=== PATIENT | female | born 1960 ===

== ENCOUNTER 2017-09-19 17:28 | Inpatient (IN) | payer MEDICARE ==
[2017-09-19 19:51] VITALS: BMI 22.5
--- NOTE | 2017-09-19 23:39 | CP.PCM.HP ---
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 A Right Below the Knee Amputation was done on 09/14/17 and the patient is now transferred to the [facility] for Continued care and Physical therapy. She is sleepy but arousable to answer questions. complains of pain to the right leg stump, no dizziness, nausea, vomits, No chest nor abdominal pain. She had Hemodialysis Yesterday 09/18/17. Next dialysis is for 09/21/17 PMH: ESRD on HD T Th and Sa; Anemia; Anxiety; Asthma, COPD; CAD; Diverticulitis ; DVT; HTN; GERD; Hypothyroidism; Seizure; Sleep Apnea; Pulmonary Hypertensio; PAD PSH: Coronary Stenting; Tonsillitis; Bilateral leg arterial bipass; AV graft; Hernia repair; Cesarian Section X2; Appendectomy SH: Former Smoker; No illegal drug use; No Alcohol use; FH: State: No known family Hx Allergies: Cipro; Hydralazine; Vancomycin and Radiation Dye Mediction: Reviewed Present on Admission - Present on Admission Any Indicators Present on Admission: No History of DVT/PE: No History of Uncontrolled Diabetes: No Urinary Catheter: No Decubitus Ulcer Present: No Review of Systems - Constitutional Constitutional: absent: Chills, Fever, Headache - EENT Eyes: Requires Corrective Lenses. absent: Blurred Vision, Diplopia Ears: absent: Decreased Hearing, Tinnitus Nose/Mouth/Throat: absent: Epistaxis, Nasal Congestion, Sinus Pain, Sinus Pressure - Cardiovascular Cardiovascular: absent: Chest Pain, Dyspnea, Edema - Respiratory Respiratory: Wheezing. absent: Cough, Stridor - Gastrointestinal Gastrointestinal: Constipation. absent: Diarrhea, Nausea, Vomiting - Genitourinary Genitourinary: Flank Pain, Urinary Frequency. absent: Dysuria Additional comments: Oliguria - Musculoskeletal Additional comments: Post surgical right leg pain - Integumentary Integumentary: absent: Rash, Sores - Neurological Neurological: absent: Confusion, Dizziness, Focal Weakness, Headaches, Weakness - Psychiatric Psychiatric: Anxiety. absent: Depression, Panic Attacks - Endocrine Endocrine: absent: Palpitations, Polydipsia, Polyphagia, Polyuria - Hematologic/Lymphatic Hematologic: absent: Easy Bleeding, Easy Bruising Past Patient History - Infectious Disease Hx of Infectious Diseases: None - Tetanus Immunizations Tetanus Immunization: Unknown - Past Medical History & Family History Past Medical History?: Yes - Past Social History Smoking Status: Former Smoker Chewing Tobacco Use: No Cigar Use: No Alcohol: None - CARDIAC Hx Congestive Heart Failure: Yes Hx Hypercholesterolemia: Yes Hx Hypertension: Yes - PULMONARY Hx Chronic Obstructive Pulmonary Disease (COPD): Yes - NEUROLOGICAL HX Cerebrovascular Accident: Yes - HEENT Hx HEENT Problems: Yes 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) Other/Comment: tinnitus, - RENAL Date of Last Dialysis Treatment: 08/08/17 - ENDOCRINE/METABOLIC Hx Diabetes Mellitus Type 2: No Hx Hypothyroidism: Yes - HEMATOLOGICAL/ONCOLOGICAL Hx Blood Transfusions: Yes Hx Blood Transfusion Reaction: No - INTEGUMENTARY Hx Dermatological Problems: Yes (non healing sugical wound to right ankle) Other/Comment: inner right ankle wounddry brown had 2 skin grafts, outer back of r foot red/purple closed wound with 2 small dry red areas painful, r foot swollen +2 pitting edema, r ft cold to touch, multiple skin discolorations to both arms, skin discolorations ble, fatty tumor left back r inner ankle wound healing, thick toenails both feet - MUSCULOSKELETAL/RHEUMATOLOGICAL Hx Arthritis: Yes - GASTROINTESTINAL Hx Gastrointestinal Disorders: Yes (chronic nausea, constipation,vomiting) Hx Crohn's Disease: No Hx Diverticulitis: Yes Hx Gall Bladder Disease: No Hx Gastroesophageal Reflux: Yes Hx Pancreatitis: No Other/Comment: diverticulosis, poor appetite and weight loss, hiatal hernia x2 - GENITOURINARY/GYNECOLOGICAL Hx Sexually Transmitted Disorders: No - PSYCHIATRIC Hx Emotional Abuse: No Hx Physical Abuse: No Hx Substance Use: No - SURGICAL HISTORY Hx Surgeries: Yes (tonsillectomy) Hx Appendectomy: Yes Hx Cardiac Catheterization: Yes Hx Section: Yes (X2) Hx Coronary Stent: Yes Hx Herniorrhaphy: Yes Hx Tonsillectomy: Yes Other/Comment: AV graft/ Bilateral leg Arterial bipass - ANESTHESIA Hx Anesthesia: Yes Hx Anesthesia Reactions: No Hx Malignant Hyperthermia: No Meds Allergies/Adverse Reactions: Allergies Allergy/AdvReac Type Severity Reaction Status Date / Time ciprofloxacin Allergy RASH Verified 09/19/17 21:49 hydralazine Allergy RASH Verified 09/19/17 21:49 vancomycin Allergy SHORTNESS Verified 09/19/17 21:[address] dye Allergy RASH Uncoded 09/19/17 21:49 Physical Exam - Constitutional Appears: No Acute Distress - Head Exam Head Exam: ATRAUMATIC, NORMAL INSPECTION, NORMOCEPHALIC - Eye Exam Eye Exam: EOMI, Normal appearance Pupil Exam: NORMAL ACCOMODATION, PERRL - ENT Exam ENT Exam: Mucous Membranes Moist, Normal Exam, Normal External Ear Exam - Neck Exam Neck exam: Positive for: Full Rom, Normal Inspection. Negative for: Lymphadenopathy, Tenderness - Respiratory Exam Respiratory Exam: absent: Rhonchi, Wheezes Additional comments: Inspiratory rales in both lung curran Left>right - Cardiovascular Exam Cardiovascular Exam: REGULAR RHYTHM, RRR, +S1, +S2. absent: Gallop - GI/Abdominal Exam GI & Abdominal Exam: Normal Bowel Sounds, Soft. absent: Mass, Organomegaly, Tenderness - Rectal Exam Rectal Exam: Deferred - Extremities Exam Additional comments: Right leg with post surgical dressing at BKA - Back Exam Back exam: NORMAL INSPECTION. absent: CVA tenderness (L), CVA tenderness (R) - Neurological Exam Neurological exam: CN II-XII Intact, Oriented x3, Reflexes Normal Additional comments: Sleepy but easily aroused and able to answer to questioning - Psychiatric Exam Psychiatric exam: Normal Affect, Normal Mood - Skin Skin Exam: Dry, Intact, Normal Color, Warm Results - Labs Labs: PND Assessment & Plan - Assessment and Plan (Free Text) Assessment: #. PAD s/p Right BKA #. ESRD On HD #. Anemia of Chronic Disease #. Anxiety #. Hypothyroidism #. HTN #. Seizure Plan: 56 years old female with hx ESRD on HD, DM, HTN and PAD, who was admitted to the [facility] on 09/06/17 because of Chronic right leg wound, had a 'Right Below the Knee Amputation' on 09/14/17. He is now transferred to the [facility] for Continued care and Physical therapy. #. PAD s/p Right BKA - Pain management - Wound care #. ESRD On HD Monday, and Monday - Consult Dr Hirsch Unloader Operator for Dialysis #. Anemia of Chronic Disease - Follow Iron panel - Vitamin B12 - Folate #. Anxiety - Continue Ativan PRN #. Hypothyroidism - Synthroid - TSH #. HTN - Zestril/Coreg/Norvasc/Catapress #. Seizure - Keppra #. CAD s/p coronary stent placement. - Coreg/ASA/lipitor #. DVT Prophylaxis with Heparin #. Code Status: Full - Date & Time Date: 09/19/17 Time: 23:39
[2017-09-20] MEDS: Albuterol 0.083% Inhal Sol (2.5 mg/3 mL) UD IH SCH ×5 (01:26→19:11)
[2017-09-20] MEDS: Levothyroxine 75 MCG TAB PO SCH (06:36)
[2017-09-20 06:46] LABS: BASO # 0.1 K/uL (0.0-0.2); BASO % 0.4 % (0.0-2.0); EOS % 0.4 % (0.0-4.0); HEMOGLOBIN 8.7 g/dL (12.0-16.0); LYMPH # 1.2 K/uL (1.0-4.3); LYMPH % 9.8 % (20.0-40.0); MEAN CELL VOLUME 89.9 fl (81.0-99.0); MEAN CORPUSCULAR HEMOGLOBIN 28.2 pg (27.0-31.0); MEAN CORPUSCULAR HGB CONC 31.4 g/dL (33.0-37.0); MEAN PLATELET VOLUME 9.7 fl (7.2-11.7); MONO % 8.2 % (0.0-10.0); NEUT % 81.2 % (50.0-75.0); PLATELET COUNT 269 K/uL (130-400); RBC 3.08 Mil/uL (3.80-5.20); RED CELL DISTRIBUTION WIDTH 18.9 % (11.5-14.5); WHITE BLOOD COUNT 12.3 K/uL (4.8-10.8)
[2017-09-20 06:56] LABS: INR 1.2; PROTHROMBIN TIME 12.9 Seconds (9.8-13.1)
[2017-09-20 06:58] LABS: PARTIAL THROMBOPLASTIN TIME 29.2 Seconds (25.6-37.1)
[2017-09-20 07:00] LABS: ALB/GLOB RATIO 1.4 (1.0-2.1); ALBUMIN 3.8 g/dL (3.5-5.0); CALCIUM 9.3 mg/dL (8.4-10.2)
[2017-09-20] MEDS ORDERED: Morphine 30 mg Immediate Release Tab PO SCH (09:00)
[2017-09-20] MEDS ORDERED: Patient's Own Med (Lisinopril [Zestril] 40 MG) PO SCH (09:00)
[2017-09-20] MEDS: NIFEdipine 30 mg ER Tab PO SCH (09:10)
[2017-09-20] MEDS: Pantoprazole 40 mg EC Tab PO SCH (09:11)
--- NOTE | 2017-09-20 10:26 | CP.PCM.CON ---
History of Present Illness - History of Present Illness History of Present Illness: 56 yo woman w/ multiple comorbidities is s/p right BKA and referred for pain management. Per report, patient had been on MS Contin and Dilaudid IV, as well as Neurontin 300mg q8h, previously at [facility], but since transfer patient has been lethargic and incoherent. She's arousable but unable to carry on a conversation to give history. She doesn't appear to be in discomfort, resting in bed with her eyes close, moaning/rambling but not specifically about pain. When asked about pain she pointed to both legs. Past Patient History - Infectious Disease Hx of Infectious Diseases: None - Tetanus Immunizations Tetanus Immunization: Unknown - Past Medical History & Family History Past Medical History?: Yes - Past Social History Smoking Status: Former Smoker Chewing Tobacco Use: No Cigar Use: No Alcohol: None - CARDIAC Hx Congestive Heart Failure: Yes Hx Hypercholesterolemia: Yes Hx Hypertension: Yes - PULMONARY Hx Chronic Obstructive Pulmonary Disease (COPD): Yes - NEUROLOGICAL HX Cerebrovascular Accident: Yes - HEENT Hx HEENT Problems: Yes Hx Blind: (makah r ear) Other/Comment: tinnitus, - RENAL Date of Last Dialysis Treatment: 08/08/17 - ENDOCRINE/METABOLIC Hx Diabetes Mellitus Type 2: No Hx Hypothyroidism: Yes - HEMATOLOGICAL/ONCOLOGICAL Hx Blood Transfusions: Yes Hx Blood Transfusion Reaction: No - INTEGUMENTARY Hx Dermatological Problems: Yes (non healing sugical wound to right ankle) Other/Comment: inner right ankle wounddry brown had 2 skin grafts, outer back of r foot red/purple closed wound with 2 small dry red areas painful, r foot swollen +2 pitting edema, r ft cold to touch, multiple skin discolorations to both arms, skin discolorations ble, fatty tumor left back r inner ankle wound healing, thick toenails both feet - MUSCULOSKELETAL/RHEUMATOLOGICAL Hx Arthritis: Yes - GASTROINTESTINAL Hx Gastrointestinal Disorders: Yes (chronic nausea, constipation,vomiting) Hx Crohn's Disease: No Hx Diverticulitis: Yes Hx Gall Bladder Disease: No Hx Gastroesophageal Reflux: Yes Hx Pancreatitis: No Other/Comment: diverticulosis, poor appetite and weight loss, hiatal hernia x2 - GENITOURINARY/GYNECOLOGICAL Hx Sexually Transmitted Disorders: No - PSYCHIATRIC Hx Emotional Abuse: No Hx Physical Abuse: No Hx Substance Use: No - SURGICAL HISTORY Hx Surgeries: Yes (tonsillectomy) Hx Appendectomy: Yes Hx Cardiac Catheterization: Yes Hx Section: Yes (X2) Hx Coronary Stent: Yes Hx Herniorrhaphy: Yes Hx Tonsillectomy: Yes Other/Comment: AV graft/ Bilateral leg Arterial bipass - ANESTHESIA Hx Anesthesia: Yes Hx Anesthesia Reactions: No Hx Malignant Hyperthermia: No Meds Allergies/Adverse Reactions: Allergies Allergy/AdvReac Type Severity Reaction Status Date / Time ciprofloxacin Allergy RASH Verified 09/19/17 21:49 hydralazine Allergy RASH Verified 09/19/17 21:49 vancomycin Allergy SHORTNESS Verified 09/19/17 21:[address] dye Allergy RASH Uncoded 09/19/17 21:49 - Medications Medications: Current Medications Albuterol Sulfate (Albuterol 0.083% Inhal Yaneli (2.5 Mg/3 Ml) Ud) 2.5 mg RQ6 ON LICENSE OF [facility] Last Admin: 09/20/17 01:26 Dose: 2.5 mg Alprazolam (Xanax) 0.25 mg PO HS ON LICENSE OF [facility] Stop: 09/26/17 23:46 Last Admin: 09/20/17 00:16 Dose: 0.25 mg Amlodipine Besylate (Norvasc) 10 mg PO DAILY ON LICENSE OF [facility] Last Admin: 09/20/17 09:11 Dose: 10 mg Aspirin (Ecotrin) 81 mg PO DAILY ON LICENSE OF [facility] Last Admin: 09/20/17 09:11 Dose: 81 mg Atorvastatin Calcium (Lipitor) 20 mg PO HS ON LICENSE OF [facility] Last Admin: 09/20/17 00:17 Dose: 20 mg Calcium Acetate (Phoslo) 667 mg PO [facility] Last Admin: 09/20/17 08:00 Dose: 667 mg Carvedilol (Coreg) 25 mg PO Q12 ON LICENSE OF [facility] Clonidine HCl (Catapres) 0.1 mg PO Q8 ON LICENSE OF [facility] Clopidogrel Bisulfate (Plavix) 75 mg PO DAILY ON LICENSE OF [facility] Gabapentin (Neurontin) 100 mg PO TID ON LICENSE OF [facility] Heparin Sodium (Porcine) (Heparin) 5,000 units SC Q12 ON LICENSE OF [facility] PRN Reason: Protocol Last Admin: 09/20/17 09:10 Dose: 5,000 units Labetalol HCl (Trandate) 300 mg PO Q8H PRN PRN Reason: HTN Lactulose (Enulose) 20 gm PO HS ON LICENSE OF [facility] Last Admin: 09/20/17 00:15 Dose: 20 gm Levetiracetam (Keppra) 500 mg PO Q12 ON LICENSE OF [facility] Levothyroxine Sodium (Synthroid) 75 mcg PO DAILY@0630 ON LICENSE OF [facility] Last Admin: 09/20/17 06:36 Dose: 75 mcg Lisinopril (Zestril) 40 mg PO 1300 ON LICENSE OF [facility] Lorazepam (Ativan) 2 mg PO Q6 PRN PRN Reason: Anxiety Nifedipine (Procardia Xl) 30 mg PO DAILY ON LICENSE OF [facility] Ondansetron HCl (Zofran Inj) 4 mg IVP Q6 PRN PRN Reason: Nausea/Vomiting Pantoprazole Sodium (Protonix Ec Tab) 40 mg PO DAILY ON LICENSE OF [facility] Last Admin: 09/20/17 09:11 Dose: 40 mg Tramadol HCl (Ultram) 50 mg PO TID PRN PRN Reason: Pain, moderate (4-7) Last Admin: 09/20/17 02:19 Dose: 50 mg Physical Exam - Constitutional Appears: No Acute Distress, Unkempt, Older Than Stated Age, Confused - Respiratory Exam Respiratory Exam: NORMAL BREATHING PATTERN - Extremities Exam Additional comments: s/p right BKA, dressing intact. Results - Vital Signs Recent Vital Signs: Last Vital Signs Temp 97.1 F L 09/20/17 08:40 Pulse 94 H 09/20/17 08:40 Resp 18 09/20/17 08:40 BP 154/80 H 09/20/17 09:12 Pulse Ox 96 09/20/17 08:40 - Labs Result Diagrams: 09/20/17 05:25 09/20/17 05:25 Labs: Laboratory Results - last 24 hr 09/20/17 09/20/17 09/20/17 05:25 05:25 05:25 WBC 12.3 H RBC 3.08 L Hgb 8.7 L Hct 27.7 L MCV 89.9 MCH 28.2 MCHC 31.4 L RDW 18.9 H Plt Count 269 MPV 9.7 Neut % (Auto) 81.2 H Lymph % (Auto) 9.8 L Dolores % (Auto) 8.2 Eos % (Auto) 0.4 Baso % (Auto) 0.4 Neut # (Auto) 10.0 H Lymph # (Auto) 1.2 Dolores # (Auto) 1.0 H Eos # (Auto) 0.0 Baso # (Auto) 0.1 PT 12.9 INR 1.2 APTT 29.2 Sodium 137 Potassium 4.2 Chloride 98 Carbon Dioxide 25 Anion Gap 18 BUN 59 H Creatinine 5.6 H Est GFR ( Amer) 9 Est GFR (Non-Af Amer) 8 Random Glucose 98 Calcium 9.3 Phosphorus 4.5 Magnesium 2.2 Total Bilirubin 0.5 AST 72 H D ALT 19 Alkaline Phosphatase 175 H Total Protein 6.4 Albumin 3.8 Globulin 2.7 Albumin/Globulin Ratio 1.4 TSH 3rd Generation 2.16 Assessment & Plan (1) Knee pain Assessment and Plan: 56 yo s/p right BKA. Without a complete history I'm not able to determine what her approximate opioid requirement is. Given her current mental state, it'd be appropriate to wean down on opioids for now. Medications will need to be titrated carefully due to her ESRD. - medical workup for possible AMS - d/c MS Contin and Dilaudid IV for now - decrease Neurontin to 100mg q8h - continue Ultram PO PRN for pain - when patient is more awake, can start Tylenol #[address] Tramadol for breakthrough pain - consider Ultram ER for long acting pain medication if necessary, for now, short acting medication only is more appropriate Status: Active
[2017-09-20 10:40] LABS: ANISOCYTOSIS SLIGHT; LYMPHOCYTE 8 % (20-50); MONOCYTE 6 % (0-10); NEUTROPHIL 86 % (42-75); TOTAL CELLS COUNTED 100
[2017-09-20 10:41] LABS: HYPOCHROMIC MODERATE
[2017-09-20 10:43] LABS: OVALOCYTES SLIGHT; SCHISTOCYTES SLIGHT
[2017-09-20 10:44] LABS: TEARDROP CELLS SLIGHT
[2017-09-20 11:28] LABS: PLATELET ESTIMATE NORMAL (NORMAL)
--- NOTE | 2017-09-20 12:18 | PSY.TMCNF ---
Nursing - Vital Signs Vital Signs (Last 8 hours): Vital Signs 09/20/17 09/20/17 09/20/17 08:40 09:00 09:08 Temperature 97.1 F L 97.1 F L Pulse Rate 94 H 94 H Respiratory 18 18 Rate Blood Pressure 154/80 H 154/80 H 154/80 H O2 Sat by Pulse 96 Oximetry 09/20/17 09/20/17 09/20/17 09:09 09:11 09:12 Temperature Pulse Rate Respiratory Rate Blood Pressure 154/80 H 154/80 H 154/80 H O2 Sat by Pulse Oximetry Pain: 0 - Precautions: Precautions: Fall Prevention - Medications/Other Issues Comment: LETHARGIC AND HALLUCIANATING - Consults Comment: DR. CARR, DR. HAZEL, DR. SONG - Skin Incision Site: RIGHT BKA STUMP Drainage: Sanguineous Dressing Status: Changed Incision: Rick Intact, Edematous Incision Line Treatment: CLEANSED WITH NSS AND COVERED WITH COMBINE AND DEVIKA DAILY - Toileting Toileting: Dependent - Bladder Management Bladder Pattern: Normal Voiding Method: Bedpan Bladder Management: Moderate Assistance Frequency of Accidents: 0- URINATES ONCE A DAY - Bowel Management Bowel Pattern: Normal Bowel Management: Moderate Assistance Frequency of Accidents: 0 - Transfers Transfers: Minimal Assistance - ADL's ADL's: Moderate Assistance - Pain Management Comments: MS CONTIN, DILAUDID IV, ULTRAM, NEURONTIN - Patient/Family Teaching Comments: CARE POST BKA AND SAFETY PRECAUTIONS - Goals/Time Frame Comments: PER MULTIDISCIPLINARY CARE PLAN AND GOALS - Provider Provider: CORRINA LEONN RN CRRN Physical Therapy - Bed Mobility Bed Mobility: Moderate Assistance - Transfers Wheelchair to Mat: Maximum Assistance Sit to Stand: Moderate Assistance - Ambulation Level of Assistance: Not Tested - Stair Negotiation Stairs: Level of Assistance: Not Tested - Standing Balance Static Stand: Minimal Assistance Dynamic Stand: Moderate Assistance - Pain Comment: RLE phantom limb pain - Insight/Carryover Insight/Carryover: Fair - Patient/Family Education Comment: Safety, desensitization techniques - Assessment/Plan Assessment: PT IE completed this AM. Mod A for bed mobility, mod/max A for transfers. Noted R knee and hip flexion contractures, L ankle pf contracture. Pt will benefit from skilled PT intervention to address deficits and maximize functional independence. - Goals Timeframe: 3 weeks Goals: Sit < > supine mod I. Functional transfers mod I - Provider Therapist: Aliyah Lim PT DPT License Number: [id number] Occupational Therapy - Arousal/Attention/Orientation Patient Orientation: Person - Pain Comment: RLE phantom limb pain - Insight/Carryover Insight/Carryover: Fair - Patient/Family Education Comment: Safety, desensitization techniques - Assessment/Plan Assessment: PT IE completed this AM. Mod A for bed mobility, mod/max A for transfers. Noted R knee and hip flexion contractures, L ankle pf contracture. Pt will benefit from skilled PT intervention to address deficits and maximize functional independence. - Goals Timeframe: 3 weeks Goals: Sit < > supine mod I. Functional transfers mod I Speech Therapy - Plan Assessment: PT IE completed this AM. Mod A for bed mobility, mod/max A for transfers. Noted R knee and hip flexion contractures, L ankle pf contracture. Pt will benefit from skilled PT intervention to address deficits and maximize functional independence. Recreational Therapy - Assessment Assessment/Plan: PT IE completed this AM. Mod A for bed mobility, mod/max A for transfers. Noted R knee and hip flexion contractures, L ankle pf contracture. Pt will benefit from skilled PT intervention to address deficits and maximize functional independence. Nutrition - Current Diet Current Diet/ Supplement/ Feedings: Heart healthy diet - Appetite Percent Meal Consumed: 25-49% - Comments Comments: CARE POST BKA AND SAFETY PRECAUTIONS - Assessment/Goals/Time Frame Assessment/Goals/Time Frame: LETHARGIC AND HALLUCIANATING - Provider Provider: Anya Wills RD Case Management - Discharge Plan Discharge Plan: Home with significant other/family Rehabilitation Plan - Treatment Plan Treatment Plan: Physical Therapy, Occupational Therapy, Dietary, Patient/Family Education - Recommendation Recommendation: Physical Therapy, Occupational Therapy, Dietary, Patient/Family Education - Discharge Plan Discharge to: Home
--- NOTE | 2017-09-20 14:07 | CP.PCM.CON ---
History of Present Illness - History of Present Illness History of Present Illness: 56 year old female with status post right below knee amputation with other history of HTn, ESRD, GERD CHF Review of Systems - Musculoskeletal Musculoskeletal: Abnormal Gait, Limited Range of Motion, Muscle Weakness Past Patient History - Infectious Disease Hx of Infectious Diseases: None - Tetanus Immunizations Tetanus Immunization: Unknown - Past Medical History & Family History Past Medical History?: Yes - Past Social History Smoking Status: Former Smoker Chewing Tobacco Use: No Cigar Use: No Alcohol: None - CARDIAC Hx Congestive Heart Failure: Yes Hx Hypercholesterolemia: Yes Hx Hypertension: Yes - PULMONARY Hx Chronic Obstructive Pulmonary Disease (COPD): Yes - NEUROLOGICAL HX Cerebrovascular Accident: Yes - HEENT Hx HEENT Problems: Yes 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) Other/Comment: tinnitus, - RENAL Date of Last Dialysis Treatment: 08/08/17 - ENDOCRINE/METABOLIC Hx Diabetes Mellitus Type 2: No Hx Hypothyroidism: Yes - HEMATOLOGICAL/ONCOLOGICAL Hx Blood Transfusions: Yes Hx Blood Transfusion Reaction: No - INTEGUMENTARY Hx Dermatological Problems: Yes (non healing sugical wound to right ankle) Other/Comment: inner right ankle wounddry brown had 2 skin grafts, outer back of r foot red/purple closed wound with 2 small dry red areas painful, r foot swollen +2 pitting edema, r ft cold to touch, multiple skin discolorations to both arms, skin discolorations ble, fatty tumor left back r inner ankle wound healing, thick toenails both feet - MUSCULOSKELETAL/RHEUMATOLOGICAL Hx Arthritis: Yes - GASTROINTESTINAL Hx Gastrointestinal Disorders: Yes (chronic nausea, constipation,vomiting) Hx Crohn's Disease: No Hx Diverticulitis: Yes Hx Gall Bladder Disease: No Hx Gastroesophageal Reflux: Yes Hx Pancreatitis: No Other/Comment: diverticulosis, poor appetite and weight loss, hiatal hernia x2 - GENITOURINARY/GYNECOLOGICAL Hx Sexually Transmitted Disorders: No - PSYCHIATRIC Hx Emotional Abuse: No Hx Physical Abuse: No Hx Substance Use: No - SURGICAL HISTORY Hx Surgeries: Yes (tonsillectomy) Hx Appendectomy: Yes Hx Cardiac Catheterization: Yes Hx Section: Yes (X2) Hx Coronary Stent: Yes Hx Herniorrhaphy: Yes Hx Tonsillectomy: Yes Other/Comment: AV graft/ Bilateral leg Arterial bipass - ANESTHESIA Hx Anesthesia: Yes Hx Anesthesia Reactions: No Hx Malignant Hyperthermia: No Meds Allergies/Adverse Reactions: Allergies Allergy/AdvReac Type Severity Reaction Status Date / Time ciprofloxacin Allergy RASH Verified 09/19/17 21:49 hydralazine Allergy RASH Verified 09/19/17 21:49 vancomycin Allergy SHORTNESS Verified 09/19/17 21:[address] dye Allergy RASH Uncoded 09/19/17 21:49 - Medications Medications: Current Medications Albuterol Sulfate (Albuterol 0.083% Inhal Yaneli (2.5 Mg/3 Ml) Ud) 2.5 mg IH RQ6 [facility] Last Admin: 09/20/17 01:26 Dose: 2.5 mg Alprazolam (Xanax) 0.25 mg PO [facility] Stop: 09/26/17 23:46 Last Admin: 09/20/17 00:16 Dose: 0.25 mg Amlodipine Besylate (Norvasc) 10 mg PO DAILY [facility] Last Admin: 09/20/17 09:11 Dose: 10 mg Aspirin (Ecotrin) 81 mg PO DAILY [facility] Last Admin: 09/20/17 09:11 Dose: 81 mg Atorvastatin Calcium (Lipitor) 20 mg PO HS [facility] Last Admin: 09/20/17 00:17 Dose: 20 mg Calcium Acetate (Phoslo) 667 mg PO WM [facility] Last Admin: 09/20/17 13:00 Dose: 667 mg Carvedilol (Coreg) 25 mg PO Q12 [facility] Clonidine HCl (Catapres) 0.1 mg PO Q8 [facility] Last Admin: 09/20/17 13:06 Dose: Not Given Clopidogrel Bisulfate (Plavix) 75 mg PO DAILY [facility] Last Admin: 09/20/17 09:10 Dose: 75 mg Gabapentin (Neurontin) 100 mg PO TID [facility] Last Admin: 09/20/17 13:09 Dose: 100 mg Heparin Sodium (Porcine) (Heparin) 5,000 units SC Q12 [facility] PRN Reason: Protocol Last Admin: 09/20/17 09:10 Dose: 5,000 units Labetalol HCl (Trandate) 300 mg PO Q8H PRN PRN Reason: HTN Lactulose (Enulose) 20 gm PO [facility] Last Admin: 09/20/17 00:15 Dose: 20 gm Levetiracetam (Keppra) 500 mg PO Q12 [facility] Levothyroxine Sodium (Synthroid) 75 mcg PO DAILY@0630 [facility] Last Admin: 09/20/17 06:36 Dose: 75 mcg Lisinopril (Zestril) 40 mg PO 1300 [facility] Lorazepam (Ativan) 2 mg PO Q6 PRN PRN Reason: Anxiety Nifedipine (Procardia Xl) 30 mg PO DAILY [facility] Last Admin: 09/20/17 09:10 Dose: 30 mg Ondansetron HCl (Zofran Inj) 4 mg IVP Q6 PRN PRN Reason: Nausea/Vomiting Pantoprazole Sodium (Protonix Ec Tab) 40 mg PO DAILY [facility] Last Admin: 09/20/17 09:11 Dose: 40 mg Tramadol HCl (Ultram) 50 mg PO TID PRN PRN Reason: Pain, moderate (4-7) Last Admin: 09/20/17 02:19 Dose: 50 mg Physical Exam - Head Exam Head Exam: ATRAUMATIC, NORMAL INSPECTION, NORMOCEPHALIC - Eye Exam Eye Exam: EOMI, Normal appearance, PERRL Pupil Exam: NORMAL ACCOMODATION - ENT Exam ENT Exam: Mucous Membranes Moist, Normal Exam - Neck Exam Neck exam: Positive for: Normal Inspection - Respiratory Exam Respiratory Exam: Clear to Auscultation Bilateral, NORMAL BREATHING PATTERN - Cardiovascular Exam Cardiovascular Exam: REGULAR RHYTHM - GI/Abdominal Exam GI & Abdominal Exam: Normal Bowel Sounds - Rectal Exam Rectal Exam: NORMAL INSPECTION - Exam External exam: NORMAL EXTERNAL EXAM - Extremities Exam Extremities exam: Positive for: normal inspection Additional comments: righ tside amputation, DTI on right knee and blister noted on the leg - Back Exam Back exam: NORMAL INSPECTION - Neurological Exam Neurological exam: Alert, CN II-XII Intact, Oriented x3 - Psychiatric Exam Psychiatric exam: Normal Affect, Normal Mood - Skin Skin Exam: Dry, Intact Results - Vital Signs Recent Vital Signs: Last Vital Signs Temp 97.1 F L 09/20/17 09:00 Pulse 79 09/20/17 13:06 Resp 18 09/20/17 09:00 BP 99/58 L 09/20/17 13:06 Pulse Ox 96 09/20/17 08:40 - Labs Result Diagrams: 09/20/17 05:25 09/20/17 05:25 Labs: Laboratory Results - last 24 hr 09/20/17 09/20/17 09/20/17 05:25 05:25 05:25 WBC 12.3 H RBC 3.08 L Hgb 8.7 L Hct 27.7 L MCV 89.9 MCH 28.2 MCHC 31.4 L RDW 18.9 H Plt Count 269 MPV 9.7 Neut % (Auto) 81.2 H Lymph % (Auto) 9.8 L [place] % (Auto) 8.2 Eos % (Auto) 0.4 Baso % (Auto) 0.4 Neut # (Auto) 10.0 H Lymph # (Auto) 1.2 Carbon # (Auto) 1.0 H Eos # (Auto) 0.0 Baso # (Auto) 0.1 Neutrophils % (Manual) 86 H Lymphocytes % (Manual) 8 L Monocytes % (Manual) 6 Platelet Estimate Normal Hypochromasia (manual) Moderate Anisocytosis (manual) Slight Tear Drop Cells Slight Ovalocytes Slight Schistocytes Slight PT 12.9 INR 1.2 APTT 29.2 Sodium 137 Potassium 4.2 Chloride 98 Carbon Dioxide 25 Anion Gap 18 BUN 59 H Creatinine 5.6 H Est GFR ( Amer) 9 Est GFR (Non-Af Amer) 8 POC Glucose (mg/dL) Random Glucose 98 Calcium 9.3 Phosphorus 4.5 Magnesium 2.2 Total Bilirubin 0.5 AST 72 H D ALT 19 Alkaline Phosphatase 175 H Total Protein 6.4 Albumin 3.8 Globulin 2.7 Albumin/Globulin Ratio 1.4 TSH 3rd Generation 2.16 09/20/17 12:13 WBC RBC Hgb Hct MCV MCH MCHC RDW Plt Count MPV Neut % (Auto) Lymph % (Auto) [place] % (Auto) Eos % (Auto) Baso % (Auto) Neut # (Auto) Lymph # (Auto) [place] # (Auto) Eos # (Auto) Baso # (Auto) Neutrophils % (Manual) Lymphocytes % (Manual) Monocytes % (Manual) Platelet Estimate Hypochromasia (manual) Anisocytosis (manual) Tear Drop Cells Ovalocytes Schistocytes PT INR APTT Sodium Potassium Chloride Carbon Dioxide Anion Gap BUN Creatinine Est GFR ( Amer) Est GFR (Non-Af Amer) POC Glucose (mg/dL) 97 Random Glucose Calcium Phosphorus Magnesium Total Bilirubin AST ALT Alkaline Phosphatase Total Protein Albumin Globulin Albumin/Globulin Ratio TSH 3rd Generation Assessment & Plan (1) Amputation of right lower extremity below knee Assessment and Plan: plan for stump wrapping and shaping, physical, occupational rec therapy to write for overall plan of care Status: Acute (2) Anemia of chronic disorder Status: Active (3) Deep venous thrombosis of lower extremity Status: Active (4) Knee pain Status: Active (5) Renal artery stenosis Status: Active (6) AV shunt thrombosis Status: Acute (7) Abdominal pain Status: Acute (8) Abdominal pain Status: Acute (9) Acute pulmonary edema Status: Acute
--- NOTE | 2017-09-20 14:10 | PCM.OPOC ---
Physiatry Overall Plan of Care - Overall Plan of Care Estimated Length of Stay in Weeks: 3 Rehab Impairment: Mobility, Gait, Cognition, Balance, Coordination Etiologic Diagnosis: Hip/Knee Surgery - Anticipated Interventions Physical Therapy:: Yes Occupational Therapy:: Yes Speech Therapy:: Yes Recreational Therapy:: Yes - Therapy Goals Bed Mobility: Independent Ambulation: Contact Guard Functional Positional Changes:: Independent - Functional Outcomes Functional Outcomes: fair - Discharge Plan Identification of Barriers to Discharge: Cognition Discharge Destination: Home
--- NOTE | 2017-09-20 18:24 | CP.PCM.CON ---
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) Other/Comment: tinnitus, - RENAL Date of Last Dialysis Treatment: 08/08/17 - ENDOCRINE/METABOLIC Hx Diabetes Mellitus Type 2: No Hx Hypothyroidism: Yes - HEMATOLOGICAL/ONCOLOGICAL Hx Blood Transfusions: Yes Hx Blood Transfusion Reaction: No - INTEGUMENTARY Hx Dermatological Problems: Yes (non healing sugical wound to right ankle) Other/Comment: inner right ankle wounddry brown had 2 skin grafts, outer back of r foot red/purple closed wound with 2 small dry red areas painful, r foot swollen +2 pitting edema, r ft cold to touch, multiple skin discolorations to both arms, skin discolorations ble, fatty tumor left back r inner ankle wound healing, thick toenails both feet - MUSCULOSKELETAL/RHEUMATOLOGICAL Hx Arthritis: Yes - GASTROINTESTINAL Hx Gastrointestinal Disorders: Yes (chronic nausea, constipation,vomiting) Hx Crohn's Disease: No Hx Diverticulitis: Yes Hx Gall Bladder Disease: No Hx Gastroesophageal Reflux: Yes Hx Pancreatitis: No Other/Comment: diverticulosis, poor appetite and weight loss, hiatal hernia x2 - GENITOURINARY/GYNECOLOGICAL Hx Sexually Transmitted Disorders: No - PSYCHIATRIC Hx Emotional Abuse: No Hx Physical Abuse: No Hx Substance Use: No - SURGICAL HISTORY Hx Surgeries: Yes (tonsillectomy) Hx Appendectomy: Yes Hx Cardiac Catheterization: Yes Hx Section: Yes (X2) Hx Coronary Stent: Yes Hx Herniorrhaphy: Yes Hx Tonsillectomy: Yes Other/Comment: AV graft/ Bilateral leg Arterial bipass - ANESTHESIA Hx Anesthesia: Yes Hx Anesthesia Reactions: No Hx Malignant Hyperthermia: No Meds Allergies/Adverse Reactions: Allergies Allergy/AdvReac Type Severity Reaction Status Date / Time ciprofloxacin Allergy RASH Verified 09/19/17 21:49 hydralazine Allergy RASH Verified 09/19/17 21:49 vancomycin Allergy SHORTNESS Verified 09/19/17 21:[address] dye Allergy RASH Uncoded 09/19/17 21:49 - Medications Medications: Current Medications Albuterol Sulfate (Albuterol 0.083% Inhal Yaneli (2.5 Mg/3 Ml) Ud) 2.5 mg IH RQ6 [facility] Last Admin: 09/20/17 15:27 Dose: 2.5 mg Alprazolam (Xanax) 0.25 mg PO HS [facility] Stop: 09/26/17 23:46 Last Admin: 09/20/17 00:16 Dose: 0.25 mg Amlodipine Besylate (Norvasc) 10 mg PO DAILY [facility] Last Admin: 09/20/17 09:11 Dose: 10 mg Aspirin (Ecotrin) 81 mg PO DAILY [facility] Last Admin: 09/20/17 09:11 Dose: 81 mg Atorvastatin Calcium (Lipitor) 20 mg PO HS [facility] Last Admin: 09/20/17 00:17 Dose: 20 mg Calcium Acetate (Phoslo) 667 mg PO WM [facility] Last Admin: 09/20/17 13:00 Dose: 667 mg Carvedilol (Coreg) 12.5 mg PO Q12 [facility] Clonidine HCl (Catapres) 0.1 mg PO Q12H [facility] Clopidogrel Bisulfate (Plavix) 75 mg PO DAILY [facility] Last Admin: 09/20/17 09:10 Dose: 75 mg Gabapentin (Neurontin) 100 mg PO TID [facility] Last Admin: 09/20/17 13:09 Dose: 100 mg Heparin Sodium (Porcine) (Heparin) 5,000 units SC Q12 [facility] PRN Reason: Protocol Last Admin: 09/20/17 09:10 Dose: 5,000 units Labetalol HCl (Trandate) 300 mg PO Q8H PRN PRN Reason: HTN Lactulose (Enulose) 20 gm PO HS [facility] Last Admin: 09/20/17 00:15 Dose: 20 gm Levetiracetam (Keppra) 500 mg PO Q12 [facility] Levothyroxine Sodium (Synthroid) 75 mcg PO DAILY@0630 [facility] Last Admin: 09/20/17 06:36 Dose: 75 mcg Lisinopril (Zestril) 40 mg PO 1300 [facility] Lorazepam (Ativan) 2 mg PO Q6 PRN PRN Reason: Anxiety Nifedipine (Procardia Xl) 30 mg PO DAILY [facility] Last Admin: 09/20/17 09:10 Dose: 30 mg Ondansetron HCl (Zofran Inj) 4 mg IVP Q6 PRN PRN Reason: Nausea/Vomiting Pantoprazole Sodium (Protonix Ec Tab) 40 mg PO DAILY [facility] Last Admin: 09/20/17 09:11 Dose: 40 mg Tramadol HCl (Ultram) 50 mg PO TID PRN PRN Reason: Pain, moderate (4-7) Last Admin: 09/20/17 02:19 Dose: 50 mg Results - Vital Signs Recent Vital Signs: Last Vital Signs Temp 97.1 F L 09/20/17 09:00 Pulse 72 09/20/17 13:55 Resp 18 09/20/17 13:55 BP 101/78 09/20/17 13:55 Pulse Ox 99 09/20/17 13:55 - Labs Result Diagrams: 09/20/17 05:25 09/20/17 05:25 Labs: Laboratory Results - last 24 hr 09/20/17 09/20/17 09/20/17 05:25 05:25 05:25 WBC 12.3 H RBC 3.08 L Hgb 8.7 L Hct 27.7 L MCV 89.9 MCH 28.2 MCHC 31.4 L RDW 18.9 H Plt Count 269 MPV 9.7 Neut % (Auto) 81.2 H Lymph % (Auto) 9.8 L [place] % (Auto) 8.2 Eos % (Auto) 0.4 Baso % (Auto) 0.4 Neut # (Auto) 10.0 H Lymph # (Auto) 1.2 [place] # (Auto) 1.0 H Eos # (Auto) 0.0 Baso # (Auto) 0.1 Neutrophils % (Manual) 86 H Lymphocytes % (Manual) 8 L Monocytes % (Manual) 6 Platelet Estimate Normal Hypochromasia (manual) Moderate Anisocytosis (manual) Slight Tear Drop Cells Slight Ovalocytes Slight Schistocytes Slight PT 12.9 INR 1.2 APTT 29.2 Sodium 137 Potassium 4.2 Chloride 98 Carbon Dioxide 25 Anion Gap 18 BUN 59 H Creatinine 5.6 H Est GFR ( Amer) 9 Est GFR (Non-Af Amer) 8 POC Glucose (mg/dL) Random Glucose 98 Calcium 9.3 Phosphorus 4.5 Magnesium 2.2 Total Bilirubin 0.5 AST 72 H D ALT 19 Alkaline Phosphatase 175 H Total Protein 6.4 Albumin 3.8 Globulin 2.7 Albumin/Globulin Ratio 1.4 TSH 3rd Generation 2.16 09/20/17 09/20/17 12:13 17:22 WBC RBC Hgb Hct MCV MCH MCHC RDW Plt Count MPV Neut % (Auto) Lymph % (Auto) [place] % (Auto) Eos % (Auto) Baso % (Auto) Neut # (Auto) Lymph # (Auto) [place] # (Auto) Eos # (Auto) Baso # (Auto) Neutrophils % (Manual) Lymphocytes % (Manual) Monocytes % (Manual) Platelet Estimate Hypochromasia (manual) Anisocytosis (manual) Tear Drop Cells Ovalocytes Schistocytes PT INR APTT Sodium Potassium Chloride Carbon Dioxide Anion Gap BUN Creatinine Est GFR ( Amer) Est GFR (Non-Af Amer) POC Glucose (mg/dL) 97 85 Random Glucose Calcium Phosphorus Magnesium Total Bilirubin AST ALT Alkaline Phosphatase Total Protein Albumin Globulin Albumin/Globulin Ratio TSH 3rd Generation
[2017-09-20] MEDS: Epoetin Alfa 20000 UNIT/ML Inj IV ONE ×2 (19:32→19:33)
[2017-09-20] MEDS ORDERED: Morphine 30 mg SR Tab PO SCH (21:00)
[2017-09-20 21:42] LABS: IRON 16 ug/dL (37-170)
[2017-09-20 21:51] LABS: % IRON SATURATION 10 % (20-55); TOTAL IRON BINDING CAPACITY 155 ug/dL (250-450)
[2017-09-21] MEDS: Albuterol 0.083% Inhal Sol (2.5 mg/3 mL) UD IH SCH ×4 (01:00→19:01)
[2017-09-21] MEDS: Levothyroxine 75 MCG TAB PO SCH (06:12)
[2017-09-21] MEDS: Pantoprazole 40 mg EC Tab PO SCH (09:24)
[2017-09-21] MEDS: NIFEdipine 30 mg ER Tab PO SCH (11:00)
[2017-09-21 12:09] LABS: HEPATITIS B SURFACE AG Negative (NEGATIVE)
[2017-09-21 12:14] LABS: HEPATITIS B CORE AB NEGATIVE (NEGATIVE)
[2017-09-21 12:26] LABS: HEPATITIS C ANTIBODY NEGATIVE (NEGATIVE)
[2017-09-22] MEDS: Albuterol 0.083% Inhal Sol (2.5 mg/3 mL) UD IH SCH ×4 (02:34→19:00)
[2017-09-22] MEDS: Levothyroxine 75 MCG TAB PO SCH (05:43)
--- NOTE | 2017-09-22 08:35 | CP.PCM.PN ---
Subjective - Date & Time of Evaluation Date of Evaluation: 09/22/17 Time of Evaluation: 08:30 - Subjective Subjective: Patient appears to be more alert today. Oriented to person, place, and time. Complains of pain in the right leg diffusely, as well as phantom limb pain. Per staff, her mentation has improved compared to yesterday or the day before, when she was hallucinating. Objective - Vital Signs/Intake and Output Vital Signs (last 24 hours): Temp Pulse Resp BP Pulse Ox 97.3 F L 96 H 20 138/64 97 09/22/17 07:31 09/22/17 07:31 09/22/17 07:31 09/22/17 07:31 09/22/17 07:31 - Medications Medications: Current Medications Albuterol Sulfate (Albuterol 0.083% Inhal Yaneli (2.5 Mg/3 Ml) Ud) 2.5 mg IH RQ6 [facility] Last Admin: 09/22/17 08:14 Dose: 2.5 mg Alprazolam (Xanax) 0.25 mg PO HS PRN PRN Reason: Anxiety Stop: 09/27/17 22:08 Amlodipine Besylate (Norvasc) 10 mg PO DAILY [facility] Last Admin: 09/21/17 11:00 Dose: Not Given Aspirin (Ecotrin) 81 mg PO DAILY [facility] Last Admin: 09/21/17 09:21 Dose: 81 mg Atorvastatin Calcium (Lipitor) 20 mg PO HS [facility] Last Admin: 09/21/17 21:21 Dose: 20 mg Calcium Acetate (Phoslo) 667 mg PO TID@0800,1200,1700 [facility] Carvedilol (Coreg) 12.5 mg PO Q12 [facility] Last Admin: 09/21/17 21:58 Dose: 12.5 mg Clonidine HCl (Catapres) 0.1 mg PO Q12H [facility] Last Admin: 09/21/17 21:57 Dose: 0.1 mg Clopidogrel Bisulfate (Plavix) 75 mg PO DAILY [facility] Last Admin: 09/21/17 09:24 Dose: 75 mg Epoetin Tobin (Procrit) 20,000 unit IV TTS [facility] Gabapentin (Neurontin) 100 mg PO TID [facility] Last Admin: 09/21/17 21:18 Dose: 100 mg Heparin Sodium (Porcine) (Heparin) 5,000 units SC Q12 [facility] PRN Reason: Protocol Last Admin: 09/21/17 21:20 Dose: 5,000 units Labetalol HCl (Trandate) 300 mg PO Q8H PRN PRN Reason: HTN Lactulose (Enulose) 20 gm PO HS [facility] Last Admin: 09/21/17 21:58 Dose: 20 gm Levetiracetam (Keppra) 500 mg PO Q12 [facility] Last Admin: 09/21/17 21:21 Dose: 500 mg Levothyroxine Sodium (Synthroid) 75 mcg PO DAILY@0630 [facility] Last Admin: 09/22/17 05:43 Dose: 75 mcg Lisinopril (Zestril) 40 mg PO 1300 [facility] Last Admin: 09/21/17 13:00 Dose: Not Given Lorazepam (Ativan) 2 mg PO Q6 PRN PRN Reason: Anxiety Nifedipine (Procardia Xl) 30 mg PO DAILY [facility] Last Admin: 09/21/17 11:00 Dose: Not Given Ondansetron HCl (Zofran Inj) 4 mg IVP Q6 PRN PRN Reason: Nausea/Vomiting Pantoprazole Sodium (Protonix Ec Tab) 40 mg PO DAILY [facility] Last Admin: 09/21/17 09:24 Dose: 40 mg Tramadol HCl (Ultram) 50 mg PO TID PRN PRN Reason: Other Last Admin: 09/22/17 06:16 Dose: 50 mg - Labs Labs: 09/20/17 05:25 09/20/17 05:25 PT 12.9 Seconds (9.8-13.1) 09/20/17 05:25 INR 1.2 09/20/17 05:25 APTT 29.2 Seconds (25.6-37.1) 09/20/17 05:25 - Extremities Exam Additional comments: TTP over right stump. Dressing intact. Assessment and Plan (1) Knee pain Assessment & Plan: 56 yo woman s/p right BKA has stump pain and phantom pain. Mentation improving. - increase Neurontin to 200mg q8h - d/c Tramadol, start T#3 for pain - hold long acting agent for now, mental status still needs to be observed Status: Active
[2017-09-22] MEDS: Acetaminophen-Codeine 300/30 mg Tab PO PRN (08:57)
[2017-09-22] MEDS: Pantoprazole 40 mg EC Tab PO SCH (09:00)
[2017-09-22] MEDS: NIFEdipine 30 mg ER Tab PO SCH (10:24)
--- NOTE | 2017-09-22 12:20 | CP.PCM.CON ---
History of Present Illness - History of Present Illness History of Present Illness: General Surgery Dr. Grajeda 56 y/o F w/ extensive PMHx is s/p R BKA performed on 09/14 @[facility] for PVD. Pt transferred to [facility] rehab facility. Per nursing, pt has developed DTI at wound site w/ erythema and drainage. Surgery consulted for wound evaluation. Pt states pain localized to distal, lateral aspect of BKA incision. Pt denies F/C, N/V. Pt refused examination of wound, stating dressing was just changed and did not leg unwrapped. PMHx: DM2, ESRD on HD (TThSat), CHF, CAD, PAD, CVAs, seizures, pulm HTN, HLD, asthma, COPD, GERD, diverticulosis, anemia, hypothyroidism, anxiety/depression Meds: reviewed in chart ALL: cipro, hydralazine, vanco, CT dye PSHx: LE bypass, debridements/skin graft LLE, RUE AVFs, R IJ HD cath, appy, IHR , SHx: former smoker, denies EtOH, drug use FHx: noncontributory Review of Systems - Review of Systems All systems: reviewed and no additional remarkable complaints except (see HPI) Past Patient History - Infectious Disease Hx of Infectious Diseases: None - Tetanus Immunizations Tetanus Immunization: Unknown - Past Medical History & Family History Past Medical History?: Yes - Past Social History Smoking Status: Former Smoker Chewing Tobacco Use: No Cigar Use: No Alcohol: None - CARDIAC Hx Congestive Heart Failure: Yes Hx Hypercholesterolemia: Yes Hx Hypertension: Yes - PULMONARY Hx Chronic Obstructive Pulmonary Disease (COPD): Yes - NEUROLOGICAL HX Cerebrovascular Accident: Yes - HEENT Hx HEENT Problems: Yes Hx Blind: (sun'aq r ear) Other/Comment: tinnitus, - RENAL Date of Last Dialysis Treatment: 08/08/17 - ENDOCRINE/METABOLIC Hx Diabetes Mellitus Type 2: No Hx Hypothyroidism: Yes - HEMATOLOGICAL/ONCOLOGICAL Hx Blood Transfusions: Yes Hx Blood Transfusion Reaction: No - INTEGUMENTARY Hx Dermatological Problems: Yes (non healing sugical wound to right ankle) Other/Comment: inner right ankle wounddry brown had 2 skin grafts, outer back of r foot red/purple closed wound with 2 small dry red areas painful, r foot swollen +2 pitting edema, r ft cold to touch, multiple skin discolorations to both arms, skin discolorations ble, fatty tumor left back r inner ankle wound healing, thick toenails both feet - MUSCULOSKELETAL/RHEUMATOLOGICAL Hx Arthritis: Yes - GASTROINTESTINAL Hx Gastrointestinal Disorders: Yes (chronic nausea, constipation,vomiting) Hx Crohn's Disease: No Hx Diverticulitis: Yes Hx Gall Bladder Disease: No Hx Gastroesophageal Reflux: Yes Hx Pancreatitis: No Other/Comment: diverticulosis, poor appetite and weight loss, hiatal hernia x2 - GENITOURINARY/GYNECOLOGICAL Hx Sexually Transmitted Disorders: No - PSYCHIATRIC Hx Emotional Abuse: No Hx Physical Abuse: No Hx Substance Use: No - SURGICAL HISTORY Hx Surgeries: Yes (tonsillectomy) Hx Appendectomy: Yes Hx Cardiac Catheterization: Yes Hx Section: Yes (X2) Hx Coronary Stent: Yes Hx Herniorrhaphy: Yes Hx Tonsillectomy: Yes Other/Comment: AV graft/ Bilateral leg Arterial bipass - ANESTHESIA Hx Anesthesia: Yes Hx Anesthesia Reactions: No Hx Malignant Hyperthermia: No Meds Allergies/Adverse Reactions: Allergies Allergy/AdvReac Type Severity Reaction Status Date / Time ciprofloxacin Allergy RASH Verified 09/19/17 21:49 hydralazine Allergy RASH Verified 09/19/17 21:49 vancomycin Allergy SHORTNESS Verified 09/19/17 21:[address] dye Allergy RASH Uncoded 09/19/17 21:49 - Medications Medications: Current Medications Acetaminophen/Codeine Phosphate (Tylenol/Codeine 300 Mg/30 Mg) 1 tab PO Q6 PRN PRN Reason: Pain, severe (8-10) Last Admin: 09/22/17 08:57 Dose: 1 tab Albuterol Sulfate (Albuterol 0.083% Inhal Yaneli (2.5 Mg/3 Ml) Ud) 2.5 mg IH RQ6 [facility] Last Admin: 09/22/17 08:14 Dose: 2.5 mg Alprazolam (Xanax) 0.25 mg PO HS PRN PRN Reason: Anxiety Stop: 09/27/17 22:08 Amlodipine Besylate (Norvasc) 10 mg PO DAILY [facility] Last Admin: 09/22/17 10:24 Dose: 10 mg Aspirin (Ecotrin) 81 mg PO DAILY [facility] Last Admin: 09/22/17 08:58 Dose: 81 mg Atorvastatin Calcium (Lipitor) 20 mg PO HS [facility] Last Admin: 09/21/17 21:21 Dose: 20 mg Calcium Acetate (Phoslo) 667 mg PO TID@0800,1200,1700 [facility] Last Admin: 09/22/17 08:58 Dose: 667 mg Carvedilol (Coreg) 12.5 mg PO Q12 [facility] Last Admin: 09/22/17 10:24 Dose: 12.5 mg Clonidine HCl (Catapres) 0.1 mg PO Q12H [facility] Last Admin: 09/22/17 08:59 Dose: 0.1 mg Clopidogrel Bisulfate (Plavix) 75 mg PO DAILY [facility] Last Admin: 09/22/17 09:00 Dose: 75 mg Epoetin Tobin (Procrit) 20,000 unit IV TTS [facility] Gabapentin (Neurontin) 200 mg PO TID [facility] Last Admin: 09/22/17 09:00 Dose: 200 mg Heparin Sodium (Porcine) (Heparin) 5,000 units SC Q12 [facility] PRN Reason: Protocol Last Admin: 09/22/17 08:59 Dose: 5,000 units Labetalol HCl (Trandate) 300 mg PO Q8H PRN PRN Reason: HTN Lactulose (Enulose) 20 gm PO HS [facility] Last Admin: 09/21/17 21:58 Dose: 20 gm Levetiracetam (Keppra) 500 mg PO Q12 [facility] Last Admin: 09/22/17 08:59 Dose: 500 mg Levothyroxine Sodium (Synthroid) 75 mcg PO DAILY@0630 [facility] Last Admin: 09/22/17 05:43 Dose: 75 mcg Lisinopril (Zestril) 40 mg PO 1300 [facility] Last Admin: 09/21/17 13:00 Dose: Not Given Lorazepam (Ativan) 2 mg PO Q6 PRN PRN Reason: Anxiety Nifedipine (Procardia Xl) 30 mg PO DAILY [facility] Last Admin: 09/22/17 10:24 Dose: 30 mg Ondansetron HCl (Zofran Inj) 4 mg IVP Q6 PRN PRN Reason: Nausea/Vomiting Pantoprazole Sodium (Protonix Ec Tab) 40 mg PO DAILY [facility] Last Admin: 09/22/17 09:00 Dose: 40 mg Tramadol HCl (Ultram) 50 mg PO TID PRN PRN Reason: Pain, moderate (4-7) Physical Exam - Constitutional Appears: Non-toxic, No Acute Distress, Older Than Stated Age - Head Exam Head Exam: NORMAL INSPECTION - Eye Exam Eye Exam: Normal appearance - ENT Exam ENT Exam: Mucous Membranes Moist - Respiratory Exam Respiratory Exam: NORMAL BREATHING PATTERN. absent: Accessory Muscle Use, Respiratory Distress - Cardiovascular Exam Cardiovascular Exam: REGULAR RHYTHM. absent: Bradycardia, Tachycardia - GI/Abdominal Exam GI & Abdominal Exam: Soft. absent: Distended, Normal Bowel Sounds - Extremities Exam Additional comments: R BKA dressing c/d/i. no drainage noted mid-thigh ecchymosis at site of brace pt refused exam of surgical incision - Neurological Exam Neurological exam: Alert, Altered - Psychiatric Exam Psychiatric exam: Normal Affect, Normal Mood - Skin Skin Exam: Dry, Intact, Normal Color, Warm Results - Vital Signs Recent Vital Signs: Last Vital Signs Temp 97.3 F L 09/22/17 07:31 Pulse 88 09/22/17 10:24 Resp 20 09/22/17 07:31 BP 147/60 09/22/17 10:24 Pulse Ox 97 09/22/17 07:31 - Labs Result Diagrams: 09/20/17 05:25 09/20/17 05:25 Labs: Laboratory Results - last 24 hr 09/20/17 09/20/17 09/20/17 20:00 20:08 20:08 PTH Intact Whole Molec 823 H Hep Bs Antibody Negative Hepatitis C Antibody Negative Assessment & Plan - Assessment and Plan (Free Text) Assessment: 56 y/o F s/p R BKA - CBC w/ diff - may need IV Abx pending CBC results - dressing changes daily and PRN - call surgery resident at next dressing change - monitor vitals - cont pain management --> non-narcotic 2/2 pt AMS - offload pressure on wound; keep leg elevated Will discuss w/ Dr. Taras Murguia DO PGY3
--- NOTE | 2017-09-22 12:22 | CP.PCM.PN ---
Subjective - Date & Time of Evaluation Date of Evaluation: 09/22/17 Time of Evaluation: 11:15 - Subjective Subjective: Patient seen and examined. Complained of getting tired and fatigue because of "rough therapy" Objective - Vital Signs/Intake and Output Vital Signs (last 24 hours): Temp Pulse Resp BP Pulse Ox 97.3 F L 88 20 147/60 97 09/22/17 07:31 09/22/17 10:24 09/22/17 07:31 09/22/17 10:24 09/22/17 07:31 - Medications Medications: Current Medications Acetaminophen/Codeine Phosphate (Tylenol/Codeine 300 Mg/30 Mg) 1 tab PO Q6 PRN PRN Reason: Pain, severe (8-10) Last Admin: 09/22/17 08:57 Dose: 1 tab Albuterol Sulfate (Albuterol 0.083% Inhal Yaneli (2.5 Mg/3 Ml) Ud) 2.5 mg IH RQ6 [facility] Last Admin: 09/22/17 08:14 Dose: 2.5 mg Alprazolam (Xanax) 0.25 mg PO HS PRN PRN Reason: Anxiety Stop: 09/27/17 22:08 Amlodipine Besylate (Norvasc) 10 mg PO DAILY [facility] Last Admin: 09/22/17 10:24 Dose: 10 mg Aspirin (Ecotrin) 81 mg PO DAILY [facility] Last Admin: 09/22/17 08:58 Dose: 81 mg Atorvastatin Calcium (Lipitor) 20 mg PO HS [facility] Last Admin: 09/21/17 21:21 Dose: 20 mg Calcium Acetate (Phoslo) 667 mg PO TID@0800,1200,1700 [facility] Last Admin: 09/22/17 08:58 Dose: 667 mg Carvedilol (Coreg) 12.5 mg PO Q12 [facility] Last Admin: 09/22/17 10:24 Dose: 12.5 mg Clonidine HCl (Catapres) 0.1 mg PO Q12H [facility] Last Admin: 09/22/17 08:59 Dose: 0.1 mg Clopidogrel Bisulfate (Plavix) 75 mg PO DAILY [facility] Last Admin: 09/22/17 09:00 Dose: 75 mg Epoetin Tobin (Procrit) 20,000 unit IV TTS [facility] Gabapentin (Neurontin) 200 mg PO TID [facility] Last Admin: 09/22/17 09:00 Dose: 200 mg Heparin Sodium (Porcine) (Heparin) 5,000 units SC Q12 [facility] PRN Reason: Protocol Last Admin: 09/22/17 08:59 Dose: 5,000 units Labetalol HCl (Trandate) 300 mg PO Q8H PRN PRN Reason: HTN Lactulose (Enulose) 20 gm PO HS [facility] Last Admin: 09/21/17 21:58 Dose: 20 gm Levetiracetam (Keppra) 500 mg PO Q12 [facility] Last Admin: 09/22/17 08:59 Dose: 500 mg Levothyroxine Sodium (Synthroid) 75 mcg PO DAILY@0630 [facility] Last Admin: 09/22/17 05:43 Dose: 75 mcg Lisinopril (Zestril) 40 mg PO 1300 [facility] Last Admin: 09/21/17 13:00 Dose: Not Given Lorazepam (Ativan) 2 mg PO Q6 PRN PRN Reason: Anxiety Nifedipine (Procardia Xl) 30 mg PO DAILY [facility] Last Admin: 09/22/17 10:24 Dose: 30 mg Ondansetron HCl (Zofran Inj) 4 mg IVP Q6 PRN PRN Reason: Nausea/Vomiting Pantoprazole Sodium (Protonix Ec Tab) 40 mg PO DAILY [facility] Last Admin: 09/22/17 09:00 Dose: 40 mg Tramadol HCl (Ultram) 50 mg PO TID PRN PRN Reason: Pain, moderate (4-7) - Labs Labs: 09/20/17 05:25 09/20/17 05:25 PT 12.9 Seconds (9.8-13.1) 09/20/17 05:25 INR 1.2 09/20/17 05:25 APTT 29.2 Seconds (25.6-37.1) 09/20/17 05:25 - Constitutional Appears: No Acute Distress - Head Exam Head Exam: ATRAUMATIC - Eye Exam Eye Exam: absent: Scleral icterus - ENT Exam ENT Exam: Mucous Membranes Moist - Neck Exam Neck Exam: absent: Meningismus - Respiratory Exam Respiratory Exam: absent: Rales, Rhonchi, Wheezes, Respiratory Distress - Cardiovascular Exam Cardiovascular Exam: REGULAR RHYTHM, +S1, +S2 - GI/Abdominal Exam GI & Abdominal Exam: Soft. absent: Tenderness - Rectal Exam Rectal Exam: Deferred - Extremities Exam Extremities Exam: absent: Normal Inspection (right BKA: dressing intact but slightly soaked and needed dressing) - Back Exam Back Exam: NORMAL INSPECTION - Neurological Exam Neurological Exam: Alert, Oriented x3 - Psychiatric Exam Psychiatric exam: Normal Affect - Skin Skin Exam: Pallor Assessment and Plan - Assessment and Plan (Free Text) Assessment: 56 yo female with history of ESRD (on HD), DM2, HTN and PAD had right BKA at [facility] on 09/14/17 because of chronic non-healing wound on the right leg. She was transferred to [facility] and admitted in TCU for continued care and PT. 1. PAD Post Right BKA day # 8 daily dressing and wound care management 2. ESRD HD on TThS Dr Hirsch on renal consult 3. Anemia of Chronic Disease continue Procrit 20,000 units IV TThS 4. Anxiety on Ativan PRN 5. Hypothyroidism continue Levothyroxine 75 mcg PO daily TSH: 2.16 6. HTN BP stable continue Zestril/Coreg/Norvasc/Catapress 7. Seizure Keppra 500mg PO q 12hrs 8. CAD s/p coronary stent placement continue Coreg/ASA/Lipitor 9. DVT Prophylaxis Heparin 5000 units q 12hrs
--- NOTE | 2017-09-22 14:39 | CP.PCM.PN ---
Subjective - Date & Time of Evaluation Date of Evaluation: 09/22/17 Time of Evaluation: 13:00 - Subjective Subjective: no acute stump pain Objective - Vital Signs/Intake and Output Vital Signs (last 24 hours): Temp Pulse Resp BP Pulse Ox 97.3 F L 78 20 98/65 L 97 09/22/17 07:31 09/22/17 13:30 09/22/17 07:31 09/22/17 13:30 09/22/17 07:31 - Medications Medications: Current Medications Acetaminophen/Codeine Phosphate (Tylenol/Codeine 300 Mg/30 Mg) 1 tab PO Q6 PRN PRN Reason: Pain, severe (8-10) Last Admin: 09/22/17 08:57 Dose: 1 tab Albuterol Sulfate (Albuterol 0.083% Inhal Yaneli (2.5 Mg/3 Ml) Ud) 2.5 mg IH RQ6 [facility] Last Admin: 09/22/17 08:14 Dose: 2.5 mg Alprazolam (Xanax) 0.25 mg PO HS PRN PRN Reason: Anxiety Stop: 09/27/17 22:08 Amlodipine Besylate (Norvasc) 10 mg PO DAILY [facility] Last Admin: 09/22/17 10:24 Dose: 10 mg Aspirin (Ecotrin) 81 mg PO DAILY [facility] Last Admin: 09/22/17 08:58 Dose: 81 mg Atorvastatin Calcium (Lipitor) 20 mg PO HS [facility] Last Admin: 09/21/17 21:21 Dose: 20 mg Calcium Acetate (Phoslo) 667 mg PO TID@0800,1200,1700 [facility] Last Admin: 09/22/17 13:29 Dose: 667 mg Carvedilol (Coreg) 12.5 mg PO Q12 [facility] Last Admin: 09/22/17 10:24 Dose: 12.5 mg Clonidine HCl (Catapres) 0.1 mg PO Q12H [facility] Last Admin: 09/22/17 08:59 Dose: 0.1 mg Clopidogrel Bisulfate (Plavix) 75 mg PO DAILY [facility] Last Admin: 09/22/17 09:00 Dose: 75 mg Epoetin Tobin (Procrit) 20,000 unit IV TTS [facility] Gabapentin (Neurontin) 200 mg PO TID [facility] Last Admin: 09/22/17 13:29 Dose: 200 mg Heparin Sodium (Porcine) (Heparin) 5,000 units SC Q12 [facility] PRN Reason: Protocol Last Admin: 09/22/17 08:59 Dose: 5,000 units Labetalol HCl (Trandate) 300 mg PO Q8H PRN PRN Reason: HTN Lactulose (Enulose) 20 gm PO HS [facility] Last Admin: 09/21/17 21:58 Dose: 20 gm Levetiracetam (Keppra) 500 mg PO Q12 [facility] Last Admin: 09/22/17 08:59 Dose: 500 mg Levothyroxine Sodium (Synthroid) 75 mcg PO DAILY@0630 [facility] Last Admin: 09/22/17 05:43 Dose: 75 mcg Lisinopril (Zestril) 40 mg PO 1300 [facility] Last Admin: 09/22/17 13:30 Dose: Not Given Lorazepam (Ativan) 2 mg PO Q6 PRN PRN Reason: Anxiety Nifedipine (Procardia Xl) 30 mg PO DAILY [facility] Last Admin: 09/22/17 10:24 Dose: 30 mg Ondansetron HCl (Zofran Inj) 4 mg IVP Q6 PRN PRN Reason: Nausea/Vomiting Pantoprazole Sodium (Protonix Ec Tab) 40 mg PO DAILY [facility] Last Admin: 09/22/17 09:00 Dose: 40 mg Tramadol HCl (Ultram) 50 mg PO TID PRN PRN Reason: Pain, moderate (4-7) - Labs Labs: 09/20/17 05:25 09/20/17 05:25 PT 12.9 Seconds (9.8-13.1) 09/20/17 05:25 INR 1.2 09/20/17 05:25 APTT 29.2 Seconds (25.6-37.1) 09/20/17 05:25 - Head Exam Head Exam: ATRAUMATIC, NORMAL INSPECTION, NORMOCEPHALIC - Eye Exam Eye Exam: EOMI, Normal appearance, PERRL Pupil Exam: NORMAL ACCOMODATION - ENT Exam ENT Exam: Mucous Membranes Moist, Normal Exam - Neck Exam Neck Exam: Normal Inspection - Respiratory Exam Respiratory Exam: NORMAL BREATHING PATTERN - Cardiovascular Exam Cardiovascular Exam: REGULAR RHYTHM - GI/Abdominal Exam GI & Abdominal Exam: Soft, Normal Bowel Sounds - Rectal Exam Rectal Exam: NORMAL INSPECTION - Exam External exam: NORMAL EXTERNAL EXAM - Extremities Exam Extremities Exam: Full ROM, Normal Capillary Refill - Neurological Exam Neurological Exam: Alert, Awake Neuro motor strength exam: Right Lower Extremity: 3 - Psychiatric Exam Psychiatric exam: Normal Affect, Normal Mood - Skin Skin Exam: Normal Color Assessment and Plan (1) Amputation of right lower extremity below knee Assessment & Plan: plan for stump wraping, pt, Ot rec therapy Dc planning Status: Acute (2) Anemia of chronic disorder Status: Active (3) Deep venous thrombosis of lower extremity Status: Active (4) Knee pain Status: Active (5) Renal artery stenosis Status: Active (6) AV shunt thrombosis Status: Acute (7) Abdominal pain Status: Acute (8) Abdominal pain Status: Acute (9) Acute pulmonary edema Status: Acute
[2017-09-23] MEDS: Albuterol 0.083% Inhal Sol (2.5 mg/3 mL) UD IH SCH ×4 (01:15→19:09)
[2017-09-23] MEDS: Levothyroxine 75 MCG TAB PO SCH (06:05)
--- NOTE | 2017-09-23 06:31 | CP.PCM.PN ---
Subjective - Date & Time of Evaluation Date of Evaluation: 09/22/17 Time of Evaluation: 17:30 - Subjective Subjective: Per nursing staff, patient much more responsive today, but got tired after PT; Objective - Vital Signs/Intake and Output Vital Signs (last 24 hours): Temp Pulse Resp BP Pulse Ox 97.0 F L 89 20 111/65 99 09/22/17 19:45 09/22/17 21:19 09/22/17 19:45 09/22/17 21:19 09/22/17 19:45 - Medications Medications: Current Medications Acetaminophen/Codeine Phosphate (Tylenol/Codeine 300 Mg/30 Mg) 1 tab PO Q6 PRN PRN Reason: Pain, severe (8-10) Last Admin: 09/22/17 08:57 Dose: 1 tab Albuterol Sulfate (Albuterol 0.083% Inhal Yaneli (2.5 Mg/3 Ml) Ud) 2.5 mg IH RQ6 [facility] Last Admin: 09/23/17 01:15 Dose: 2.5 mg Alprazolam (Xanax) 0.25 mg PO HS PRN PRN Reason: Anxiety Stop: 09/27/17 22:08 Amlodipine Besylate (Norvasc) 10 mg PO DAILY [facility] Last Admin: 09/22/17 10:24 Dose: 10 mg Aspirin (Ecotrin) 81 mg PO DAILY [facility] Last Admin: 09/22/17 08:58 Dose: 81 mg Atorvastatin Calcium (Lipitor) 20 mg PO HS [facility] Last Admin: 09/22/17 21:20 Dose: 20 mg Calcitriol (Rocaltrol) 0.5 mcg PO DAILY [facility] Calcium Acetate (Phoslo) 667 mg PO TID@0800,1200,1700 [facility] Last Admin: 09/22/17 17:37 Dose: 667 mg Carvedilol (Coreg) 12.5 mg PO Q12 [facility] Last Admin: 09/22/17 21:18 Dose: 12.5 mg Clonidine HCl (Catapres) 0.1 mg PO Q12H [facility] Last Admin: 09/22/17 21:19 Dose: Not Given Clopidogrel Bisulfate (Plavix) 75 mg PO DAILY [facility] Last Admin: 09/22/17 09:00 Dose: 75 mg Epoetin Tobin (Procrit) 20,000 unit IV TTS [facility] Gabapentin (Neurontin) 200 mg PO TID [facility] Last Admin: 09/22/17 17:37 Dose: 200 mg Heparin Sodium (Porcine) (Heparin) 5,000 units SC Q12 [facility] PRN Reason: Protocol Last Admin: 09/22/17 21:20 Dose: 5,000 units Lactulose (Enulose) 20 gm PO HS [facility] Last Admin: 09/22/17 21:21 Dose: 20 gm Levetiracetam (Keppra) 500 mg PO Q12 [facility] Last Admin: 09/22/17 21:20 Dose: 500 mg Levothyroxine Sodium (Synthroid) 75 mcg PO DAILY@0630 [facility] Last Admin: 09/23/17 06:05 Dose: 75 mcg Lisinopril (Zestril) 40 mg PO 1300 [facility] Last Admin: 09/22/17 13:30 Dose: Not Given Lorazepam (Ativan) 2 mg PO Q6 PRN PRN Reason: Anxiety Nifedipine (Procardia Xl) 30 mg PO DAILY [facility] Last Admin: 09/22/17 10:24 Dose: 30 mg Ondansetron HCl (Zofran Inj) 4 mg IVP Q6 PRN PRN Reason: Nausea/Vomiting Pantoprazole Sodium (Protonix Ec Tab) 40 mg PO DAILY [facility] Last Admin: 09/22/17 09:00 Dose: 40 mg Tramadol HCl (Ultram) 50 mg PO TID PRN PRN Reason: Pain, moderate (4-7) - Labs Labs: 09/20/17 05:25 09/20/17 05:25 PT 12.9 Seconds (9.8-13.1) 09/20/17 05:25 INR 1.2 09/20/17 05:25 APTT 29.2 Seconds (25.6-37.1) 09/20/17 05:25 - Constitutional Appears: Non-toxic, No Acute Distress - Eye Exam Eye Exam: Normal appearance. absent: Scleral icterus - Respiratory Exam Respiratory Exam: absent: Respiratory Distress Additional comments: shallow breath sounds; - Cardiovascular Exam Cardiovascular Exam: RRR. absent: Gallop, Rubs - GI/Abdominal Exam GI & Abdominal Exam: Soft. absent: Distended, Tenderness - Extremities Exam Additional comments: no leg edema; - Neurological Exam Additional comments: somnolent - Skin Skin Exam: Warm. absent: Cyanosis Assessment and Plan (1) ESRD on hemodialysis Assessment & Plan: Stable volume and electrolyte status; continuing with HD on TTS schedule, next for tomorrow with UF goal 2L net; Status: Acute (2) Hypertensive CKD, ESRD on dialysis Assessment & Plan: BP lower than usual with several meds being held this evening; doses already decreased 2 days ago; will continue to make adjustments as needed; will try to taper off clonidine, decreasing to 0.1 mg once daily for a few days before stopping altogether; Status: Acute (3) Chronic kidney disease-mineral and bone disorder Assessment & Plan: PTH markedly elevated; starting calcitriol 0.5 mcg daily; continue phoslo 1 tab w/ meals; Status: Acute (4) Anemia in CKD (chronic kidney disease) Assessment & Plan: Hgb well below goal of 10-11 g; continue EPO 20,000 u on HD; ferritin too high to give IV iron; Status: Acute
[2017-09-23] MEDS: NIFEdipine 30 mg ER Tab PO SCH (08:26)
[2017-09-23] MEDS: Pantoprazole 40 mg EC Tab PO SCH (08:27)
[2017-09-23] MEDS: Epoetin Alfa 20000 UNIT/ML Inj IV SCH (17:30)
[2017-09-23 17:35] LABS: CALCIUM 9.4 mg/dL (8.4-10.2)
[2017-09-23] MEDS ORDERED: Flumazenil 0.1 mg/ml Inj (5ml) IVP ONE (17:47)
--- NOTE | 2017-09-23 18:12 | CP.PCM.PN ---
Subjective - Date & Time of Evaluation Date of Evaluation: 09/23/17 Time of Evaluation: 18:00 - Subjective Subjective: Patient referred as being unresponsive with jerky movement. Received 2mg of Ativan PO around 12pm because of agitation. Noted to be sedated by RN after 2 hrs. Dialysis started around 5PM with patient remained heavily sedated and trying to reach upward with both arms. Patient not responsive to verbal stimuli. Romazicon 0.2mg given IV. After a few minutes patient became more responsive and able to respond verbally with the son beside her. Son claimed she had same episode at [facility] [place] when receiving Ativan. Objective - Vital Signs/Intake and Output Vital Signs (last 24 hours): Temp Pulse Resp BP Pulse Ox 98.1 F 90 20 119/61 100 09/23/17 08:03 09/23/17 12:01 09/23/17 08:03 09/23/17 12:01 09/23/17 08:03 - Medications Medications: Current Medications Acetaminophen/Codeine Phosphate (Tylenol/Codeine 300 Mg/30 Mg) 1 tab PO Q6 PRN PRN Reason: Pain, severe (8-10) Last Admin: 09/22/17 08:57 Dose: 1 tab Albuterol Sulfate (Albuterol 0.083% Inhal Yaneli (2.5 Mg/3 Ml) Ud) 2.5 mg IH RQ6 [facility] Last Admin: 09/23/17 13:37 Dose: 2.5 mg Alprazolam (Xanax) 0.25 mg PO HS PRN PRN Reason: Anxiety Stop: 09/27/17 22:08 Amlodipine Besylate (Norvasc) 10 mg PO DAILY [facility] Last Admin: 09/23/17 08:25 Dose: 10 mg Aspirin (Ecotrin) 81 mg PO DAILY [facility] Last Admin: 09/23/17 08:19 Dose: 81 mg Atorvastatin Calcium (Lipitor) 20 mg PO HS [facility] Last Admin: 09/22/17 21:20 Dose: 20 mg Calcitriol (Rocaltrol) 0.5 mcg PO DAILY [facility] Last Admin: 09/23/17 08:19 Dose: 0.5 mcg Calcium Acetate (Phoslo) 667 mg PO TID@0800,1200,1700 [facility] Last Admin: 09/23/17 17:24 Dose: Not Given Carvedilol (Coreg) 12.5 mg PO Q12 [facility] Last Admin: 09/23/17 08:21 Dose: 12.5 mg Clonidine HCl (Catapres) 0.1 mg PO Q12H [facility] Last Admin: 09/23/17 08:19 Dose: 0.1 mg Clopidogrel Bisulfate (Plavix) 75 mg PO DAILY [facility] Last Admin: 09/23/17 08:26 Dose: 75 mg Epoetin Tobin (Procrit) 20,000 unit IV TTS [facility] Last Admin: 09/23/17 17:30 Dose: 20,000 unit Gabapentin (Neurontin) 200 mg PO TID [facility] Last Admin: 09/23/17 17:24 Dose: Not Given Heparin Sodium (Porcine) (Heparin) 5,000 units SC Q12 [facility] PRN Reason: Protocol Last Admin: 09/23/17 08:24 Dose: 5,000 units Lactulose (Enulose) 20 gm PO HS [facility] Last Admin: 09/22/17 21:21 Dose: 20 gm Levetiracetam (Keppra) 500 mg PO Q12 [facility] Last Admin: 09/23/17 08:24 Dose: 500 mg Levothyroxine Sodium (Synthroid) 75 mcg PO DAILY@0630 [facility] Last Admin: 09/23/17 06:05 Dose: 75 mcg Lisinopril (Zestril) 40 mg PO 1300 [facility] Last Admin: 09/23/17 12:01 Dose: Not Given Nifedipine (Procardia Xl) 30 mg PO DAILY [facility] Last Admin: 09/23/17 08:26 Dose: 30 mg Ondansetron HCl (Zofran Inj) 4 mg IVP Q6 PRN PRN Reason: Nausea/Vomiting Pantoprazole Sodium (Protonix Ec Tab) 40 mg PO DAILY [facility] Last Admin: 09/23/17 08:27 Dose: 40 mg Tramadol HCl (Ultram) 50 mg PO TID PRN PRN Reason: Pain, moderate (4-7) Last Admin: 09/23/17 09:55 Dose: 50 mg - Labs Labs: 09/20/17 05:25 09/23/17 17:10 PT 12.9 Seconds (9.8-13.1) 09/20/17 05:25 INR 1.2 09/20/17 05:25 APTT 29.2 Seconds (25.6-37.1) 09/20/17 05:25 Assessment and Plan - Assessment and Plan (Free Text) Plan: DC Ativan
[2017-09-24] MEDS: Albuterol 0.083% Inhal Sol (2.5 mg/3 mL) UD IH SCH ×5 (02:02→19:33)
[2017-09-24] MEDS: Levothyroxine 75 MCG TAB PO SCH (06:14)
[2017-09-24] MEDS: Pantoprazole 40 mg EC Tab PO SCH (09:39)
[2017-09-24 15:16] LABS: HEMOGLOBIN 9.4 g/dL (12.0-16.0); MEAN CELL VOLUME 91.9 fl (81.0-99.0); MEAN CORPUSCULAR HEMOGLOBIN 27.8 pg (27.0-31.0); MEAN CORPUSCULAR HGB CONC 30.2 g/dL (33.0-37.0); RBC 3.37 Mil/uL (3.80-5.20); RED CELL DISTRIBUTION WIDTH 18.5 % (11.5-14.5); WHITE BLOOD COUNT 17.4 K/uL (4.8-10.8)
[2017-09-24] MEDS: Acetaminophen-Codeine 300/30 mg Tab PO PRN (19:00)
--- NOTE | 2017-09-24 21:13 | CP.PCM.PN ---
Subjective - Date & Time of Evaluation Date of Evaluation: 09/24/17 Time of Evaluation: 16:00 - Subjective Subjective: Again reportedly hallucinating; not eating much (~25% of meal); patient denies any sob; constipated per nursing staff; Objective - Vital Signs/Intake and Output Vital Signs (last 24 hours): Temp Pulse Resp BP Pulse Ox 96.8 F L 89 20 147/61 100 09/24/17 19:57 09/24/17 19:57 09/24/17 19:57 09/24/17 19:57 09/24/17 19:57 - Medications Medications: Current Medications Acetaminophen/Codeine Phosphate (Tylenol/Codeine 300 Mg/30 Mg) 1 tab PO Q6 PRN PRN Reason: Pain, severe (8-10) Last Admin: 09/24/17 19:00 Dose: 1 tab Albuterol Sulfate (Albuterol 0.083% Inhal Yaneli (2.5 Mg/3 Ml) Ud) 2.5 mg IH RQ6 [facility] Last Admin: 09/24/17 19:33 Dose: 2.5 mg Amlodipine Besylate (Norvasc) 10 mg PO DAILY [facility] Last Admin: 09/24/17 09:38 Dose: 10 mg Aspirin (Ecotrin) 81 mg PO DAILY [facility] Last Admin: 09/24/17 09:38 Dose: 81 mg Atorvastatin Calcium (Lipitor) 20 mg PO HS [facility] Last Admin: 09/23/17 22:00 Dose: Not Given Calcitriol (Rocaltrol) 0.5 mcg PO DAILY [facility] Last Admin: 09/24/17 09:38 Dose: 0.5 mcg Calcium Acetate (Phoslo) 667 mg PO TID@0800,1200,1700 [facility] Last Admin: 09/24/17 16:47 Dose: 667 mg Carvedilol (Coreg) 12.5 mg PO Q12 [facility] Last Admin: 09/24/17 09:37 Dose: 12.5 mg Clonidine HCl (Catapres) 0.1 mg PO Q12H [facility] Last Admin: 09/24/17 09:37 Dose: 0.1 mg Clopidogrel Bisulfate (Plavix) 75 mg PO DAILY [facility] Last Admin: 09/24/17 09:36 Dose: 75 mg Epoetin Tobin (Procrit) 20,000 unit IV TTS [facility] Last Admin: 09/23/17 17:30 Dose: 20,000 unit Gabapentin (Neurontin) 200 mg PO TID [facility] Last Admin: 09/24/17 16:47 Dose: 200 mg Heparin Sodium (Porcine) (Heparin) 5,000 units SC Q12 [facility] PRN Reason: Protocol Last Admin: 09/24/17 09:39 Dose: 5,000 units Lactulose (Enulose) 20 gm PO HS [facility] Last Admin: 09/23/17 22:00 Dose: Not Given Levetiracetam (Keppra) 500 mg PO Q12 [facility] Last Admin: 09/24/17 09:36 Dose: 500 mg Levothyroxine Sodium (Synthroid) 75 mcg PO DAILY@0630 [facility] Last Admin: 09/24/17 06:14 Dose: Not Given Lisinopril (Zestril) 40 mg PO 1300 [facility] Last Admin: 09/24/17 14:03 Dose: Not Given Ondansetron HCl (Zofran Inj) 4 mg IVP Q6 PRN PRN Reason: Nausea/Vomiting Pantoprazole Sodium (Protonix Ec Tab) 40 mg PO DAILY [facility] Last Admin: 09/24/17 09:39 Dose: 40 mg Tramadol HCl (Ultram) 50 mg PO TID PRN PRN Reason: Pain, moderate (4-7) Last Admin: 09/24/17 17:58 Dose: 50 mg - Labs Labs: 09/24/17 15:11 09/23/17 17:10 PT 12.9 Seconds (9.8-13.1) 09/20/17 05:25 INR 1.2 09/20/17 05:25 APTT 29.2 Seconds (25.6-37.1) 09/20/17 05:25 - Constitutional Appears: Non-toxic, No Acute Distress - Eye Exam Eye Exam: Normal appearance - Respiratory Exam Respiratory Exam: Clear to Ausculation Bilateral. absent: Respiratory Distress - Cardiovascular Exam Cardiovascular Exam: RRR, +S1, +S2 - GI/Abdominal Exam GI & Abdominal Exam: Soft. absent: Distended, Tenderness - Extremities Exam Additional comments: no leg edema; - Neurological Exam Neurological Exam: Alert, Awake - Psychiatric Exam Psychiatric exam: Normal Mood. absent: Agitated - Skin Skin Exam: Warm. absent: Cyanosis Assessment and Plan (1) ESRD on hemodialysis Assessment & Plan: Stable volume and electrolyte status; continuing with HD on TTS schedule, aiming for low UF to avoid hypotension as patient with decreased PO intake; may also need to change to higher K bath to avoid hypokalemia; Status: Acute (2) Hypertensive CKD, ESRD on dialysis Assessment & Plan: BP controlled; but on decreasing anti-htn doses; holding lisinopril for now; monitor; Status: Acute (3) Chronic kidney disease-mineral and bone disorder Assessment & Plan: PTH elevated; continue calcitriol 0.5 mcg daily and phoslo with meals; Status: Acute (4) Anemia in CKD (chronic kidney disease) Assessment & Plan: Hgb stable, below goal; continue EPO on HD; Status: Acute (5) Leukocytosis Assessment & Plan: WBC count increasing; checking blood cultures; Status: Acute
[2017-09-25] MEDS: Albuterol 0.083% Inhal Sol (2.5 mg/3 mL) UD IH SCH ×4 (00:59→19:10)
[2017-09-25] MEDS: Levothyroxine 75 MCG TAB PO SCH (06:46)
--- NOTE | 2017-09-25 08:04 | CP.PCM.PN ---
Subjective - Date & Time of Evaluation Date of Evaluation: 09/25/17 Time of Evaluation: 08:02 - Subjective Subjective: General Surgery - Dr. Grajeda Pt S&E. YI. Pt complains of pain at the R BKA stump. Otherwise no complaints. She received dialysis Monday and will have it again tomorrow. Dressing changed at bedside. Objective - Vital Signs/Intake and Output Vital Signs (last 24 hours): Temp Pulse Resp BP Pulse Ox 96.8 F L 91 H 20 119/63 100 09/24/17 19:57 09/24/17 21:37 09/24/17 19:57 09/24/17 21:37 09/24/17 19:57 - Medications Medications: Current Medications Acetaminophen/Codeine Phosphate (Tylenol/Codeine 300 Mg/30 Mg) 1 tab PO Q6 PRN PRN Reason: Pain, severe (8-10) Last Admin: 09/24/17 19:00 Dose: 1 tab Albuterol Sulfate (Albuterol 0.083% Inhal Yaneli (2.5 Mg/3 Ml) Ud) 2.5 mg IH RQ6 [facility] Last Admin: 09/25/17 07:47 Dose: 2.5 mg Amlodipine Besylate (Norvasc) 10 mg PO DAILY [facility] Last Admin: 09/24/17 09:38 Dose: 10 mg Aspirin (Ecotrin) 81 mg PO DAILY [facility] Last Admin: 09/24/17 09:38 Dose: 81 mg Atorvastatin Calcium (Lipitor) 20 mg PO HS [facility] Last Admin: 09/24/17 22:03 Dose: 20 mg Calcitriol (Rocaltrol) 0.5 mcg PO DAILY [facility] Last Admin: 09/24/17 09:38 Dose: 0.5 mcg Calcium Acetate (Phoslo) 667 mg PO TID@0800,1200,1700 [facility] Last Admin: 09/24/17 16:47 Dose: 667 mg Carvedilol (Coreg) 12.5 mg PO Q12 [facility] Last Admin: 09/24/17 21:37 Dose: 12.5 mg Clonidine HCl (Catapres) 0.1 mg PO Q12H [facility] Last Admin: 09/24/17 21:37 Dose: Not Given Clopidogrel Bisulfate (Plavix) 75 mg PO DAILY [facility] Last Admin: 09/24/17 09:36 Dose: 75 mg Epoetin Tobin (Procrit) 20,000 unit IV TTS [facility] Last Admin: 09/23/17 17:30 Dose: 20,000 unit Gabapentin (Neurontin) 200 mg PO TID [facility] Last Admin: 09/24/17 16:47 Dose: 200 mg Heparin Sodium (Porcine) (Heparin) 5,000 units SC Q12 [facility] PRN Reason: Protocol Last Admin: 09/24/17 21:38 Dose: 5,000 units Lactulose (Enulose) 20 gm PO HS [facility] Last Admin: 09/24/17 22:03 Dose: 20 gm Levetiracetam (Keppra) 500 mg PO Q12 [facility] Last Admin: 09/24/17 21:38 Dose: 500 mg Levothyroxine Sodium (Synthroid) 75 mcg PO DAILY@0630 [facility] Last Admin: 09/25/17 06:46 Dose: 75 mcg Lisinopril (Zestril) 40 mg PO 1300 [facility] Last Admin: 09/24/17 14:03 Dose: Not Given Ondansetron HCl (Zofran Inj) 4 mg IVP Q6 PRN PRN Reason: Nausea/Vomiting Pantoprazole Sodium (Protonix Ec Tab) 40 mg PO DAILY [facility] Last Admin: 09/24/17 09:39 Dose: 40 mg Tramadol HCl (Ultram) 50 mg PO TID PRN PRN Reason: Pain, moderate (4-7) Last Admin: 09/25/17 07:15 Dose: 50 mg - Labs Labs: 09/24/17 15:11 09/23/17 17:10 PT 12.9 Seconds (9.8-13.1) 09/20/17 05:25 INR 1.2 09/20/17 05:25 APTT 29.2 Seconds (25.6-37.1) 09/20/17 05:25 - Constitutional Appears: No Acute Distress - Head Exam Head Exam: ATRAUMATIC, NORMAL INSPECTION, NORMOCEPHALIC - Eye Exam Eye Exam: Normal appearance - ENT Exam ENT Exam: Mucous Membranes Moist - Respiratory Exam Respiratory Exam: NORMAL BREATHING PATTERN. absent: Respiratory Distress - Cardiovascular Exam Cardiovascular Exam: REGULAR RHYTHM - Extremities Exam Additional comments: R BKA stump with necrotic superior portion, purulent drainage. cleansed with saline and clean dressing applied with kerlex and oje wrap - Neurological Exam Neurological Exam: Alert, Oriented x3 - Psychiatric Exam Psychiatric exam: Normal Affect, Normal Mood - Skin Skin Exam: Dry, Intact Assessment and Plan - Assessment and Plan (Free Text) Assessment: 56F s/p R BKA - IV Abx - Dressing changes daily - Keep leg elevated and offload pressure on wound - Pain control PRN - Will plan for AKA sometime this week - Will need medical clearance prior to OR DW DR Taras Canela PGY4
[2017-09-25] MEDS: Pantoprazole 40 mg EC Tab PO SCH (08:22)
--- NOTE | 2017-09-25 13:18 | CP.PCM.PN ---
Subjective - Date & Time of Evaluation Date of Evaluation: 09/25/17 Time of Evaluation: 11:45 - Subjective Subjective: Patient seen and examined. Appeared very sleepy. Complained of pain on the right amputated leg. Objective - Vital Signs/Intake and Output Vital Signs (last 24 hours): Temp Pulse Resp BP Pulse Ox 98.2 F 97 H 20 163/73 H 97 09/25/17 08:03 09/25/17 08:03 09/25/17 08:03 09/25/17 08:24 09/25/17 08:03 - Medications Medications: Current Medications Acetaminophen/Codeine Phosphate (Tylenol/Codeine 300 Mg/30 Mg) 1 tab PO Q6 PRN PRN Reason: Pain, severe (8-10) Last Admin: 09/24/17 19:00 Dose: 1 tab Albuterol Sulfate (Albuterol 0.083% Inhal Yaneli (2.5 Mg/3 Ml) Ud) 2.5 mg IH RQ6 [facility] Last Admin: 09/25/17 07:47 Dose: 2.5 mg Amlodipine Besylate (Norvasc) 10 mg PO DAILY [facility] Last Admin: 09/25/17 08:24 Dose: 10 mg Aspirin (Ecotrin) 81 mg PO DAILY [facility] Last Admin: 09/25/17 08:25 Dose: 81 mg Atorvastatin Calcium (Lipitor) 20 mg PO HS [facility] Last Admin: 09/24/17 22:03 Dose: 20 mg Calcitriol (Rocaltrol) 0.5 mcg PO DAILY [facility] Last Admin: 09/25/17 08:23 Dose: 0.5 mcg Calcium Acetate (Phoslo) 667 mg PO TID@0800,1200,1700 [facility] Last Admin: 09/25/17 12:46 Dose: 667 mg Carvedilol (Coreg) 12.5 mg PO Q12 [facility] Last Admin: 09/25/17 08:24 Dose: 12.5 mg Clonidine HCl (Catapres) 0.1 mg PO Q12H [facility] Last Admin: 09/25/17 08:23 Dose: 0.1 mg Clopidogrel Bisulfate (Plavix) 75 mg PO DAILY [facility] Last Admin: 09/25/17 08:22 Dose: 75 mg Epoetin Tobin (Procrit) 20,000 unit IV TTS [facility] Last Admin: 09/23/17 17:30 Dose: 20,000 unit Gabapentin (Neurontin) 200 mg PO TID [facility] Last Admin: 09/25/17 12:46 Dose: 200 mg Heparin Sodium (Porcine) (Heparin) 5,000 units SC Q12 [facility] PRN Reason: Protocol Last Admin: 09/25/17 08:24 Dose: 5,000 units Lactulose (Enulose) 20 gm PO HS [facility] Last Admin: 09/24/17 22:03 Dose: 20 gm Levetiracetam (Keppra) 500 mg PO Q12 [facility] Last Admin: 09/25/17 08:23 Dose: 500 mg Levothyroxine Sodium (Synthroid) 75 mcg PO DAILY@0630 [facility] Last Admin: 09/25/17 06:46 Dose: 75 mcg Lisinopril (Zestril) 40 mg PO 1300 [facility] Last Admin: 09/24/17 14:03 Dose: Not Given Ondansetron HCl (Zofran Inj) 4 mg IVP Q6 PRN PRN Reason: Nausea/Vomiting Pantoprazole Sodium (Protonix Ec Tab) 40 mg PO DAILY [facility] Last Admin: 09/25/17 08:22 Dose: 40 mg Tramadol HCl (Ultram) 50 mg PO TID PRN PRN Reason: Pain, moderate (4-7) Last Admin: 09/25/17 07:15 Dose: 50 mg - Labs Labs: 09/24/17 15:11 09/23/17 17:10 PT 12.9 Seconds (9.8-13.1) 09/20/17 05:25 INR 1.2 09/20/17 05:25 APTT 29.2 Seconds (25.6-37.1) 09/20/17 05:25 - Constitutional Appears: No Acute Distress - Head Exam Head Exam: ATRAUMATIC - Eye Exam Eye Exam: absent: Scleral icterus - ENT Exam ENT Exam: Mucous Membranes Moist - Neck Exam Neck Exam: absent: Meningismus - Respiratory Exam Respiratory Exam: absent: Rales, Rhonchi, Wheezes, Respiratory Distress - Cardiovascular Exam Cardiovascular Exam: REGULAR RHYTHM, +S1, +S2 - GI/Abdominal Exam GI & Abdominal Exam: Soft. absent: Tenderness - Rectal Exam Rectal Exam: Deferred - Extremities Exam Extremities Exam: absent: Normal Inspection (right BKA stump with intact and dry dressing) - Neurological Exam Neurological Exam: absent: Alert (lethargic but easily arousable and able to respond verbally) - Psychiatric Exam Psychiatric exam: Flat Affect - Skin Skin Exam: Dry, Intact Assessment and Plan - Assessment and Plan (Free Text) Assessment: 56 yo female with history of ESRD (on HD), DM2, HTN and PAD [place] [facility] [place] because of chronic non-healing wound on the right leg. She was transferred to [facility] and admitted in TCU for continued care and PT. 1. PAD Post Right BKA day # 11 daily dressing and wound care management continue pain management with Tylenol #3 2. ESRD HD on TThS Dr Hirsch on renal consult 3. Anemia of Chronic Disease continue Procrit 20,000 units IV TThS 4. Anxiety Ativan DC as it put patient on too much sedation causing AMS 5. Hypothyroidism continue Levothyroxine 75 mcg PO daily TSH: 2.16 6. HTN BP stable continue Zestril/Coreg/Norvasc/Catapress 7. Seizure Keppra 500mg PO q 12hrs 8. CAD s/p coronary stent placement continue Coreg/ASA/Lipitor 9. DVT Prophylaxis Heparin 5000 units q 12hrs
--- NOTE | 2017-09-25 22:38 | CP.PCM.PN ---
Subjective - Date & Time of Evaluation Date of Evaluation: 09/25/17 Time of Evaluation: 13:45 - Subjective Subjective: Reportedly eating ~25% of meals; no sob; still with intermittent pain on side of BKA; Objective - Vital Signs/Intake and Output Vital Signs (last 24 hours): Temp Pulse Resp BP Pulse Ox 97.5 F L 90 20 154/74 H 100 09/25/17 20:00 09/25/17 21:30 09/25/17 20:00 09/25/17 21:30 09/25/17 20:00 - Medications Medications: Current Medications Acetaminophen/Codeine Phosphate (Tylenol/Codeine 300 Mg/30 Mg) 1 tab PO Q6 PRN PRN Reason: Pain, severe (8-10) Last Admin: 09/24/17 19:00 Dose: 1 tab Albuterol Sulfate (Albuterol 0.083% Inhal Yaneli (2.5 Mg/3 Ml) Ud) 2.5 mg IH RQ6 [facility] Last Admin: 09/25/17 19:10 Dose: 2.5 mg Amlodipine Besylate (Norvasc) 10 mg PO DAILY [facility] Last Admin: 09/25/17 08:24 Dose: 10 mg Aspirin (Ecotrin) 81 mg PO DAILY [facility] Last Admin: 09/25/17 08:25 Dose: 81 mg Atorvastatin Calcium (Lipitor) 20 mg PO HS [facility] Last Admin: 09/25/17 21:32 Dose: 20 mg Calcitriol (Rocaltrol) 0.5 mcg PO DAILY [facility] Last Admin: 09/25/17 08:23 Dose: 0.5 mcg Calcium Acetate (Phoslo) 667 mg PO TID@0800,1200,1700 [facility] Last Admin: 09/25/17 17:07 Dose: 667 mg Carvedilol (Coreg) 12.5 mg PO Q12 [facility] Last Admin: 09/25/17 21:30 Dose: 12.5 mg Clonidine HCl (Catapres) 0.1 mg PO Q12H [facility] Last Admin: 09/25/17 21:30 Dose: 0.1 mg Clopidogrel Bisulfate (Plavix) 75 mg PO DAILY [facility] Last Admin: 09/25/17 08:22 Dose: 75 mg Epoetin Tobin (Procrit) 20,000 unit IV TTS [facility] Last Admin: 09/23/17 17:30 Dose: 20,000 unit Gabapentin (Neurontin) 200 mg PO Q8 [facility] Last Admin: 09/25/17 21:32 Dose: 200 mg Heparin Sodium (Porcine) (Heparin) 5,000 units SC Q12 [facility] PRN Reason: Protocol Last Admin: 09/25/17 21:31 Dose: 5,000 units Lactulose (Enulose) 20 gm PO HS [facility] Last Admin: 09/25/17 21:32 Dose: 20 gm Levetiracetam (Keppra) 500 mg PO Q12 [facility] Last Admin: 09/25/17 21:33 Dose: 500 mg Levothyroxine Sodium (Synthroid) 75 mcg PO DAILY@0630 [facility] Last Admin: 09/25/17 06:46 Dose: 75 mcg Lisinopril (Zestril) 40 mg PO 1300 [facility] Last Admin: 09/24/17 14:03 Dose: Not Given Ondansetron HCl (Zofran Inj) 4 mg IVP Q6 PRN PRN Reason: Nausea/Vomiting Pantoprazole Sodium (Protonix Ec Tab) 40 mg PO DAILY [facility] Last Admin: 09/25/17 08:22 Dose: 40 mg Tramadol HCl (Ultram) 50 mg PO TID PRN PRN Reason: Pain, moderate (4-7) Last Admin: 09/25/17 19:06 Dose: 50 mg - Labs Labs: 09/24/17 15:11 09/23/17 17:10 PT 12.9 Seconds (9.8-13.1) 09/20/17 05:25 INR 1.2 09/20/17 05:25 APTT 29.2 Seconds (25.6-37.1) 09/20/17 05:25 - Constitutional Appears: Non-toxic, No Acute Distress - Eye Exam Eye Exam: Normal appearance - ENT Exam ENT Exam: Mucous Membranes Moist - Respiratory Exam Respiratory Exam: Rales. absent: Rhonchi, Wheezes, Respiratory Distress - Cardiovascular Exam Cardiovascular Exam: RRR, +S1, +S2 - GI/Abdominal Exam GI & Abdominal Exam: Soft. absent: Distended, Tenderness - Extremities Exam Additional comments: no leg edema; - Neurological Exam Neurological Exam: Alert, Awake - Psychiatric Exam Psychiatric exam: absent: Agitated - Skin Skin Exam: Warm. absent: Cyanosis Assessment and Plan (1) ESRD on hemodialysis Assessment & Plan: Stable volume and electrolyte status; continuing with HD on TTS schedule, will aim for decreased UF goal (1.5L) in the setting of decreased PO intake; Status: Acute (2) Hypertensive CKD, ESRD on dialysis Assessment & Plan: BP fluctuating, high at times; already cut back several meds and holding lisinopril for now; continue clonidine, coreg and amlodipine; Status: Acute (3) Chronic kidney disease-mineral and bone disorder Status: Chronic (4) Anemia in CKD (chronic kidney disease) Assessment & Plan: Hgb stable, continue EPO on HD; Status: Acute (5) Leukocytosis Status: Acute
[2017-09-26] MEDS: Albuterol 0.083% Inhal Sol (2.5 mg/3 mL) UD IH SCH ×4 (00:59→19:03)
[2017-09-26] MEDS: Levothyroxine 75 MCG TAB PO SCH (06:03)
[2017-09-26] MEDS: Pantoprazole 40 mg EC Tab PO SCH (08:03)
--- NOTE | 2017-09-26 09:08 | CP.PCM.PN ---
Subjective - Date & Time of Evaluation Date of Evaluation: 09/26/17 Time of Evaluation: 07:30 - Subjective Subjective: General Surgery Dr. Grajeda Pt S&E @bedside. YI. pt c/o pain at stump, somewhat controlled w/ Tramadol. Denies F/C, N/V. tolerating diet. Objective - Vital Signs/Intake and Output Vital Signs (last 24 hours): Temp Pulse Resp BP Pulse Ox 97.1 F L 97 H 19 192/93 H 97 09/26/17 08:48 09/26/17 08:48 09/26/17 08:48 09/26/17 08:48 09/26/17 08:48 - Medications Medications: Current Medications Acetaminophen/Codeine Phosphate (Tylenol/Codeine 300 Mg/30 Mg) 1 tab PO Q6 PRN PRN Reason: Pain, severe (8-10) Last Admin: 09/24/17 19:00 Dose: 1 tab Albuterol Sulfate (Albuterol 0.083% Inhal Yaneli (2.5 Mg/3 Ml) Ud) 2.5 mg IH RQ6 [facility] Last Admin: 09/26/17 07:16 Dose: 2.5 mg Amlodipine Besylate (Norvasc) 10 mg PO DAILY [facility] Last Admin: 09/26/17 08:02 Dose: 10 mg Aspirin (Ecotrin) 81 mg PO DAILY [facility] Last Admin: 09/26/17 08:04 Dose: 81 mg Atorvastatin Calcium (Lipitor) 20 mg PO HS [facility] Last Admin: 09/25/17 21:32 Dose: 20 mg Calcitriol (Rocaltrol) 0.5 mcg PO DAILY [facility] Last Admin: 09/26/17 08:03 Dose: 0.5 mcg Calcium Acetate (Phoslo) 667 mg PO TID@0800,1200,1700 [facility] Last Admin: 09/26/17 08:02 Dose: 667 mg Carvedilol (Coreg) 12.5 mg PO Q12 [facility] Last Admin: 09/26/17 08:03 Dose: 12.5 mg Clonidine HCl (Catapres) 0.1 mg PO Q12H [facility] Last Admin: 09/26/17 08:04 Dose: 0.1 mg Clopidogrel Bisulfate (Plavix) 75 mg PO DAILY [facility] Last Admin: 09/26/17 08:03 Dose: 75 mg Epoetin Tobin (Procrit) 20,000 unit IV TTS [facility] Last Admin: 09/23/17 17:30 Dose: 20,000 unit Gabapentin (Neurontin) 200 mg PO Q8 [facility] Last Admin: 09/26/17 06:03 Dose: 200 mg Heparin Sodium (Porcine) (Heparin) 5,000 units SC Q12 [facility] PRN Reason: Protocol Last Admin: 09/26/17 08:03 Dose: 5,000 units Lactulose (Enulose) 20 gm PO HS [facility] Last Admin: 09/25/17 21:32 Dose: 20 gm Levetiracetam (Keppra) 500 mg PO Q12 [facility] Last Admin: 09/26/17 08:01 Dose: 500 mg Levothyroxine Sodium (Synthroid) 75 mcg PO DAILY@0630 [facility] Last Admin: 09/26/17 06:03 Dose: 75 mcg Lisinopril (Zestril) 40 mg PO 1300 [facility] Last Admin: 09/24/17 14:03 Dose: Not Given Ondansetron HCl (Zofran Inj) 4 mg IVP Q6 PRN PRN Reason: Nausea/Vomiting Pantoprazole Sodium (Protonix Ec Tab) 40 mg PO DAILY [facility] Last Admin: 09/26/17 08:03 Dose: 40 mg Tramadol HCl (Ultram) 50 mg PO TID PRN PRN Reason: Pain, moderate (4-7) Last Admin: 09/26/17 08:00 Dose: 50 mg - Labs Labs: 09/24/17 15:11 09/23/17 17:10 PT 12.9 Seconds (9.8-13.1) 09/20/17 05:25 INR 1.2 09/20/17 05:25 APTT 29.2 Seconds (25.6-37.1) 09/20/17 05:25 - Constitutional Appears: Non-toxic, No Acute Distress - Head Exam Head Exam: NORMAL INSPECTION - Eye Exam Eye Exam: Normal appearance - ENT Exam ENT Exam: Mucous Membranes Moist - Respiratory Exam Respiratory Exam: NORMAL BREATHING PATTERN. absent: Accessory Muscle Use, Respiratory Distress - Cardiovascular Exam Cardiovascular Exam: REGULAR RHYTHM. absent: Bradycardia, Tachycardia - GI/Abdominal Exam GI & Abdominal Exam: Soft. absent: Distended, Tenderness - Extremities Exam Extremities Exam: Normal Inspection Additional comments: Superior aspect R stump w/ skin and fat necrosis. TTP malodorous small opening in suture line @medial aspect - Neurological Exam Neurological Exam: Alert, Awake - Psychiatric Exam Psychiatric exam: Normal Affect, Normal Mood - Skin Skin Exam: Dry, Warm Assessment and Plan - Assessment and Plan (Free Text) Assessment: 56 y/o F s/p R BKA - IV Abx - Dressing changes daily - Keep leg elevated and offload pressure on wound - cont pain management - plan for AKA Monday - Will need medical clearance prior to OR Pt discussed w/ Dr. Taras Murguia DO PGY3
[2017-09-26] MEDS: Acetaminophen-Codeine 300/30 mg Tab PO PRN ×2 (11:18→19:46)
--- NOTE | 2017-09-26 11:53 | CP.PCM.PN ---
Subjective - Date & Time of Evaluation Date of Evaluation: 09/23/17 Time of Evaluation: 18:00 - Subjective Subjective: no acute stump pain Objective - Vital Signs/Intake and Output Vital Signs (last 24 hours): Temp Pulse Resp BP Pulse Ox 97.1 F L 94 H 19 139/66 97 09/26/17 08:48 09/26/17 09:17 09/26/17 08:48 09/26/17 09:17 09/26/17 08:48 - Medications Medications: Current Medications Acetaminophen/Codeine Phosphate (Tylenol/Codeine 300 Mg/30 Mg) 1 tab PO Q6 PRN PRN Reason: Pain, severe (8-10) Last Admin: 09/26/17 11:18 Dose: 1 tab Albuterol Sulfate (Albuterol 0.083% Inhal Yaneli (2.5 Mg/3 Ml) Ud) 2.5 mg IH RQ6 [facility] Last Admin: 09/26/17 07:16 Dose: 2.5 mg Amlodipine Besylate (Norvasc) 10 mg PO DAILY [facility] Last Admin: 09/26/17 08:02 Dose: 10 mg Aspirin (Ecotrin) 81 mg PO DAILY [facility] Last Admin: 09/26/17 08:04 Dose: 81 mg Atorvastatin Calcium (Lipitor) 20 mg PO HS [facility] Last Admin: 09/25/17 21:32 Dose: 20 mg Calcitriol (Rocaltrol) 0.5 mcg PO DAILY [facility] Last Admin: 09/26/17 08:03 Dose: 0.5 mcg Calcium Acetate (Phoslo) 667 mg PO TID@0800,1200,1700 [facility] Last Admin: 09/26/17 08:02 Dose: 667 mg Carvedilol (Coreg) 12.5 mg PO Q12 [facility] Last Admin: 09/26/17 08:03 Dose: 12.5 mg Clonidine HCl (Catapres) 0.1 mg PO Q12H [facility] Last Admin: 09/26/17 08:04 Dose: 0.1 mg Clopidogrel Bisulfate (Plavix) 75 mg PO DAILY [facility] Last Admin: 09/26/17 08:03 Dose: 75 mg Epoetin Tobin (Procrit) 20,000 unit IV TTS [facility] Last Admin: 09/23/17 17:30 Dose: 20,000 unit Gabapentin (Neurontin) 200 mg PO Q8 [facility] Last Admin: 09/26/17 06:03 Dose: 200 mg Heparin Sodium (Porcine) (Heparin) 5,000 units SC Q12 [facility] PRN Reason: Protocol Last Admin: 09/26/17 08:03 Dose: 5,000 units Lactulose (Enulose) 20 gm PO HS [facility] Last Admin: 09/25/17 21:32 Dose: 20 gm Levetiracetam (Keppra) 500 mg PO Q12 [facility] Last Admin: 09/26/17 08:01 Dose: 500 mg Levothyroxine Sodium (Synthroid) 75 mcg PO DAILY@0630 [facility] Last Admin: 09/26/17 06:03 Dose: 75 mcg Lisinopril (Zestril) 40 mg PO 1300 [facility] Last Admin: 09/24/17 14:03 Dose: Not Given Ondansetron HCl (Zofran Inj) 4 mg IVP Q6 PRN PRN Reason: Nausea/Vomiting Pantoprazole Sodium (Protonix Ec Tab) 40 mg PO DAILY [facility] Last Admin: 09/26/17 08:03 Dose: 40 mg Tramadol HCl (Ultram) 50 mg PO TID PRN PRN Reason: Pain, moderate (4-7) Last Admin: 09/26/17 08:00 Dose: 50 mg - Labs Labs: 09/24/17 15:11 09/23/17 17:10 PT 12.9 Seconds (9.8-13.1) 09/20/17 05:25 INR 1.2 09/20/17 05:25 APTT 29.2 Seconds (25.6-37.1) 09/20/17 05:25 - Head Exam Head Exam: ATRAUMATIC, NORMAL INSPECTION, NORMOCEPHALIC - Eye Exam Eye Exam: EOMI, Normal appearance Pupil Exam: NORMAL ACCOMODATION, PERRL - ENT Exam ENT Exam: Mucous Membranes Moist, Normal Exam - Neck Exam Neck Exam: Full ROM, Normal Inspection - Respiratory Exam Respiratory Exam: Clear to Ausculation Bilateral, NORMAL BREATHING PATTERN - Cardiovascular Exam Cardiovascular Exam: REGULAR RHYTHM - GI/Abdominal Exam GI & Abdominal Exam: Soft, Normal Bowel Sounds - Rectal Exam Rectal Exam: NORMAL INSPECTION - Exam External exam: NORMAL EXTERNAL EXAM Bimanual exam: NORMAL BIMANUAL EXAM - Extremities Exam Extremities Exam: Full ROM, Normal Capillary Refill, Normal Inspection - Back Exam Back Exam: NORMAL INSPECTION - Neurological Exam Neurological Exam: Alert, Awake Neuro motor strength exam: Left Upper Extremity: 3, Right Upper Extremity: 3, Left Lower Extremity: 3, Right Lower Extremity: 3 Additional comments: LEFT BKA - Psychiatric Exam Psychiatric exam: Normal Affect, Normal Mood - Skin Skin Exam: Dry, Normal Color, Warm Assessment and Plan (1) Amputation of right lower extremity below knee Assessment & Plan: plan for physical, occupational, res therapy for range of motion, strengthening , transfers and gait training Status: Acute (2) Anemia of chronic disorder Status: Active (3) Deep venous thrombosis of lower extremity Status: Active (4) Knee pain Status: Active (5) Renal artery stenosis Status: Active (6) AV shunt thrombosis Status: Acute (7) Abdominal pain Status: Acute (8) Abdominal pain Status: Acute (9) Acute pulmonary edema Status: Acute
--- NOTE | 2017-09-26 11:56 | CP.PCM.PN ---
Subjective - Date & Time of Evaluation Date of Evaluation: 09/25/17 Time of Evaluation: 15:00 - Subjective Subjective: no acute complaints at present Objective - Vital Signs/Intake and Output Vital Signs (last 24 hours): Temp Pulse Resp BP Pulse Ox 97.1 F L 94 H 19 139/66 97 09/26/17 08:48 09/26/17 09:17 09/26/17 08:48 09/26/17 09:17 09/26/17 08:48 - Medications Medications: Current Medications Acetaminophen/Codeine Phosphate (Tylenol/Codeine 300 Mg/30 Mg) 1 tab PO Q6 PRN PRN Reason: Pain, severe (8-10) Last Admin: 09/26/17 11:18 Dose: 1 tab Albuterol Sulfate (Albuterol 0.083% Inhal Yaneli (2.5 Mg/3 Ml) Ud) 2.5 mg IH RQ6 [facility] Last Admin: 09/26/17 07:16 Dose: 2.5 mg Amlodipine Besylate (Norvasc) 10 mg PO DAILY [facility] Last Admin: 09/26/17 08:02 Dose: 10 mg Aspirin (Ecotrin) 81 mg PO DAILY [facility] Last Admin: 09/26/17 08:04 Dose: 81 mg Atorvastatin Calcium (Lipitor) 20 mg PO HS [facility] Last Admin: 09/25/17 21:32 Dose: 20 mg Calcitriol (Rocaltrol) 0.5 mcg PO DAILY [facility] Last Admin: 09/26/17 08:03 Dose: 0.5 mcg Calcium Acetate (Phoslo) 667 mg PO TID@0800,1200,1700 [facility] Last Admin: 09/26/17 08:02 Dose: 667 mg Carvedilol (Coreg) 12.5 mg PO Q12 [facility] Last Admin: 09/26/17 08:03 Dose: 12.5 mg Clonidine HCl (Catapres) 0.1 mg PO Q12H [facility] Last Admin: 09/26/17 08:04 Dose: 0.1 mg Clopidogrel Bisulfate (Plavix) 75 mg PO DAILY [facility] Last Admin: 09/26/17 08:03 Dose: 75 mg Epoetin Tobin (Procrit) 20,000 unit IV TTS [facility] Last Admin: 09/23/17 17:30 Dose: 20,000 unit Gabapentin (Neurontin) 200 mg PO Q8 [facility] Last Admin: 09/26/17 06:03 Dose: 200 mg Heparin Sodium (Porcine) (Heparin) 5,000 units SC Q12 [facility] PRN Reason: Protocol Last Admin: 09/26/17 08:03 Dose: 5,000 units Lactulose (Enulose) 20 gm PO HS [facility] Last Admin: 09/25/17 21:32 Dose: 20 gm Levetiracetam (Keppra) 500 mg PO Q12 [facility] Last Admin: 09/26/17 08:01 Dose: 500 mg Levothyroxine Sodium (Synthroid) 75 mcg PO DAILY@0630 [facility] Last Admin: 09/26/17 06:03 Dose: 75 mcg Lisinopril (Zestril) 40 mg PO 1300 [facility] Last Admin: 09/24/17 14:03 Dose: Not Given Ondansetron HCl (Zofran Inj) 4 mg IVP Q6 PRN PRN Reason: Nausea/Vomiting Pantoprazole Sodium (Protonix Ec Tab) 40 mg PO DAILY [facility] Last Admin: 09/26/17 08:03 Dose: 40 mg Tramadol HCl (Ultram) 50 mg PO TID PRN PRN Reason: Pain, moderate (4-7) Last Admin: 09/26/17 08:00 Dose: 50 mg - Labs Labs: 09/24/17 15:11 09/23/17 17:10 PT 12.9 Seconds (9.8-13.1) 09/20/17 05:25 INR 1.2 09/20/17 05:25 APTT 29.2 Seconds (25.6-37.1) 09/20/17 05:25 - Head Exam Head Exam: ATRAUMATIC, NORMAL INSPECTION, NORMOCEPHALIC - Eye Exam Eye Exam: EOMI, Normal appearance Pupil Exam: NORMAL ACCOMODATION, PERRL - ENT Exam ENT Exam: Mucous Membranes Moist, Normal Exam - Neck Exam Neck Exam: Full ROM, Normal Inspection - Respiratory Exam Respiratory Exam: Clear to Ausculation Bilateral, NORMAL BREATHING PATTERN - Cardiovascular Exam Cardiovascular Exam: REGULAR RHYTHM - GI/Abdominal Exam GI & Abdominal Exam: Soft, Normal Bowel Sounds - Rectal Exam Rectal Exam: NORMAL INSPECTION - Exam External exam: NORMAL EXTERNAL EXAM Speculum exam: NORMAL SPECULUM EXAM - Extremities Exam Extremities Exam: Full ROM, Normal Capillary Refill, Normal Inspection - Back Exam Back Exam: NORMAL INSPECTION - Neurological Exam Neurological Exam: Alert, Awake Neuro motor strength exam: Left Upper Extremity: 3, Right Upper Extremity: 3, Left Lower Extremity: 3, Right Lower Extremity: 3 Additional comments: left stump - Psychiatric Exam Psychiatric exam: Normal Affect, Normal Mood - Skin Skin Exam: Dry, Normal Color, Warm Assessment and Plan (1) Amputation of right lower extremity below knee Assessment & Plan: stump shaping, wraping, range of motion, strengthening, transfers and gait training Status: Acute (2) Anemia of chronic disorder Status: Active (3) Deep venous thrombosis of lower extremity Status: Active (4) Knee pain Status: Active (5) Renal artery stenosis Status: Active (6) AV shunt thrombosis Status: Acute (7) Abdominal pain Status: Acute (8) Abdominal pain Status: Acute (9) Acute pulmonary edema Status: Acute
[2017-09-26] MEDS: Epoetin Alfa 20000 UNIT/ML Inj IV SCH (17:17)
--- NOTE | 2017-09-26 18:30 | CARD ---
APPROVED REPORT Date of service: 09/26/2017 EKG Measurement Heart [id number] <Conclusion> Normal sinus rhythm Left ventricular hypertrophy with repolarization abnormality Abnormal ECG
--- NOTE | 2017-09-26 20:08 | CP.PCM.PN ---
Subjective - Date & Time of Evaluation Date of Evaluation: 09/26/17 Time of Evaluation: 19:45 - Subjective Subjective: Patient more alert today; still with decreased PO intake; R leg pain variable; breathing ok; tolerated UF on HD; Objective - Vital Signs/Intake and Output Vital Signs (last 24 hours): Temp Pulse Resp BP Pulse Ox 97.1 F L 94 H 19 139/66 99 09/26/17 08:48 09/26/17 09:17 09/26/17 08:48 09/26/17 09:17 09/26/17 08:56 - Medications Medications: Current Medications Acetaminophen/Codeine Phosphate (Tylenol/Codeine 300 Mg/30 Mg) 1 tab PO Q6 PRN PRN Reason: Pain, severe (8-10) Last Admin: 09/26/17 19:46 Dose: 1 tab Albuterol Sulfate (Albuterol 0.083% Inhal Yaneli (2.5 Mg/3 Ml) Ud) 2.5 mg IH RQ6 [facility] Last Admin: 09/26/17 19:03 Dose: 2.5 mg Amlodipine Besylate (Norvasc) 10 mg PO DAILY [facility] Last Admin: 09/26/17 08:02 Dose: 10 mg Aspirin (Ecotrin) 81 mg PO DAILY [facility] Last Admin: 09/26/17 08:04 Dose: 81 mg Atorvastatin Calcium (Lipitor) 20 mg PO HS [facility] Last Admin: 09/25/17 21:32 Dose: 20 mg Calcitriol (Rocaltrol) 0.5 mcg PO DAILY [facility] Last Admin: 09/26/17 08:03 Dose: 0.5 mcg Calcium Acetate (Phoslo) 667 mg PO TID@0800,1200,1700 [facility] Last Admin: 09/26/17 17:17 Dose: 667 mg Carvedilol (Coreg) 12.5 mg PO Q12 [facility] Last Admin: 09/26/17 08:03 Dose: 12.5 mg Clonidine HCl (Catapres) 0.1 mg PO Q12H [facility] Last Admin: 09/26/17 08:04 Dose: 0.1 mg Clopidogrel Bisulfate (Plavix) 75 mg PO DAILY [facility] Last Admin: 09/26/17 08:03 Dose: 75 mg Epoetin Tobin (Procrit) 20,000 unit IV TTS [facility] Last Admin: 09/26/17 17:17 Dose: 20,000 unit Gabapentin (Neurontin) 200 mg PO Q8 [facility] Last Admin: 09/26/17 13:15 Dose: 200 mg Heparin Sodium (Porcine) (Heparin) 5,000 units SC Q12 [facility] PRN Reason: Protocol Last Admin: 09/26/17 08:03 Dose: 5,000 units Lactulose (Enulose) 20 gm PO HS [facility] Last Admin: 09/25/17 21:32 Dose: 20 gm Levetiracetam (Keppra) 500 mg PO Q12 [facility] Last Admin: 09/26/17 08:01 Dose: 500 mg Levothyroxine Sodium (Synthroid) 75 mcg PO DAILY@0630 [facility] Last Admin: 09/26/17 06:03 Dose: 75 mcg Lisinopril (Zestril) 40 mg PO 1300 [facility] Last Admin: 09/24/17 14:03 Dose: Not Given Ondansetron HCl (Zofran Inj) 4 mg IVP Q6 PRN PRN Reason: Nausea/Vomiting Pantoprazole Sodium (Protonix Ec Tab) 40 mg PO DAILY [facility] Last Admin: 09/26/17 08:03 Dose: 40 mg Tramadol HCl (Ultram) 50 mg PO TID PRN PRN Reason: Pain, moderate (4-7) Last Admin: 09/26/17 08:00 Dose: 50 mg - Labs Labs: 09/24/17 15:11 09/23/17 17:10 PT 12.9 Seconds (9.8-13.1) 09/20/17 05:25 INR 1.2 09/20/17 05:25 APTT 29.2 Seconds (25.6-37.1) 09/20/17 05:25 - Constitutional Appears: Non-toxic, No Acute Distress - Eye Exam Eye Exam: Normal appearance - ENT Exam ENT Exam: Mucous Membranes Moist - Respiratory Exam Respiratory Exam: Clear to Ausculation Bilateral. absent: Respiratory Distress - Cardiovascular Exam Cardiovascular Exam: RRR. absent: Gallop, Rubs - GI/Abdominal Exam GI & Abdominal Exam: Soft. absent: Distended, Tenderness - Extremities Exam Additional comments: no leg edema; - Neurological Exam Neurological Exam: Alert, Awake Additional comments: answering questions appropriately; - Psychiatric Exam Psychiatric exam: Normal Mood. absent: Agitated - Skin Skin Exam: Warm. absent: Cyanosis Assessment and Plan (1) ESRD on hemodialysis Assessment & Plan: STable volume and electrolyte status; continuing with HD on TTS schedule; low UF goal for now (1.7L today); Status: Chronic (2) Hypertensive CKD, ESRD on dialysis Assessment & Plan: BP elevated at times likely due to pain, otherwise controlled on current meds; continue to hold lisinopril; Status: Acute (3) Chronic kidney disease-mineral and bone disorder Status: Chronic (4) Anemia in CKD (chronic kidney disease) Status: Acute (5) Leukocytosis Assessment & Plan: Plan for R AKA for Monday noted; will ensure volume/electrolytes controlled prior to procedure; dose abx for ESRD; Status: Acute
--- NOTE | 2017-09-26 21:57 | CP.PCM.PCO ---
Physician Communication Note - Physician Communication Note Physician Communication Note: Wound culture +ve for Enterobacter. Zosyn 2.25gm IVPB started Q12H
[2017-09-27] MEDS: Albuterol 0.083% Inhal Sol (2.5 mg/3 mL) UD IH SCH ×4 (01:09→20:28)
[2017-09-27 07:01] LABS: HEMOGLOBIN 8.7 g/dL (12.0-16.0); MEAN CELL VOLUME 91.7 fl (81.0-99.0); MEAN CORPUSCULAR HGB CONC 29.4 g/dL (33.0-37.0); RBC 3.22 Mil/uL (3.80-5.20); RED CELL DISTRIBUTION WIDTH 19.3 % (11.5-14.5); WHITE BLOOD COUNT 17.3 K/uL (4.8-10.8)
[2017-09-27] MEDS: Levothyroxine 75 MCG TAB PO SCH (07:06)
[2017-09-27 07:08] LABS: INR 1.2; PROTHROMBIN TIME 13.1 Seconds (9.8-13.1)
[2017-09-27 07:17] LABS: ALB/GLOB RATIO 1.2 (1.0-2.1); ALBUMIN 3.3 g/dL (3.5-5.0); CALCIUM 9.7 mg/dL (8.4-10.2)
[2017-09-27] MEDS: Pantoprazole 40 mg EC Tab PO SCH (08:24)
--- NOTE | 2017-09-27 11:05 | CP.PCM.PN ---
Subjective - Date & Time of Evaluation Date of Evaluation: 09/27/17 Time of Evaluation: 11:02 - Subjective Subjective: DOING WELL IVRX STARTED YESTERDAY HD STABLE NAD Objective - Vital Signs/Intake and Output Vital Signs (last 24 hours): Temp Pulse Resp BP Pulse Ox 97.1 F L 93 H 18 132/73 100 09/27/17 08:46 09/27/17 08:46 09/27/17 08:46 09/27/17 08:46 09/27/17 08:46 - Medications Medications: Current Medications Acetaminophen/Codeine Phosphate (Tylenol/Codeine 300 Mg/30 Mg) 1 tab PO Q6 PRN PRN Reason: Pain, severe (8-10) Last Admin: 09/26/17 19:46 Dose: 1 tab Albuterol Sulfate (Albuterol 0.083% Inhal Yaneli (2.5 Mg/3 Ml) Ud) 2.5 mg IH RQ6 [facility] Last Admin: 09/27/17 08:08 Dose: 2.5 mg Amlodipine Besylate (Norvasc) 10 mg PO DAILY [facility] Last Admin: 09/27/17 08:21 Dose: 10 mg Aspirin (Ecotrin) 81 mg PO DAILY [facility] Last Admin: 09/26/17 08:04 Dose: 81 mg Atorvastatin Calcium (Lipitor) 20 mg PO HS [facility] Last Admin: 09/26/17 22:28 Dose: 20 mg Calcitriol (Rocaltrol) 0.5 mcg PO DAILY [facility] Last Admin: 09/27/17 08:22 Dose: 0.5 mcg Calcium Acetate (Phoslo) 667 mg PO TID@0800,1200,1700 [facility] Last Admin: 09/27/17 08:21 Dose: 667 mg Carvedilol (Coreg) 12.5 mg PO Q12 [facility] Last Admin: 09/27/17 08:20 Dose: 12.5 mg Clonidine HCl (Catapres) 0.1 mg PO Q12H [facility] Last Admin: 09/27/17 08:21 Dose: 0.1 mg Clopidogrel Bisulfate (Plavix) 75 mg PO DAILY [facility] Last Admin: 09/26/17 08:03 Dose: 75 mg Epoetin Tobin (Procrit) 20,000 unit IV TTS [facility] Last Admin: 09/26/17 17:17 Dose: 20,000 unit Gabapentin (Neurontin) 200 mg PO Q8 [facility] Last Admin: 09/27/17 07:07 Dose: 200 mg Heparin Sodium (Porcine) (Heparin) 5,000 units SC Q12 [facility] PRN Reason: Protocol Last Admin: 09/27/17 08:22 Dose: 5,000 units Piperacillin Sod/Tazobactam (Sod 2.25 gm/ Sodium Chloride) 100 mls @ 100 mls/ hr IVPB 0600,1800 [facility] PRN Reason: Protocol Lactulose (Enulose) 20 gm PO HS [facility] Last Admin: 09/26/17 22:31 Dose: 20 gm Levetiracetam (Keppra) 500 mg PO Q12 [facility] Last Admin: 09/27/17 08:22 Dose: 500 mg Levothyroxine Sodium (Synthroid) 75 mcg PO DAILY@0630 [facility] Last Admin: 09/27/17 07:06 Dose: 75 mcg Lisinopril (Zestril) 40 mg PO 1300 [facility] Last Admin: 09/24/17 14:03 Dose: Not Given Ondansetron HCl (Zofran Inj) 4 mg IVP Q6 PRN PRN Reason: Nausea/Vomiting Pantoprazole Sodium (Protonix Ec Tab) 40 mg PO DAILY [facility] Last Admin: 09/27/17 08:24 Dose: 40 mg Tramadol HCl (Ultram) 50 mg PO TID PRN PRN Reason: Pain, moderate (4-7) Last Admin: 09/26/17 08:00 Dose: 50 mg - Labs Labs: 09/27/17 06:46 09/27/17 06:46 PT 13.1 Seconds (9.8-13.1) 09/27/17 06:46 INR 1.2 09/27/17 06:46 APTT 21.0 Seconds (25.6-37.1) L 09/27/17 06:46 - Constitutional Appears: Non-toxic, No Acute Distress - Head Exam Head Exam: ATRAUMATIC, NORMOCEPHALIC - Eye Exam Eye Exam: EOMI, Normal appearance Pupil Exam: NORMAL ACCOMODATION, PERRL - ENT Exam ENT Exam: Mucous Membranes Moist, Normal Exam - Neck Exam Neck Exam: Full ROM - Respiratory Exam Respiratory Exam: Clear to Ausculation Bilateral, NORMAL BREATHING PATTERN - Cardiovascular Exam Cardiovascular Exam: RRR, +S1, +S2 - GI/Abdominal Exam GI & Abdominal Exam: Soft, Normal Bowel Sounds - Extremities Exam Extremities Exam: Normal Capillary Refill, Normal Inspection - Back Exam Back Exam: NORMAL INSPECTION. absent: paraspinal tenderness - Neurological Exam Neurological Exam: Alert, Awake - Psychiatric Exam Psychiatric exam: Normal Affect, Normal Mood - Skin Skin Exam: Dry, Normal Color Assessment and Plan - Assessment and Plan (Free Text) Plan: 6 yo female with history of ESRD (on HD), DM2, HTN and PAD [place] [facility] [place] because of chronic non-healing wound on the right leg. She was transferred to [facility] and admitted in TCU for continued care and PT. 1. PAD Post Right BKA day ZOSYN started for positive wound cx AKA for Monday daily dressing and wound care management continue pain management with Tylenol #3 2. ESRD HD on TThS Dr Hirsch on renal consult 3. Anemia of Chronic Disease continue Procrit 20,000 units IV TThS 4. Anxiety Ativan DC as it put patient on too much sedation causing AMS 5. Hypothyroidism continue Levothyroxine 75 mcg PO daily TSH: 2.16 6. HTN BP stable continue Zestril/Coreg/Norvasc/Catapress 7. Seizure Keppra 500mg PO q 12hrs 8. CAD s/p coronary stent placement continue Coreg/ASA/Lipitor 9. DVT Prophylaxis Heparin 5000 units q 12hrs
--- NOTE | 2017-09-27 11:18 | CP.PCM.PN ---
Subjective - Date & Time of Evaluation Date of Evaluation: 09/27/17 Time of Evaluation: 11:17 - Subjective Subjective: General surgery progress note for Dr. Eduardo Harper, PGY-2 Pt S & E at bedside at 1030 Pt reports continued RLE pain over BKA amputation site. Sitting up in wheelchair for PT. Reports wound dressing was changed. Denies other complaints at this time. Understands she is for surgery Monday. Objective - Vital Signs/Intake and Output Vital Signs (last 24 hours): Temp Pulse Resp BP Pulse Ox 97.1 F L 93 H 18 132/73 100 09/27/17 08:46 09/27/17 08:46 09/27/17 08:46 09/27/17 08:46 09/27/17 08:46 - Medications Medications: Current Medications Acetaminophen/Codeine Phosphate (Tylenol/Codeine 300 Mg/30 Mg) 1 tab PO Q6 PRN PRN Reason: Pain, severe (8-10) Last Admin: 09/26/17 19:46 Dose: 1 tab Albuterol Sulfate (Albuterol 0.083% Inhal Yaneli (2.5 Mg/3 Ml) Ud) 2.5 mg IH RQ6 [facility] Last Admin: 09/27/17 08:08 Dose: 2.5 mg Amlodipine Besylate (Norvasc) 10 mg PO DAILY [facility] Last Admin: 09/27/17 08:21 Dose: 10 mg Aspirin (Ecotrin) 81 mg PO DAILY [facility] Last Admin: 09/26/17 08:04 Dose: 81 mg Atorvastatin Calcium (Lipitor) 20 mg PO HS [facility] Last Admin: 09/26/17 22:28 Dose: 20 mg Calcitriol (Rocaltrol) 0.5 mcg PO DAILY [facility] Last Admin: 09/27/17 08:22 Dose: 0.5 mcg Calcium Acetate (Phoslo) 667 mg PO TID@0800,1200,1700 [facility] Last Admin: 09/27/17 08:21 Dose: 667 mg Carvedilol (Coreg) 12.5 mg PO Q12 [facility] Last Admin: 09/27/17 08:20 Dose: 12.5 mg Clonidine HCl (Catapres) 0.1 mg PO Q12H [facility] Last Admin: 09/27/17 08:21 Dose: 0.1 mg Clopidogrel Bisulfate (Plavix) 75 mg PO DAILY [facility] Last Admin: 09/26/17 08:03 Dose: 75 mg Epoetin Tobin (Procrit) 20,000 unit IV TTS [facility] Last Admin: 09/26/17 17:17 Dose: 20,000 unit Gabapentin (Neurontin) 200 mg PO Q8 [facility] Last Admin: 09/27/17 07:07 Dose: 200 mg Heparin Sodium (Porcine) (Heparin) 5,000 units SC Q12 [facility] PRN Reason: Protocol Last Admin: 09/27/17 08:22 Dose: 5,000 units Piperacillin Sod/Tazobactam (Sod 2.25 gm/ Sodium Chloride) 100 mls @ 100 mls/ hr IVPB 0600,1800 [facility] PRN Reason: Protocol Lactulose (Enulose) 20 gm PO HS [facility] Last Admin: 09/26/17 22:31 Dose: 20 gm Levetiracetam (Keppra) 500 mg PO Q12 [facility] Last Admin: 09/27/17 08:22 Dose: 500 mg Levothyroxine Sodium (Synthroid) 75 mcg PO DAILY@0630 [facility] Last Admin: 09/27/17 07:06 Dose: 75 mcg Lisinopril (Zestril) 40 mg PO 1300 [facility] Last Admin: 09/24/17 14:03 Dose: Not Given Ondansetron HCl (Zofran Inj) 4 mg IVP Q6 PRN PRN Reason: Nausea/Vomiting Pantoprazole Sodium (Protonix Ec Tab) 40 mg PO DAILY [facility] Last Admin: 09/27/17 08:24 Dose: 40 mg Tramadol HCl (Ultram) 50 mg PO TID PRN PRN Reason: Pain, moderate (4-7) Last Admin: 09/26/17 08:00 Dose: 50 mg - Labs Labs: 09/27/17 06:46 09/27/17 06:46 PT 13.1 Seconds (9.8-13.1) 09/27/17 06:46 INR 1.2 09/27/17 06:46 APTT 21.0 Seconds (25.6-37.1) L 09/27/17 06:46 - Constitutional Appears: Non-toxic, No Acute Distress - Head Exam Head Exam: ATRAUMATIC, NORMAL INSPECTION, NORMOCEPHALIC - Eye Exam Eye Exam: EOMI, Normal appearance - ENT Exam ENT Exam: Mucous Membranes Moist, Normal Exam - Neck Exam Neck Exam: Full ROM, Normal Inspection - Respiratory Exam Respiratory Exam: NORMAL BREATHING PATTERN - Cardiovascular Exam Cardiovascular Exam: REGULAR RHYTHM, +S1, +S2 - GI/Abdominal Exam GI & Abdominal Exam: Soft. absent: Tenderness - Extremities Exam Extremities Exam: absent: Normal Inspection (Right lower extremity with dressing in place- clean/dry/intact) - Neurological Exam Neurological Exam: Alert, Awake, CN II-XII Intact, Oriented x3 - Psychiatric Exam Psychiatric exam: Normal Affect, Normal Mood - Skin Skin Exam: Dry, Warm Assessment and Plan - Assessment and Plan (Free Text) Assessment: 56F S/p R BKA with ischemic necrosis Plan: IV Abx Pain control PRN Daily dressing changes Keep leg elevated, offload pressure on wound Plan for AKA Monday Consent in chart Medical clearance prior to OR Further mgmt as per primary team Will DW Dr. Taras Harper, PGY-2
--- NOTE | 2017-09-27 12:23 | PSY.TMCNF ---
Nursing - Vital Signs Vital Signs (Last 8 hours): Vital Signs 09/27/17 09/27/17 09/27/17 08:20 08:21 08:46 Temperature 97.1 F L Pulse Rate 93 H 93 H Respiratory 18 Rate Blood Pressure 132/73 132/73 132/73 O2 Sat by Pulse 100 Oximetry Pain: 0 - Precautions: Precautions: Fall Prevention - Medications/Other Issues Comment: Pt at high nutritional risk. goals: 1. Pt to consume 75-100% of meals (met, continue). 2. K+ WNL(met, continue). Follow-up due on 09/30/2017 - Consults Comment: DR. ATM-DIANELYS, DR. HAZEL, DR. SONG - Skin Incision Site: Right BKA stump Drainage: Sanguineous Dressing Status: Clean, Dry, Intact Incision: Reddened, Open, Necrotic, Draining Incision Line Treatment: Cleanse with NS and apply dsg, kerlix, and jeo wrap - Toileting Toileting: Dependent - Bladder Management Bladder Pattern: Normal - Bowel Management Bowel Pattern: Normal Bowel Management: Moderate Assistance Frequency of Accidents: 0 - Transfers Transfers: Minimal Assistance - ADL's ADL's: Moderate Assistance - Pain Management Comments: MS CONTIN, DILAUDID IV, ULTRAM, NEURONTIN - Patient/Family Teaching Comments: CARE POST BKA AND SAFETY PRECAUTIONS - Goals/Time Frame Comments: Attempted to meet with pt prior session, pt presented with lethargy and was not responding to questions. Pt was seen awake sitting up in bed following day. PT present at bedside measuring and wrapping pt's residual limb. Present at bedside providing distraction and diversion from pain and discomfort. Pt reported that she enjoys reading mystery novels particularly, listening to latin music particularly Dovetail, and watching television. Pt was not ambulating at home or in community. Pt was w/c bound. Pt unable to recall name or city of hospital. Pt presented with + hallcuinations reporting that her daughter and grandchildren were present in the room. Pt required verbal cues for reorientation to place and current situation. - Provider Provider: CORRINA LEONN RN CRRN Physical Therapy - Bed Mobility Bed Mobility: Moderate Assistance - Transfers Wheelchair to Mat: Moderate Assistance Sit to Stand: Verbal Cues, Minimal Assistance - Ambulation Level of Assistance: Verbal Cues, Moderate Assistance Distance (ft.): 8 Comment: Parallel bars - Stair Negotiation Stairs: Level of Assistance: Dependent - Standing Balance Static Stand: Minimal Assistance - Pain Comment: Constant pain in R residual limb - Insight/Carryover Insight/Carryover: Fair - Patient/Family Education Comment: amputation recovery, desensitization techniques, safety - Assessment/Plan Assessment: Pt participates in PT tx sessions focusing on BLE strengthening exercises, stretching to BLEs, WC mobility, transfers, and hopping. Pts lethargy and attention flucutuates throughout sessions, with occasional hallucinations. Constant pain in R residual limb. Pt able to perform transfers with min/mod A. Pt will continue to benefit from skilled PT interventions to address deficits, reduce fall risk, and maximzie functional indepndence. - Goals Timeframe: 3 weeks Goals: SIt < > supine CGA. SIt < > stand CGA with RW. Pt will hop 15 ft with RW and CGA - Provider Therapist: frank License Number: [id number] Occupational Therapy - Arousal/Attention/Orientation Patient Orientation: Person, Place, Time - ADL/IADL Self Feeding: Verbal Cues, Set-up Help, Minimal Assistance Grooming: Verbal Cues, Set-up Help, Minimal Assistance Dressing-Upper Extremity: Verbal Cues, Set-up Help, Contact Guard, Minimal Assistance Dressing-Lower Extremity: Verbal Cues, Set-up Help, Moderate Assistance - Sitting Balance Static Sitting: Supervision Dynamic Sitting: Reaches across midline, Reaches out of base of support, Reaches within base of support, Minimal Assistance Comment: seated un supported at edge of bed - Transfers Wheelchair to Bed Transfers: Verbal Cues, Set-up Help, Moderate Assistance Toilet Transfers: Verbal Cues, Set-up Help, Moderate Assistance Comment: commode - Wheelchair Management Level of Assistance: Supervision Distance (ft.): 150 - Upper Extremity Status Right Upper Extremity Comment: AROM is WFLS Left Upper Extremity Comment: AROM is WFLs - Pain Comment: Constant pain in R residual limb - Insight/Carryover Insight/Carryover: Fair - Patient/Family Education Comment: amputation recovery, desensitization techniques, safety - Assessment/Plan Assessment: Pt participates in PT tx sessions focusing on BLE strengthening exercises, stretching to BLEs, WC mobility, transfers, and hopping. Pts lethargy and attention flucutuates throughout sessions, with occasional hallucinations. Constant pain in R residual limb. Pt able to perform transfers with min/mod A. Pt will continue to benefit from skilled PT interventions to address deficits, reduce fall risk, and maximzie functional indepndence. - Goals Timeframe: 3 weeks Goals: SIt < > supine CGA. SIt < > stand CGA with RW. Pt will hop 15 ft with RW and CGA - Provider Therapist: Viridiana Bradshaw, OTR/L License Number: [id number] Speech Therapy - Plan Assessment: Pt participates in PT tx sessions focusing on BLE strengthening exercises, stretching to BLEs, WC mobility, transfers, and hopping. Pts lethargy and attention flucutuates throughout sessions, with occasional hallucinations. Constant pain in R residual limb. Pt able to perform transfers with min/mod A. Pt will continue to benefit from skilled PT interventions to address deficits, reduce fall risk, and maximzie functional indepndence. Recreational Therapy - Participation Participation: Participates in Individual and/or Group Sessions - Attendance Attendance: 3-5 times per week - Activities Leisure Activities: Cards and Games - Socialization Level of Socialization: Initiates/interacts with caregivers but not with peer - Assessment Assessment/Plan: Pt participates in PT tx sessions focusing on BLE strengthening exercises, stretching to BLEs, WC mobility, transfers, and hopping. Pts lethargy and attention flucutuates throughout sessions, with occasional hallucinations. Constant pain in R residual limb. Pt able to perform transfers with min/mod A. Pt will continue to benefit from skilled PT interventions to address deficits, reduce fall risk, and maximzie functional indepndence. - Provider Therapist: Donna Cespedes, SENIOR PRODUCT MANAGER #[id number] Nutrition - Current Diet Current Diet/ Supplement/ Feedings: Heart healthy renal dialysis nepro 8 ounces 3 per day - Appetite Percent Meal Consumed: 25-49% - Comments Comments: CARE POST BKA AND SAFETY PRECAUTIONS - Assessment/Goals/Time Frame Assessment/Goals/Time Frame: Pt at high nutritional risk. goals: 1. Pt to consume 75-100% of meals(met, continue). 2. K+ WNL(met, continue). Follow-up due on 09/30/2017 - Provider Provider: Anya Wills RD Case Management - Psychosocial Assessment Support Systems: Patient lives with son Alex who is supportive and involved in [phone]. Asiya Hunt (daughter)- [phone] Psychological Interventions/Needs: Patient is alert with increased lethargy, pain medications to be adjusted to increase alertness Discharge Concerns: Patient will likely require intermittent assistance at home , patient with no Medicare DELMY time remaining Patient/Family Meeting: CM met with patient/family and rehab team. Intervention/Goal/Outcome:: 1. Goal: Intermittent supervision overall. 2. PLAN: Home with VNS and family support, patient demonstrates periods of lethargy and disorientation, pain regimen to be adjusted. 2. caregiver training to be initiated. 3. DME needs? 4. f/u appts. 5. continued emotional support. - Discharge Plan Discharge Plan: Home with significant other/family - Provider Provider: ALLEGRA Turner, APPLICATION ARCHITECT MANAGER License Number: [id number] Rehabilitation Plan - Treatment Plan Treatment Plan: Physical Therapy, Occupational Therapy, Wound Care, Patient/ Family Education - Recommendation Recommendation: Physical Therapy, Occupational Therapy, Speech, Patient/Family Education - Discharge Plan Discharge to: Home (for surgery)
--- NOTE | 2017-09-27 12:51 | CP.PCM.PN ---
Subjective - Date & Time of Evaluation Date of Evaluation: 09/27/17 Time of Evaluation: 12:00 - Subjective Subjective: patient with problems with stump Objective - Vital Signs/Intake and Output Vital Signs (last 24 hours): Temp Pulse Resp BP Pulse Ox 97.1 F L 93 H 18 132/73 100 09/27/17 08:46 09/27/17 08:46 09/27/17 08:46 09/27/17 08:46 09/27/17 08:46 - Medications Medications: Current Medications Acetaminophen/Codeine Phosphate (Tylenol/Codeine 300 Mg/30 Mg) 1 tab PO Q6 PRN PRN Reason: Pain, severe (8-10) Last Admin: 09/26/17 19:46 Dose: 1 tab Albuterol Sulfate (Albuterol 0.083% Inhal Yaneli (2.5 Mg/3 Ml) Ud) 2.5 mg IH RQ6 [facility] Last Admin: 09/27/17 08:08 Dose: 2.5 mg Amlodipine Besylate (Norvasc) 10 mg PO DAILY [facility] Last Admin: 09/27/17 08:21 Dose: 10 mg Aspirin (Ecotrin) 81 mg PO DAILY [facility] Last Admin: 09/26/17 08:04 Dose: 81 mg Atorvastatin Calcium (Lipitor) 20 mg PO HS [facility] Last Admin: 09/26/17 22:28 Dose: 20 mg Calcitriol (Rocaltrol) 0.5 mcg PO DAILY [facility] Last Admin: 09/27/17 08:22 Dose: 0.5 mcg Calcium Acetate (Phoslo) 667 mg PO TID@0800,1200,1700 [facility] Last Admin: 09/27/17 08:21 Dose: 667 mg Carvedilol (Coreg) 12.5 mg PO Q12 [facility] Last Admin: 09/27/17 08:20 Dose: 12.5 mg Clonidine HCl (Catapres) 0.1 mg PO Q12H [facility] Last Admin: 09/27/17 08:21 Dose: 0.1 mg Clopidogrel Bisulfate (Plavix) 75 mg PO DAILY [facility] Last Admin: 09/26/17 08:03 Dose: 75 mg Epoetin Tobin (Procrit) 20,000 unit IV TTS [facility] Last Admin: 09/26/17 17:17 Dose: 20,000 unit Gabapentin (Neurontin) 200 mg PO Q8 [facility] Last Admin: 09/27/17 07:07 Dose: 200 mg Heparin Sodium (Porcine) (Heparin) 5,000 units SC Q12 [facility] PRN Reason: Protocol Last Admin: 09/27/17 08:22 Dose: 5,000 units Piperacillin Sod/Tazobactam (Sod 2.25 gm/ Sodium Chloride) 100 mls @ 100 mls/ hr IVPB 0600,1800 [facility] PRN Reason: Protocol Lactulose (Enulose) 20 gm PO HS [facility] Last Admin: 09/26/17 22:31 Dose: 20 gm Levetiracetam (Keppra) 500 mg PO Q12 [facility] Last Admin: 09/27/17 08:22 Dose: 500 mg Levothyroxine Sodium (Synthroid) 75 mcg PO DAILY@0630 [facility] Last Admin: 09/27/17 07:06 Dose: 75 mcg Lisinopril (Zestril) 40 mg PO 1300 [facility] Last Admin: 09/24/17 14:03 Dose: Not Given Ondansetron HCl (Zofran Inj) 4 mg IVP Q6 PRN PRN Reason: Nausea/Vomiting Pantoprazole Sodium (Protonix Ec Tab) 40 mg PO DAILY [facility] Last Admin: 09/27/17 08:24 Dose: 40 mg Tramadol HCl (Ultram) 50 mg PO TID PRN PRN Reason: Pain, moderate (4-7) Last Admin: 09/26/17 08:00 Dose: 50 mg - Labs Labs: 09/27/17 06:46 09/27/17 06:46 PT 13.1 Seconds (9.8-13.1) 09/27/17 06:46 INR 1.2 09/27/17 06:46 APTT 21.0 Seconds (25.6-37.1) L 09/27/17 06:46 - Head Exam Head Exam: ATRAUMATIC, NORMAL INSPECTION, NORMOCEPHALIC - Eye Exam Eye Exam: EOMI, Normal appearance Pupil Exam: NORMAL ACCOMODATION, PERRL - ENT Exam ENT Exam: Mucous Membranes Moist, Normal Exam - Neck Exam Neck Exam: Full ROM, Normal Inspection - Respiratory Exam Respiratory Exam: Clear to Ausculation Bilateral, NORMAL BREATHING PATTERN - Cardiovascular Exam Cardiovascular Exam: REGULAR RHYTHM - GI/Abdominal Exam GI & Abdominal Exam: Soft, Normal Bowel Sounds - Rectal Exam Rectal Exam: NORMAL INSPECTION - Exam External exam: NORMAL EXTERNAL EXAM - Extremities Exam Extremities Exam: Full ROM, Normal Capillary Refill, Normal Inspection - Back Exam Back Exam: NORMAL INSPECTION - Neurological Exam Neurological Exam: Alert, Awake Neuro motor strength exam: Left Lower Extremity: 3 - Psychiatric Exam Psychiatric exam: Normal Affect, Normal Mood - Skin Skin Exam: Dry, Normal Color Assessment and Plan (1) Amputation of right lower extremity below knee Status: Acute (2) Anemia of chronic disorder Assessment & Plan: Monitor drainage from stump, Pt Ot Zosyn for treatment patient for surgery at the end of the weekn Status: Active (3) Deep venous thrombosis of lower extremity Status: Active (4) Knee pain Status: Active (5) Renal artery stenosis Status: Active (6) AV shunt thrombosis Status: Acute (7) Abdominal pain Status: Acute (8) Abdominal pain Status: Acute (9) Acute pulmonary edema Status: Acute
[2017-09-28] MEDS: Albuterol 0.083% Inhal Sol (2.5 mg/3 mL) UD IH SCH ×4 (01:03→19:16)
[2017-09-28] MEDS: Levothyroxine 75 MCG TAB PO SCH (05:47)
[2017-09-28] MEDS: Pantoprazole 40 mg EC Tab PO SCH (08:50)
--- NOTE | 2017-09-28 08:57 | CP.PCM.PN ---
Subjective - Date & Time of Evaluation Date of Evaluation: 09/28/17 Time of Evaluation: 08:56 - Subjective Subjective: General surgery progress note for Dr. Eduardo Harper, PGY-2 Pt S & E at bedside at 0720 Pt reports continued severe RLE pain. Denies N & V, F & C. Knows she is for surgery tomorrow. Objective - Vital Signs/Intake and Output Vital Signs (last 24 hours): Temp Pulse Resp BP Pulse Ox 97.3 F L 94 H 22 133/64 99 09/28/17 08:51 09/28/17 08:51 09/28/17 08:51 09/28/17 08:51 09/28/17 08:51 - Medications Medications: Current Medications Acetaminophen/Codeine Phosphate (Tylenol/Codeine 300 Mg/30 Mg) 1 tab PO Q6 PRN PRN Reason: Pain, severe (8-10) Last Admin: 09/26/17 19:46 Dose: 1 tab Albuterol Sulfate (Albuterol 0.083% Inhal Yaneli (2.5 Mg/3 Ml) Ud) 2.5 mg IH RQ6 [facility] Last Admin: 09/28/17 07:48 Dose: 2.5 mg Amlodipine Besylate (Norvasc) 10 mg PO DAILY [facility] Last Admin: 09/28/17 08:49 Dose: 10 mg Aspirin (Ecotrin) 81 mg PO DAILY [facility] Last Admin: 09/26/17 08:04 Dose: 81 mg Atorvastatin Calcium (Lipitor) 20 mg PO HS [facility] Last Admin: 09/27/17 21:15 Dose: 20 mg Calcitriol (Rocaltrol) 0.5 mcg PO DAILY [facility] Last Admin: 09/28/17 08:50 Dose: 0.5 mcg Calcium Acetate (Phoslo) 667 mg PO TID@0800,1200,1700 [facility] Last Admin: 09/28/17 08:46 Dose: 667 mg Carvedilol (Coreg) 12.5 mg PO Q12 [facility] Last Admin: 09/28/17 08:47 Dose: 12.5 mg Clonidine HCl (Catapres) 0.1 mg PO Q12H [facility] Last Admin: 09/28/17 08:47 Dose: 0.1 mg Clopidogrel Bisulfate (Plavix) 75 mg PO DAILY [facility] Last Admin: 09/26/17 08:03 Dose: 75 mg Epoetin Tobin (Procrit) 20,000 unit IV TTS [facility] Last Admin: 09/26/17 17:17 Dose: 20,000 unit Gabapentin (Neurontin) 200 mg PO Q8 [facility] Last Admin: 09/28/17 05:47 Dose: 200 mg Heparin Sodium (Porcine) (Heparin) 5,000 units SC Q12 [facility] PRN Reason: Protocol Last Admin: 09/27/17 21:14 Dose: 5,000 units Piperacillin Sod/Tazobactam (Sod 2.25 gm/ Sodium Chloride) 100 mls @ 100 mls/ hr IVPB 0600,1800 [facility] PRN Reason: Protocol Last Admin: 09/28/17 05:47 Dose: 100 mls/hr Lactulose (Enulose) 20 gm PO HS [facility] Last Admin: 09/27/17 21:14 Dose: 20 gm Levetiracetam (Keppra) 500 mg PO Q12 [facility] Last Admin: 09/28/17 08:49 Dose: 500 mg Levothyroxine Sodium (Synthroid) 75 mcg PO DAILY@0630 [facility] Last Admin: 09/28/17 05:47 Dose: 75 mcg Lisinopril (Zestril) 40 mg PO 1300 [facility] Last Admin: 09/24/17 14:03 Dose: Not Given Ondansetron HCl (Zofran Inj) 4 mg IVP Q6 PRN PRN Reason: Nausea/Vomiting Pantoprazole Sodium (Protonix Ec Tab) 40 mg PO DAILY [facility] Last Admin: 09/28/17 08:50 Dose: 40 mg Tramadol HCl (Ultram) 50 mg PO TID PRN PRN Reason: Pain, moderate (4-7) Last Admin: 09/28/17 08:52 Dose: 50 mg - Labs Labs: 09/27/17 06:46 09/27/17 06:46 PT 13.1 Seconds (9.8-13.1) 09/27/17 06:46 INR 1.2 09/27/17 06:46 APTT 21.0 Seconds (25.6-37.1) L 09/27/17 06:46 - Constitutional Appears: Non-toxic, No Acute Distress - Head Exam Head Exam: ATRAUMATIC, NORMAL INSPECTION, NORMOCEPHALIC - Eye Exam Eye Exam: EOMI, Normal appearance - ENT Exam ENT Exam: Mucous Membranes Moist, Normal Exam - Respiratory Exam Respiratory Exam: NORMAL BREATHING PATTERN - Cardiovascular Exam Cardiovascular Exam: REGULAR RHYTHM - GI/Abdominal Exam GI & Abdominal Exam: Soft. absent: Tenderness - Extremities Exam Additional comments: Right LE with dressing in place- clean/dry/intact - Neurological Exam Neurological Exam: Alert, Awake, CN II-XII Intact, Oriented x3 - Psychiatric Exam Psychiatric exam: Normal Affect, Normal Mood - Skin Skin Exam: Dry, Normal Color (Excluding RLE stump- blackened skin changes), Warm Assessment and Plan - Assessment and Plan (Free Text) Assessment: 56F S/p R BKA with ischemic necrosis Plan: Cont IV Abx Pain control PRN Daily dressing changes as per nursing Elevate RLE, offload pressure on wound NPO past MN tonight No anticoagulation OR tomorrow Consent in chart Medical clearance prior to OR Further mgmt as per primary team LIBBY Harper, PGY-2
[2017-09-28] MEDS: Epoetin Alfa 20000 UNIT/ML Inj IV SCH (16:03)
[2017-09-29] MEDS: Albuterol 0.083% Inhal Sol (2.5 mg/3 mL) UD IH SCH ×2 (01:01→08:29)
[2017-09-29] MEDS: Levothyroxine 75 MCG TAB PO SCH (05:56)
--- NOTE | 2017-09-29 06:37 | CP.PCM.PN ---
Subjective - Date & Time of Evaluation Date of Evaluation: 09/28/17 Time of Evaluation: 19:30 - Subjective Subjective: Patient complaining of pain of amputated limb; denies any difficulty breathing; still not eating much; tolerated HD well today; Objective - Vital Signs/Intake and Output Vital Signs (last 24 hours): Temp Pulse Resp BP Pulse Ox 97.2 F L 101 H 18 140/70 99 09/28/17 20:51 09/28/17 21:47 09/28/17 20:51 09/28/17 21:47 09/28/17 20:51 - Medications Medications: Current Medications Acetaminophen/Codeine Phosphate (Tylenol/Codeine 300 Mg/30 Mg) 1 tab PO Q6 PRN PRN Reason: Pain, severe (8-10) Last Admin: 09/26/17 19:46 Dose: 1 tab Albuterol Sulfate (Albuterol 0.083% Inhal Yaneli (2.5 Mg/3 Ml) Ud) 2.5 mg IH RQ6 [facility] Last Admin: 09/29/17 01:01 Dose: 2.5 mg Amlodipine Besylate (Norvasc) 10 mg PO DAILY [facility] Last Admin: 09/28/17 08:49 Dose: 10 mg Aspirin (Ecotrin) 81 mg PO DAILY [facility] Last Admin: 09/26/17 08:04 Dose: 81 mg Atorvastatin Calcium (Lipitor) 20 mg PO HS [facility] Last Admin: 09/28/17 21:48 Dose: 20 mg Calcitriol (Rocaltrol) 0.5 mcg PO DAILY [facility] Last Admin: 09/28/17 08:50 Dose: 0.5 mcg Calcium Acetate (Phoslo) 667 mg PO TID@0800,1200,1700 [facility] Last Admin: 09/28/17 17:18 Dose: Not Given Carvedilol (Coreg) 12.5 mg PO Q12 [facility] Last Admin: 09/28/17 21:47 Dose: 12.5 mg Clonidine HCl (Catapres) 0.1 mg PO Q12H [facility] Last Admin: 09/28/17 21:47 Dose: 0.1 mg Clopidogrel Bisulfate (Plavix) 75 mg PO DAILY [facility] Last Admin: 09/26/17 08:03 Dose: 75 mg Epoetin Tobin (Procrit) 20,000 unit IV TTS [facility] Last Admin: 09/28/17 16:03 Dose: 20,000 unit Gabapentin (Neurontin) 200 mg PO Q8 [facility] Last Admin: 09/29/17 05:56 Dose: 200 mg Heparin Sodium (Porcine) (Heparin) 5,000 units SC Q12 [facility] PRN Reason: Protocol Last Admin: 09/28/17 21:48 Dose: 5,000 units Piperacillin Sod/Tazobactam (Sod 2.25 gm/ Sodium Chloride) 100 mls @ 100 mls/ hr IVPB 0600,1800 [facility] PRN Reason: Protocol Last Admin: 09/29/17 05:08 Dose: 100 mls/hr Lactulose (Enulose) 20 gm PO HS [facility] Last Admin: 09/28/17 21:48 Dose: 20 gm Levetiracetam (Keppra) 500 mg PO Q12 [facility] Last Admin: 09/28/17 21:48 Dose: 500 mg Levothyroxine Sodium (Synthroid) 75 mcg PO DAILY@0630 [facility] Last Admin: 09/29/17 05:56 Dose: 75 mcg Lisinopril (Zestril) 40 mg PO 1300 [facility] Last Admin: 09/24/17 14:03 Dose: Not Given Ondansetron HCl (Zofran Inj) 4 mg IVP Q6 PRN PRN Reason: Nausea/Vomiting Pantoprazole Sodium (Protonix Ec Tab) 40 mg PO DAILY [facility] Last Admin: 09/28/17 08:50 Dose: 40 mg Tramadol HCl (Ultram) 50 mg PO TID PRN PRN Reason: Pain, moderate (4-7) Last Admin: 09/28/17 19:51 Dose: 50 mg - Labs Labs: 09/27/17 06:46 09/27/17 06:46 PT 13.1 Seconds (9.8-13.1) 09/27/17 06:46 INR 1.2 09/27/17 06:46 APTT 21.0 Seconds (25.6-37.1) L 09/27/17 06:46 - Constitutional Appears: Non-toxic, No Acute Distress - Eye Exam Eye Exam: Normal appearance - Respiratory Exam Respiratory Exam: Clear to Ausculation Bilateral. absent: Respiratory Distress - Cardiovascular Exam Cardiovascular Exam: RRR Additional comments: systolic murmur; - GI/Abdominal Exam GI & Abdominal Exam: Soft. absent: Distended - Extremities Exam Additional comments: no leg edema; - Neurological Exam Neurological Exam: Alert, Awake - Psychiatric Exam Psychiatric exam: absent: Agitated - Skin Skin Exam: Warm. absent: Cyanosis Assessment and Plan (1) ESRD on hemodialysis Assessment & Plan: Stable volume and electrolyte status; tolerated HD today with 2L UF and no hypotension; next HD for Monday per routine; Status: Chronic (2) Hypertensive CKD, ESRD on dialysis Assessment & Plan: BP well controlled lately; continue current meds; Status: Acute (3) Chronic kidney disease-mineral and bone disorder Assessment & Plan: On calcitriol 0.5 mcg daily, continue; holding phoslo for now (low phos); Status: Chronic (4) Anemia in CKD (chronic kidney disease) Assessment & Plan: Hgb stable, will monitor closely after procedure tomorrow; continue EPO on HD; Status: Acute (5) Leukocytosis Status: Acute
[2017-09-29 07:48] VITALS: BP 140/55; PULSE 89; RESP 20; TEMP 97.5; O2SAT 98
--- NOTE | 2017-09-29 08:04 | CP.PCM.CON ---
History of Present Illness - History of Present Illness History of Present Illness: Pt is a 56 year old female admitted to [facility] and referred to the remote mortgage underwriter for evaluation. Med history positive for amputation, upcoming further amputation, CHF, COPD, PVD, dialysis, stents. See medical record for complete medical history and medication list. Social History: Pt lives in a rental apt in [place] with her son. Pt has a [facility] in [facility] and two grandchildren. She reported positive relationships with her children, granchildren and distant relationship with siblings. Ed/Voc: pt raised in [place], graduated HS at age 31, pt worked as an office admin. psych: pt reported a psych hospitalization five years ago with depression/auditory hallucinations. She denied psych intervention prior to admission. Pt denied a history of alc/sub abuse. MSE: Pt alert, oriented to year, not month, day/date, affect constricted, mood depressed "I feel overwhelmed", pt reported current auditory/visual halluciantions "repeating themselves... commanding my behavior." Pt reported passive suicidal feelings with no plan, no intent. Support provided and strategies reviewed to reduce depression/distress regarding amputation. Dx: R/O Delerium r/o Depression with psychotic features Plan: Psych consultation Continued Sup therapy Past Patient History - Infectious Disease Hx of Infectious Diseases: None - Tetanus Immunizations Tetanus Immunization: Unknown - Past Medical History & Family History Past Medical History?: Yes - Past Social History Smoking Status: Former Smoker Chewing Tobacco Use: No Cigar Use: No Alcohol: None - CARDIAC Hx Congestive Heart Failure: Yes Hx Hypercholesterolemia: Yes Hx Hypertension: Yes - PULMONARY Hx Chronic Obstructive Pulmonary Disease (COPD): Yes - NEUROLOGICAL HX Cerebrovascular Accident: Yes - HEENT Hx HEENT Problems: Yes Hx Blind: (nez perce r ear) Other/Comment: tinnitus, - RENAL Date of Last Dialysis Treatment: 08/08/17 - ENDOCRINE/METABOLIC Hx Diabetes Mellitus Type 2: No Hx Hypothyroidism: Yes - HEMATOLOGICAL/ONCOLOGICAL Hx Blood Transfusions: Yes Hx Blood Transfusion Reaction: No - INTEGUMENTARY Hx Dermatological Problems: Yes (non healing sugical wound to right ankle) Other/Comment: inner right ankle wounddry brown had 2 skin grafts, outer back of r foot red/purple closed wound with 2 small dry red areas painful, r foot swollen +2 pitting edema, r ft cold to touch, multiple skin discolorations to both arms, skin discolorations ble, fatty tumor left back r inner ankle wound healing, thick toenails both feet - MUSCULOSKELETAL/RHEUMATOLOGICAL Hx Arthritis: Yes - GASTROINTESTINAL Hx Gastrointestinal Disorders: Yes (chronic nausea, constipation,vomiting) Hx Crohn's Disease: No Hx Diverticulitis: Yes Hx Gall Bladder Disease: No Hx Gastroesophageal Reflux: Yes Hx Pancreatitis: No Other/Comment: diverticulosis, poor appetite and weight loss, hiatal hernia x2 - GENITOURINARY/GYNECOLOGICAL Hx Sexually Transmitted Disorders: No - PSYCHIATRIC Hx Emotional Abuse: No Hx Physical Abuse: No Hx Substance Use: No - SURGICAL HISTORY Hx Surgeries: Yes (tonsillectomy) Hx Appendectomy: Yes Hx Cardiac Catheterization: Yes Hx Section: Yes (X2) Hx Coronary Stent: Yes Hx Herniorrhaphy: Yes Hx Tonsillectomy: Yes Other/Comment: AV graft/ Bilateral leg Arterial bipass - ANESTHESIA Hx Anesthesia: Yes Hx Anesthesia Reactions: No Hx Malignant Hyperthermia: No Meds Allergies/Adverse Reactions: Allergies Allergy/AdvReac Type Severity Reaction Status Date / Time ciprofloxacin Allergy RASH Verified 09/19/17 21:49 hydralazine Allergy RASH Verified 09/19/17 21:49 vancomycin Allergy SHORTNESS Verified 09/19/17 21:[address] dye Allergy RASH Uncoded 09/19/17 21:49 - Medications Medications: Current Medications Acetaminophen/Codeine Phosphate (Tylenol/Codeine 300 Mg/30 Mg) 1 tab PO Q6 PRN PRN Reason: Pain, severe (8-10) Last Admin: 09/26/17 19:46 Dose: 1 tab Albuterol Sulfate (Albuterol 0.083% Inhal Yaneli (2.5 Mg/3 Ml) Ud) 2.5 mg IH RQ6 [facility] Last Admin: 09/29/17 01:01 Dose: 2.5 mg Amlodipine Besylate (Norvasc) 10 mg PO DAILY [facility] Last Admin: 09/28/17 08:49 Dose: 10 mg Aspirin (Ecotrin) 81 mg PO DAILY [facility] Last Admin: 09/26/17 08:04 Dose: 81 mg Atorvastatin Calcium (Lipitor) 20 mg PO HS [facility] Last Admin: 09/28/17 21:48 Dose: 20 mg Calcitriol (Rocaltrol) 0.5 mcg PO DAILY [facility] Last Admin: 09/28/17 08:50 Dose: 0.5 mcg Calcium Acetate (Phoslo) 667 mg PO TID@0800,1200,1700 [facility] Last Admin: 09/28/17 17:18 Dose: Not Given Carvedilol (Coreg) 12.5 mg PO Q12 [facility] Last Admin: 09/28/17 21:47 Dose: 12.5 mg Clonidine HCl (Catapres) 0.1 mg PO Q12H [facility] Last Admin: 09/28/17 21:47 Dose: 0.1 mg Clopidogrel Bisulfate (Plavix) 75 mg PO DAILY [facility] Last Admin: 09/26/17 08:03 Dose: 75 mg Epoetin Tobin (Procrit) 20,000 unit IV TTS [facility] Last Admin: 09/28/17 16:03 Dose: 20,000 unit Gabapentin (Neurontin) 200 mg PO Q8 [facility] Last Admin: 09/29/17 05:56 Dose: 200 mg Heparin Sodium (Porcine) (Heparin) 5,000 units SC Q12 [facility] PRN Reason: Protocol Last Admin: 09/28/17 21:48 Dose: 5,000 units Piperacillin Sod/Tazobactam (Sod 2.25 gm/ Sodium Chloride) 100 mls @ 100 mls/ hr IVPB 0600,1800 [facility] PRN Reason: Protocol Last Admin: 09/29/17 05:08 Dose: 100 mls/hr Lactulose (Enulose) 20 gm PO HS [facility] Last Admin: 09/28/17 21:48 Dose: 20 gm Levetiracetam (Keppra) 500 mg PO Q12 [facility] Last Admin: 09/28/17 21:48 Dose: 500 mg Levothyroxine Sodium (Synthroid) 75 mcg PO DAILY@0630 [facility] Last Admin: 09/29/17 05:56 Dose: 75 mcg Lisinopril (Zestril) 40 mg PO 1300 [facility] Last Admin: 09/24/17 14:03 Dose: Not Given Ondansetron HCl (Zofran Inj) 4 mg IVP Q6 PRN PRN Reason: Nausea/Vomiting Pantoprazole Sodium (Protonix Ec Tab) 40 mg PO DAILY [facility] Last Admin: 09/28/17 08:50 Dose: 40 mg Tramadol HCl (Ultram) 50 mg PO TID PRN PRN Reason: Pain, moderate (4-7) Last Admin: 09/28/17 19:51 Dose: 50 mg Results - Vital Signs Recent Vital Signs: Last Vital Signs Temp 97.5 F L 09/29/17 07:47 Pulse 89 09/29/17 07:47 Resp 20 09/29/17 07:47 BP 140/55 L 09/29/17 07:47 Pulse Ox 98 09/29/17 07:47 - Labs Result Diagrams: 09/27/17 06:46 09/27/17 06:46
[2017-09-29 08:48] LABS: INR 1.2
[2017-09-29] MEDS: Pantoprazole 40 mg EC Tab PO SCH (08:48)
[2017-09-29 08:51] LABS: PARTIAL THROMBOPLASTIN TIME 26.2 Seconds (25.6-37.1)
[2017-09-29 08:52] LABS: HEMOGLOBIN 9.1 g/dL (12.0-16.0); MEAN CELL VOLUME 91.4 fl (81.0-99.0); MEAN CORPUSCULAR HEMOGLOBIN 27.1 pg (27.0-31.0); MEAN CORPUSCULAR HGB CONC 29.7 g/dL (33.0-37.0); RBC 3.37 Mil/uL (3.80-5.20); RED CELL DISTRIBUTION WIDTH 19.2 % (11.5-14.5); WHITE BLOOD COUNT 15.1 K/uL (4.8-10.8)
[2017-09-29 09:10] LABS: ALB/GLOB RATIO 1.1 (1.0-2.1); ALBUMIN 3.4 g/dL (3.5-5.0); CALCIUM 9.7 mg/dL (8.4-10.2)
--- NOTE | 2017-09-29 17:40 | CP.PCM.DIS ---
Provider - Provider Date of Admission: 09/19/17 21:43 Attending physician: Charlie Hyatt Consults: Dr Taras Sommers Time Spent in preparation of Discharge (in minutes): 25 Diagnosis - Discharge Diagnosis (1) Peripheral vascular disease Status: Chronic Comment: will need AKA on right BKA because of ischemic necrosis (2) ESRD (end stage renal disease) on dialysis Status: Chronic Comment: HD TThS (3) Anemia in CKD (chronic kidney disease) Status: Chronic Comment: continue Procrit (4) Hypertension Status: Chronic Comment: BP controlled. on Zestril, Coreg, Norvasc and Catapress (5) Seizures Status: Chronic Comment: on Keppra 500mg PO q 12hrs (6) CAD (coronary artery disease) Status: Chronic Comment: continue Coreg, ASA and statin Hospital Course - Lab Results Lab Results: Micro Results 09/24/17 19:00 Blood Blood Culture - Preliminary NO GROWTH AFTER 4 DAYS 09/24/17 18:30 Blood Blood Culture - Preliminary NO GROWTH AFTER 4 DAYS 09/23/17 21:00 Incision Site Gram Stain - Final 09/23/17 21:00 Incision Site Wound Culture - Final Enterobacter Sakazakii Most Recent Lab Values WBC 15.1 K/uL (4.8-10.8) H 09/29/17 08:36 RBC 3.37 Mil/uL (3.80-5.20) L 09/29/17 08:36 Hgb 9.1 g/dL (12.0-16.0) L 09/29/17 08:36 Hct 30.8 % (34.0-47.0) L 09/29/17 08:36 MCV 91.4 fl (81.0-99.0) 09/29/17 08:36 MCH 27.1 pg (27.0-31.0) 09/29/17 08:36 MCHC 29.7 g/dL (33.0-37.0) L 09/29/17 08:36 RDW 19.2 % (11.5-14.5) H 09/29/17 08:36 Plt Count 407 K/uL (130-400) H 09/29/17 08:36 MPV 9.7 fl (7.2-11.7) 09/20/17 05:25 Neut % (Auto) 81.2 % (50.0-75.0) H 09/20/17 05:25 Lymph % (Auto) 9.8 % (20.0-40.0) L 09/20/17 05:25 Kimball % (Auto) 8.2 % (0.0-10.0) 09/20/17 05:25 Eos % (Auto) 0.4 % (0.0-4.0) 09/20/17 05:25 Baso % (Auto) 0.4 % (0.0-2.0) 09/20/17 05:25 Neut # (Auto) 10.0 K/uL (1.8-7.0) H 09/20/17 05:25 Lymph # (Auto) 1.2 K/uL (1.0-4.3) 09/20/17 05:25 Kimball # (Auto) 1.0 K/uL (0.0-0.8) H 09/20/17 05:25 Eos # (Auto) 0.0 K/uL (0.0-0.7) 09/20/17 05:25 Baso # (Auto) 0.1 K/uL (0.0-0.2) 09/20/17 05:25 Neutrophils % (Manual) 86 % (42-75) H 09/20/17 05:25 Lymphocytes % (Manual) 8 % (20-50) L 09/20/17 05:25 Monocytes % (Manual) 6 % (0-10) 09/20/17 05:25 Platelet Estimate Normal (NORMAL) 09/20/17 05:25 Hypochromasia (manual) Moderate 09/20/17 05:25 Anisocytosis (manual) Slight 09/20/17 05:25 Tear Drop Cells Slight 09/20/17 05:25 Ovalocytes Slight 09/20/17 05:25 Schistocytes Slight 09/20/17 05:25 PT 13.0 Seconds (9.8-13.1) 09/29/17 08:36 INR 1.2 09/29/17 08:36 APTT 26.2 Seconds (25.6-37.1) 09/29/17 08:36 Sodium 139 mmol/l (132-148) 09/29/17 08:36 Potassium 4.0 MMOL/L (3.6-5.0) 09/29/17 08:36 Chloride 102 mmol/L (98-107) 09/29/17 08:36 Carbon Dioxide 28 mmol/L (22-30) 09/29/17 08:36 Anion Gap 13 (10-20) 09/29/17 08:36 BUN 28 mg/dl (7-17) H 09/29/17 08:36 Creatinine 2.9 mg/dl (0.7-1.2) H 09/29/17 08:36 Est GFR ( Amer) 20 09/29/17 08:36 Est GFR (Non-Af Amer) 17 09/29/17 08:36 POC Glucose (mg/dL) 104 mg/dL (65-110) 09/23/17 22:07 Random Glucose 112 mg/dL (65-105) H 09/29/17 08:36 Calcium 9.7 mg/dL (8.4-10.2) 09/29/17 08:36 Phosphorus 2.9 mg/dl (2.5-4.5) 09/29/17 08:36 Magnesium 2.1 MG/DL (1.6-2.3) 09/29/17 08:36 Iron 16 ug/dL (37-170) L 09/20/17 20:00 TIBC 155 ug/dL (250-450) L 09/20/17 20:00 % Saturation 10 % (20-55) L 09/20/17 20:00 Ferritin 1520.0 ng/Ml (11.1-264.0) H 09/20/17 20:08 Total Bilirubin 0.5 mg/dl (0.2-1.3) 09/29/17 08:36 AST 31 U/L (14-36) 09/29/17 08:36 ALT 17 U/L (9-52) 09/29/17 08:36 Alkaline Phosphatase 218 U/L (38-126) H 09/29/17 08:36 Total Protein 6.4 G/DL (6.3-8.2) 09/29/17 08:36 Albumin 3.4 g/dL (3.5-5.0) L 09/29/17 08:36 Globulin 3.0 gm/dL (2.2-3.9) 09/29/17 08:36 Albumin/Globulin Ratio 1.1 (1.0-2.1) 09/29/17 08:36 TSH 3rd Generation 2.16 mIU/ML (0.46-4.68) 09/20/17 05:25 PTH Intact Whole Molec 823 pg/mL (14-64) H 09/20/17 20:00 Hep Bs Antigen Negative (NEGATIVE) 09/20/17 20:08 Hep Bs Antibody Negative (NEGATIVE) 09/20/17 20:08 Hep B Core IgM Ab Negative (NEGATIVE) 09/20/17 20:08 Hepatitis C Antibody Negative (NEGATIVE) 09/20/17 20:08 Blood Type O POSITIVE 09/27/17 06:25 Antibody Screen Negative 09/27/17 06:25 BBK History Checked Patient has bt 09/27/17 06:25 - Hospital Course Hospital Course: 56 yo female with history of ESRD, DM2, HTN and PAD had right BKA at [facility] [place] because of non-healing wound on the right leg. She was transferred to [facility] and admitted to TCU for continued management and therapy. Right BK stump developed ischemic necrosis so patient was scheduled for AKA and discharged to [facility]. Discharge Exam - Head Exam Head Exam: ATRAUMATIC, NORMAL INSPECTION, NORMOCEPHALIC - Eye Exam Eye Exam: absent: Scleral icterus - ENT Exam ENT Exam: Mucous Membranes Moist - Respiratory Exam Respiratory Exam: absent: Rales, Rhonchi, Wheezes, Respiratory Distress - Cardiovascular Exam Cardiovascular Exam: REGULAR RHYTHM, +S1, +S2 - GI/Abdominal Exam GI & Abdominal Exam: Soft. absent: Tenderness - Rectal Exam Rectal Exam: Deferred - Neurological Exam Neurological exam: Alert, Oriented x3 - Psychiatric Exam Psychiatric exam: Normal Affect - Skin Skin Exam: Dry, Intact Discharge Plan - Follow Up Plan Condition: GOOD Disposition: HOSPITALIZED
== END 2017-09-29 10:55 | disposition short-term general hospital (02) | DRG 559 ==
PROVIDERS: ADMIT Internal Medicine; ATTEND Internal Medicine
PROC: F08 Physical Rehabilitation and Diagnostic Audiology, Rehabilitation, Activities of Daily Living Treatment (ICD-10-PCS; 2017-09-19)
PROC: F07M6FZ Therapeutic Exercise Treatment of Musculoskeletal System - Whole Body using Assistive, Adaptive, Supportive or Protective Equipment (ICD-10-PCS; 2017-09-19)
PROC: F08Z4FZ Home Management Treatment using Assistive, Adaptive, Supportive or Protective Equipment (ICD-10-PCS; 2017-09-19)
PROC: 3E0F7GC Introduction of Other Therapeutic Substance into Respiratory Tract, Via Natural or Artificial Opening (ICD-10-PCS; 2017-09-20)
PROC: 5A1D70Z Performance of Urinary Filtration, Intermittent, Less than 6 Hours Per Day (ICD-10-PCS; principal; 2017-09-23)
PROC: 5A1D70Z Performance of Urinary Filtration, Intermittent, Less than 6 Hours Per Day (ICD-10-PCS; 2017-09-26)
DX: Z47.81 Encounter for orthopedic aftercare following surgical amputation (principal); N18.6 End stage renal disease; I13.2 Hypertensive heart and chronic kidney disease with heart failure and with stage 5 chronic kidney disease, or end stage renal disease; R44.3 Hallucinations, unspecified; I82.409 Acute embolism and thrombosis of unspecified deep veins of unspecified lower extremity; Z89.511 Acquired absence of right leg below knee; Z90.49 Acquired absence of other specified parts of digestive tract; Z95.5 Presence of coronary angioplasty implant and graft; Z99.2 Dependence on renal dialysis; E11.22 Type 2 diabetes mellitus with diabetic chronic kidney disease; I50.9 Heart failure, unspecified; D63.1 Anemia in chronic kidney disease; E78.5 Hyperlipidemia, unspecified; I27.20 Pulmonary hypertension, unspecified; F32.9 Major depressive disorder, single episode, unspecified; K59.00 Constipation, unspecified; M19.90 Unspecified osteoarthritis, unspecified site; M79.604 Pain in right leg; R41.82 Altered mental status, unspecified; K44.9 Diaphragmatic hernia without obstruction or gangrene; R63.4 Abnormal weight loss; E03.9 Hypothyroidism, unspecified; E11.51 Type 2 diabetes mellitus with diabetic peripheral angiopathy without gangrene; E78.00 Pure hypercholesterolemia, unspecified; F41.9 Anxiety disorder, unspecified; G47.30 Sleep apnea, unspecified; G54.6 Phantom limb syndrome with pain; H54.7 Unspecified visual loss; H93.19 Tinnitus, unspecified ear; I25.10 Atherosclerotic heart disease of native coronary artery without angina pectoris; I70.1 Atherosclerosis of renal artery; J44.9 Chronic obstructive pulmonary disease, unspecified; K21.9 Gastro-esophageal reflux disease without esophagitis; K57.90 Diverticulosis of intestine, part unspecified, without perforation or abscess without bleeding; R56.9 Unspecified convulsions; Z86.73 Personal history of transient ischemic attack (TIA), and cerebral infarction without residual deficits; Z87.891 Personal history of nicotine dependence; T82.868D Thrombosis due to vascular prosthetic devices, implants and grafts, subsequent encounter; Y83.2 Surgical operation with anastomosis, bypass or graft as the cause of abnormal reaction of the patient, or of later complication, without mention of misadventure at the time of the procedure; Z88.1 Allergy status to other antibiotic agents

== ENCOUNTER 2017-09-29 10:54 | Inpatient (IN) | payer MEDICARE ==
[2017-09-29 12:34] VITALS: BMI 31.4
--- NOTE | 2017-09-29 12:41 | CP.SDSHP ---
Same Day Surgery H & P - History Proposed Procedure: Right Above the knee Amputation Pre-Op Diagnosis: Right below the knee ischemic necrosis - Previous Medical/Surgical History Cardiac: Hypertension, ASHD/CAD Pulmonary: Asthma, Emphysema/COPD Endocrine/Metabolic: Diabetes, Renal Disease Pain: 8.Very Severe Previous Surgical History: right bka, lower extremity bypass, RUE AVF, appendectomy, - Allergies Allergies: Allergies ciprofloxacin Allergy (Verified 09/19/17 21:49) RASH hydralazine Allergy (Verified 09/19/17 21:49) RASH vomiting vancomycin Allergy (Verified 09/19/17 21:49) SHORTNESS OF BREATH palpitations ct dye Allergy (Uncoded 09/19/17 21:49) RASH - Physical Exam General Appearance: NAD, non toxic Mental Status: Alert & Oriented x3 Heart: WNL Lungs: WNL GI: WNL - {Optional Preform as Required} Integument: Other (right BKA stump with black, necrotic tissue extending from incision anteriorly, medially, laterally and posteriorly, very tender to palpation) - Impression Impression: 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 Evaluated Today:Candidate for Anesthesia & Procedure: Yes - Date & Time Date: 09/29/17 Time: 12:45 Short Stay Discharge - Short Stay Discharge Admitting Diagnosis/Reason for Visit: S/P RIGHT BKA Referrals: Jose Lanza MD [Primary Care Provider] - Additional Instructions (Diet, Activity): to be admitted to med surg under hospitalist to resume all meds excluding Gabapentin and Dilaudid
[2017-09-29] MEDS ORDERED: Bupivacaine HCl 0.25% PF (30 ml) Inj ONE (13:28)
[2017-09-29] MEDS ORDERED: EPINEPHrine 1 mg/ml (1:1000) Inj ONE (13:30)
[2017-09-29] MEDS ORDERED: Ropivacaine 0.5% 30ML IV ONE (13:31)
[2017-09-29] MEDS ORDERED: Lidocaine 2% MPF (5 ml) Inj ONE (13:35)
[2017-09-29] MEDS ORDERED: Lactated Ringer's 1,000 ML IV ONE (16:39)
[2017-09-29] MEDS ORDERED: HYDROmorphone 1 mg/ml ISec IVP PRN (18:57)
[2017-09-29] MEDS ORDERED: oxyCODONE 5 mg Immediate Release Tab PO PRN (19:01)
--- NOTE | 2017-09-29 19:01 | PCM.SURG1 ---
Surgeon's Initial Post Op Note - Surgeon's Notes Surgeon: Dr. Juan Pablo Grajeda Maintenance Data Analyst: Jose Enrique Hutson, PGY-4; Bette Harper, PGY-2 Type of Anesthesia: IV Sedation, Local Anesthesia Administered By: Dr. Jack Hou Pre-Operative Diagnosis: Ischemic necrosis of right lower extremity below the knee amputation Operative Findings: See op report Post-Operative Diagnosis: Ischemic necrosis of right lower extremity below the knee amputation Operation Performed: Right lower extremity above the knee amputation Specimen/Specimens Removed: Right knee Estimated Blood Loss: EBL {In ML}: 20 Blood Products Given: N/A Drains Used: No Drains Post-Op Condition: Good Date of Surgery/Procedure: 09/29/17 Time of Surgery/Procedure: 16:00
--- NOTE | 2017-09-29 19:13 | PCM.ANESB3 ---
Femoral Nerve Block - Femoral Nerve Block Date of Procedure: 09/29/17 Anesthesiologist: Vic Hou Pre-Procedure Diagnosis: Non-healing R BKA Post-Procedure Diagnosis: Non-healing R BKA Procedure Performed: Femoral Nerve Block Right - Procedure Femoral Nerve Block: The procedure was explained to the patient that it is for the post-operative pain management. Consent was obtained after a thorough discussion with the patient regarding the benefits and possible complications of local anesthetic block of the femoral nerve at the inguinal crease area. The patient was brought to the operating room and standard monitors were applied. Time-out was held with the circulating nurse to confirm the correct surgery and the appropriate block. After applying oxygen by nasal cannula and administering IV Sedation, patient was placed in supine position with fully extended lower extremities and the right groin exposed. The femoral artery was then carefully palpated. The ultrasound transducer was then applied to this area in the transverse plane and the femoral nerve was visualized lateral to the femoral artery and underneath the fascia iliaca. After thorough identification, the inguinal crease area was prepped with Chlorhexidine and 1 % Lidocaine was injected subcutaneously for topical anesthesia. At this point, a #22 gauge Stimuplex 2-inch needle was inserted immediately lateral to the femoral artery pulse at the inguinal crease and advanced perpendicularly. The needle was inserted to the ultrasound transducer in-plane towards the femoral nerve in a [id number] direction. Needle advancement was performed carefully under direct ultrasound visualization. Nerve stimulator was used and twitch of the quadriceps muscle was obtained at current of 0.3 MA. After negative aspiration, 30cc of 0.5% ropivacaine was injected in 5cc aliquots. Under ultrasound guidance the local anesthetics were observed spreading below fascia iliaca and around the femoral nerve. The needle was removed intact and sterile dressing was applied. The patient had stable vital signs, was conscious and in no apparent distress. The patient tolerated the femoral nerve block well with stable vital signs and was prepared for subsequent surgery.
--- NOTE | 2017-09-29 19:16 | PCM.ANESB2 ---
Popliteal Nerve Block - Popliteal Nerve Block Date of Procedure: 09/29/17 Anesthesiologist: Vic Hou Pre-Procedure Diagnosis: Non-healing BKA Post-Procedure Diagnosis: Non-healing BKA Procedure Performed: Popliteal Nerve Block Right - Procedure Popliteal Nerve Block: This procedure was explained to the patient that it is for post-operative pain management. Consent was obtained after a thorough discussion with the patient regarding the benefits and possible complications of local anesthetic block of the sciatic nerve at the popliteal level. The patient was brought to the operating room and standard monitors are applied. Time-out was held with the circulating nurse to confirm the correct surgery and the appropriate block. After applying oxygen by nasal cannula and administering IV Sedation, patient's operative leg was gently raised and supported and the groove in between the ischial tuberosity and greater trochanter was carefully palpated. The ultrasound transducer was then applied to the posterior thigh approximately 2cm below the gluteal fold in the transverse plane and the sciatic nerve was visualized. After identification, the lateral portion of the thigh was prepped with Betadine solution three times and Lidocaine 1% was injected subcutaneously for topical anesthesia. At this point, a # 21 gauge Stimuplex insulated 4 inch needle was inserted into pre-marked area and advanced in a perpendicular direction. The needle was inserted above the ultrasound transducer in-plane towards the sciatic nerve in a [id number] direction. Needle advancement was performed carefully under direct ultrasound visualization. After repeated negative aspiration, 20cc of 0.5% ropivacaine was injected in 5cc aliquots. Under ultrasound guidance the local anesthetics were observed surrounding sciatic nerve . The needle was removed intact and sterile dressing was applied. The patient tolerated the popliteal nerve block well with stable vital signs and was subsequently prepared for the surgery.
--- NOTE | 2017-09-29 19:25 | CP.PCM.HP ---
History of Present Illness - History of Present Illness History of Present Illness: 56 yo female with history of ESRD, DM2, HTN and PAD had right B[place] [facility] [place] because of non-healing wound on the right leg. She was transferred to [facility] and admitted to TCU for continued management and therapy. Right BK stump did not heal and developed ischemic necrosis. She was discharged to [facility] and had right AKA. Present on Admission - Present on Admission Any Indicators Present on Admission: No History of DVT/PE: No History of Uncontrolled Diabetes: No Urinary Catheter: No Decubitus Ulcer Present: No Review of Systems - Review of Systems All systems: reviewed and no additional remarkable complaints except (aside from those mentioned above, 12 point system review were negative by me) Past Patient History - Infectious Disease Hx of Infectious Diseases: None - Tetanus Immunizations Tetanus Immunization: Unknown - Past Medical History & Family History Past Medical History?: Yes - Past Social History Smoking Status: Former Smoker Chewing Tobacco Use: No Cigar Use: No Alcohol: None Drugs: Denies - CARDIAC Hx Cardiac Disorders: Yes (mi x2 07/2016 pericardial window) Hx Angina: Yes Hx Cardia Arrhythmia: Yes Hx Circulatory Problems: Yes Hx Congestive Heart Failure: Yes Hx Heart Attack: Yes Hx Heart Murmur: No Hx Heart Transplant: No Hx Hypercholesterolemia: Yes Hx Hypertension: Yes Hx Internal Defibrillator: No Hx Mitral Valve Prolapse: No Hx Pacemaker: No Hx Peripheral Edema: Yes (right foot +2 pitting) Hx Peripheral Vascular Disease: Yes (pain numbness when ambulating) Other/Comment: Right Carotid angioplasty and stent placement. Multiple CVA - PULMONARY Hx Respiratory Disorders: Yes Hx Asthma: Yes Hx Bronchitis: No Hx Chronic Obstructive Pulmonary Disease (COPD): Yes Hx Emphysema: Yes Hx Pneumonia: Yes Hx Respiratory Aspiration: No Hx Respiratory Tract Infection: No Hx Sleep Apnea: Yes Hx Tuberculosis: No Other/Comment: former smoker - NEUROLOGICAL Hx Neurological Disorder: Yes Hx Alzheimer's Disease: No HX Cerebrovascular Accident: Yes Hx Dementia: No Hx Dizziness: No Hx Meningitis: No Hx Migraine: Yes Hx Paralysis: No Hx Parkinson's Disease: No Hx Seizures: Yes Hx Transient Ischemic Attacks (TIA): Yes Other/Comment: pt had 4 strokes and 4 seizures in one day and 1 stroke with seizure another day, c/o memory loss difficulty walking post tia's - HEENT Hx HEENT Problems: Yes 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) Hx Cataracts: No 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) Hx Difficulty Chewing: No Hx Epistaxis: No Hx Glaucoma: No Hx Macular Degeneration: No Other/Comment: tinnitus, - RENAL Date of Last Dialysis Treatment: 09/28/17 - ENDOCRINE/METABOLIC Hx Endocrine Disorders: Yes Hx Adrenal Cancer: No Hx Diabetes Insipidus: No Hx Diabetes Mellitus Type 1: No Hx Diabetes Mellitus Type 2: No Hx Hyperthyroidism: No Hx Hypothyroidism: Yes Hx Systemic Lupus Erythematosus: No Other/Comment: 2 cysts on thyroid - HEMATOLOGICAL/ONCOLOGICAL Hx Blood Disorders: No Hx AIDS: No Hx Anemia: Yes (blood transfusions) Hx Blood Transfusions: Yes Hx Blood Transfusion Reaction: No Hx Cancer: No Hx Chemotherapy: No Hx Cirrhosis: No Hx Hemophilia: No Hx Hepatitis A: No Hx Hepatitis B: No Hx Hepatitis C: No Hx Human Immunodeficiency Virus (HIV): No Hx Metastesis: No Hx Shingles: No Hx Sickle Cell Disease: No Hx Unexplained Bleeding: No Other/Comment: anemia of chronic kidney disease - INTEGUMENTARY Hx Dermatological Problems: Yes (non healing sugical wound to right ankle) Hx Basil Cell: No Hx Eczema: No Hx Melanoma: No Hx Psoriasis: No Hx Squamous Cell: No Other/Comment: inner right ankle wounddry brown had 2 skin grafts, outer back of r foot red/purple closed wound with 2 small dry red areas painful, r foot swollen +2 pitting edema, r ft cold to touch, multiple skin discolorations to both arms, skin discolorations ble, fatty tumor left back r inner ankle wound healing, thick toenails both feet - MUSCULOSKELETAL/RHEUMATOLOGICAL Hx Musculoskeletal Disorders: No Hx Arthritis: Yes Hx Back Pain: Yes Hx Degenerative Joint Disease: No Hx Falls: No Hx Fractures: No Hx Gout: No Hx Herniated Disk: No Hx Myasthenia Gravis: No Hx Osteoarthritis: Yes Hx Osteomyelitis: No Hx Osteoporosis: No Hx Rhabdomyolysis: No Hx Spinal Stenosis: No Hx Unsteady Gait: Yes (uses w/ch) Other/Comment: decreased rom right arm - GASTROINTESTINAL Hx Gastrointestinal Disorders: Yes (chronic nausea, constipation,vomiting) Hx Colostomy: No Hx Crohn's Disease: No Hx Diverticulitis: Yes Hx Gall Bladder Disease: No Hx Gastroesophageal Reflux: Yes Hx Ileostomy: No Hx Liver Failure: No Hx Pancreatitis: No HX Swallowing Problems: No Hx Ulcer: No Other/Comment: diverticulosis, poor appetite and weight loss, hiatal hernia x2 - GENITOURINARY/GYNECOLOGICAL Hx Genitourinary Disorders: No Hx Hematuria: No Hx Incontinence: No Hx Reproductive Disorders: No Hx Sexually Transmitted Disorders: No Hx Urinary Tract Infection: No Other/Comment: pt voids - PSYCHIATRIC Hx Emotional Abuse: No Hx Physical Abuse: No - SURGICAL HISTORY Hx Surgeries: Yes (tonsillectomy) Hx Amputation: No Hx Angioplasty: Yes (R external Iliac with stent, R profunda femoral angioplasty (08/2016)) Hx Appendectomy: Yes Hx Arteriovenous Shunt: Yes (Right) Hx Cardiac Catheterization: Yes Hx Section: Yes (X2) Hx Cholecystectomy: No Hx Coronary Stent: Yes Hx Gastric Bypass Surgery: No Hx Herniorrhaphy: Yes Hx Hysterectomy: No Hx Joint Replacement: No Hx Kidney Transplant: No Hx Liver Transplant: No Hx Mastectomy: No Hx Musculoskeletal Surgery: No Hx Open Heart Surgery: No Hx Orthopedic Surgery: No Hx Splenectomy: No Hx Tonsillectomy: Yes Hx Valve Replacement: No Hx Vascular Surgery: Yes Hx Vascular Access Device: Yes Other/Comment: AV graft/ Bilateral leg Arterial bipass - ANESTHESIA Hx Anesthesia: Yes Hx Anesthesia Reactions: No Hx Malignant Hyperthermia: No Meds Allergies/Adverse Reactions: Allergies Allergy/AdvReac Type Severity Reaction Status Date / Time ciprofloxacin Allergy RASH Verified 09/29/17 14:38 hydralazine Allergy RASH Verified 09/29/17 14:38 vancomycin Allergy SHORTNESS Verified 09/29/17 14:[address] dye Allergy RASH Uncoded 09/29/17 14:38 Physical Exam - Constitutional Appears: No Acute Distress - Head Exam Head Exam: ATRAUMATIC - Eye Exam Eye Exam: absent: Scleral icterus - ENT Exam ENT Exam: Mucous Membranes Moist - Neck Exam Neck exam: Negative for: Meningismus - Respiratory Exam Respiratory Exam: absent: Rales, Rhonchi, Wheezes, Respiratory Distress - Cardiovascular Exam Cardiovascular Exam: REGULAR RHYTHM, +S1, +S2 - GI/Abdominal Exam GI & Abdominal Exam: Soft. absent: Tenderness - Rectal Exam Rectal Exam: Deferred - Extremities Exam Additional comments: right leg AKA with dressing intact - Back Exam Back exam: absent: tenderness - Neurological Exam Neurological exam: Alert, Oriented x3 - Psychiatric Exam Psychiatric exam: Normal Affect - Skin Skin Exam: Dry, Intact Results - Vital Signs Recent Vital Signs: Last Vital Signs Temp 98.3 F 09/29/17 12:00 Pulse 75 09/29/17 14:56 Resp 18 09/29/17 12:00 BP 123/59 L 09/29/17 12:00 Pulse Ox 95 09/29/17 12:00 - Labs Labs: Laboratory Results - last 24 hr 09/29/17 09/29/17 12:55 18:48 POC Glucose (mg/dL) 111 H Blood Type O POSITIVE Antibody Screen Negative Crossmatch See Detail BBK History Checked Patient has bt Assessment & Plan - Assessment and Plan (Free Text) Assessment: 56 yo female with history of ESRD, DM2, HTN and PAD had right B[place] at [facility] on because of non-healing wound on the right leg. She was transferred to [facility] and admitted to TCU for continued management and therapy. Right BK stump did not heal and developed ischemic necrosis. She was then discharged to [facility] and had right AKA. 1. PAD Post right AKA daily dressing and wound care management 2. ESRD HD on TThS Dr Hirsch on renal consult 3. Anemia of Chronic Disease continue Procrit 20,000 units IV TThS 4. Anxiety on Ativan PRN 5. Hypothyroidism continue Levothyroxine 75 mcg PO daily TSH: 2.16 6. HTN BP stable continue Zestril/Coreg/Norvasc/Catapress 7. Seizure Keppra 500mg PO q 12hrs 8. CAD s/p coronary stent placement continue Coreg/ASA/Lipitor 9. DVT Prophylaxis Heparin 5000 units q 12hrs
[2017-09-29] MEDS: HYDROmorphone 1 mg/ml ISec IVP PRN (22:12)
--- NOTE | 2017-09-29 23:12 | CP.PCM.CON ---
History of Present Illness - History of Present Illness History of Present Illness: 56 yo F w/ pmh of htn, dm, CAD s/p stent, CHF w/ diastolic dysfunction, PAD s/p R BKA, COPD, and ESRD on HD (TTS, at [facility], neonatal doctor Dr. Gina Hamilton), admitted to med-surg floor s/p R AKA this evening; nephrology being consulted for ESRD care; Patient seen this evening just after R AKA procedure, still under effect of sedation; procedure done due to ischemic necrosis of R BKA stump site; procedure done with femoral and popliteal nerve block due to difficulty with extubation on previous procedure done with general anesthesia; 20 cc blood loss and received ~400 cc fluids during procedure; Patient had R BKA done earlier this month at [facility] in the setting of non-healing RLE ulcer with severe, intractable pain of affected limb ; patient was subsequently discharged to subacute rehab at [facility]; In rehab, patient had still been complaining of pain of RLE following BKA; had been having periods of hallucination and decreased arousability; PO intake had decreased substantially; she otherwise denied any difficulty breathing in recent days; had been tolerating HD well with ~1.5L net UF during treatments; Review of Systems - Review of Systems Systems not reviewed;Unavailable: Altered Mental Status - EENT Eyes: absent: Change in Vision - Cardiovascular Cardiovascular: absent: Chest Pain, Palpitations - Respiratory Respiratory: absent: Dyspnea - Gastrointestinal Gastrointestinal: absent: Nausea, Vomiting - Genitourinary Additional comments: anuric - Musculoskeletal Additional comments: RLE pain; - Integumentary Additional comments: see HPI; ischemic necrosis of R BKA stump - Psychiatric Psychiatric: As Per HPI Past Patient History - Infectious Disease Hx of Infectious Diseases: None - Tetanus Immunizations Tetanus Immunization: Unknown - Past Medical History & Family History Past Medical History?: Yes Pertinent Family History: Brain aneurysm (brother, father?); heart disease (mother); - Past Social History Smoking Status: Former Smoker Chewing Tobacco Use: No Cigar Use: No Alcohol: None Drugs: Denies - CARDIAC Hx Cardiac Disorders: Yes (mi x2 07/2016 pericardial window) Hx Angina: Yes Hx Cardia Arrhythmia: Yes Hx Circulatory Problems: Yes Hx Congestive Heart Failure: Yes Hx Heart Attack: Yes Hx Heart Murmur: No Hx Heart Transplant: No Hx Hypercholesterolemia: Yes Hx Hypertension: Yes Hx Internal Defibrillator: No Hx Mitral Valve Prolapse: No Hx Pacemaker: No Hx Peripheral Edema: Yes (right foot +2 pitting) Hx Peripheral Vascular Disease: Yes (pain numbness when ambulating) Other/Comment: Right Carotid angioplasty and stent placement. Multiple CVA - PULMONARY Hx Respiratory Disorders: Yes Hx Asthma: Yes Hx Bronchitis: No Hx Chronic Obstructive Pulmonary Disease (COPD): Yes Hx Emphysema: Yes Hx Pneumonia: Yes Hx Respiratory Aspiration: No Hx Respiratory Tract Infection: No Hx Sleep Apnea: Yes Hx Tuberculosis: No Other/Comment: former smoker - NEUROLOGICAL Hx Neurological Disorder: Yes Hx Alzheimer's Disease: No HX Cerebrovascular Accident: Yes Hx Dementia: No Hx Dizziness: No Hx Meningitis: No Hx Migraine: Yes Hx Paralysis: No Hx Parkinson's Disease: No Hx Seizures: Yes Hx Transient Ischemic Attacks (TIA): Yes Other/Comment: pt had 4 strokes and 4 seizures in one day and 1 stroke with seizure another day, c/o memory loss difficulty walking post tia's - HEENT Hx HEENT Problems: Yes 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) Hx Cataracts: No 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) Hx Difficulty Chewing: No Hx Epistaxis: No Hx Glaucoma: No Hx Macular Degeneration: No Other/Comment: tinnitus, - RENAL Date of Last Dialysis Treatment: 09/28/17 - ENDOCRINE/METABOLIC Hx Endocrine Disorders: Yes Hx Adrenal Cancer: No Hx Diabetes Insipidus: No Hx Diabetes Mellitus Type 1: No Hx Diabetes Mellitus Type 2: No Hx Hyperthyroidism: No Hx Hypothyroidism: Yes Hx Systemic Lupus Erythematosus: No Other/Comment: 2 cysts on thyroid - HEMATOLOGICAL/ONCOLOGICAL Hx Blood Disorders: No Hx AIDS: No Hx Anemia: Yes (blood transfusions) Hx Blood Transfusions: Yes Hx Blood Transfusion Reaction: No Hx Cancer: No Hx Chemotherapy: No Hx Cirrhosis: No Hx Hemophilia: No Hx Hepatitis A: No Hx Hepatitis B: No Hx Hepatitis C: No Hx Human Immunodeficiency Virus (HIV): No Hx Metastesis: No Hx Shingles: No Hx Sickle Cell Disease: No Hx Unexplained Bleeding: No Other/Comment: anemia of chronic kidney disease - INTEGUMENTARY Hx Dermatological Problems: Yes (non healing sugical wound to right ankle) Hx Basil Cell: No Hx Eczema: No Hx Melanoma: No Hx Psoriasis: No Hx Squamous Cell: No Other/Comment: inner right ankle wounddry brown had 2 skin grafts, outer back of r foot red/purple closed wound with 2 small dry red areas painful, r foot swollen +2 pitting edema, r ft cold to touch, multiple skin discolorations to both arms, skin discolorations ble, fatty tumor left back r inner ankle wound healing, thick toenails both feet - MUSCULOSKELETAL/RHEUMATOLOGICAL Hx Musculoskeletal Disorders: No Hx Arthritis: Yes Hx Back Pain: Yes Hx Degenerative Joint Disease: No Hx Falls: No Hx Fractures: No Hx Gout: No Hx Herniated Disk: No Hx Myasthenia Gravis: No Hx Osteoarthritis: Yes Hx Osteomyelitis: No Hx Osteoporosis: No Hx Rhabdomyolysis: No Hx Spinal Stenosis: No Hx Unsteady Gait: Yes (uses w/ch) Other/Comment: decreased rom right arm - GASTROINTESTINAL Hx Gastrointestinal Disorders: Yes (chronic nausea, constipation,vomiting) Hx Colostomy: No Hx Crohn's Disease: No Hx Diverticulitis: Yes Hx Gall Bladder Disease: No Hx Gastroesophageal Reflux: Yes Hx Ileostomy: No Hx Liver Failure: No Hx Pancreatitis: No HX Swallowing Problems: No Hx Ulcer: No Other/Comment: diverticulosis, poor appetite and weight loss, hiatal hernia x2 - GENITOURINARY/GYNECOLOGICAL Hx Genitourinary Disorders: No Hx Hematuria: No Hx Incontinence: No Hx Reproductive Disorders: No Hx Sexually Transmitted Disorders: No Hx Urinary Tract Infection: No Other/Comment: pt voids - PSYCHIATRIC Hx Emotional Abuse: No Hx Physical Abuse: No - SURGICAL HISTORY Hx Surgeries: Yes (tonsillectomy) Hx Amputation: No Hx Angioplasty: Yes (R external Iliac with stent, R profunda femoral angioplasty (08/2016)) Hx Appendectomy: Yes Hx Arteriovenous Shunt: Yes (Right) Hx Cardiac Catheterization: Yes Hx Section: Yes (X2) Hx Cholecystectomy: No Hx Coronary Stent: Yes Hx Gastric Bypass Surgery: No Hx Herniorrhaphy: Yes Hx Hysterectomy: No Hx Joint Replacement: No Hx Kidney Transplant: No Hx Liver Transplant: No Hx Mastectomy: No Hx Musculoskeletal Surgery: No Hx Open Heart Surgery: No Hx Orthopedic Surgery: No Hx Splenectomy: No Hx Tonsillectomy: Yes Hx Valve Replacement: No Hx Vascular Surgery: Yes Hx Vascular Access Device: Yes Other/Comment: AV graft/ Bilateral leg Arterial bipass - ANESTHESIA Hx Anesthesia: Yes Hx Anesthesia Reactions: No Hx Malignant Hyperthermia: No Meds Allergies/Adverse Reactions: Allergies Allergy/AdvReac Type Severity Reaction Status Date / Time ciprofloxacin Allergy RASH Verified 09/29/17 14:38 hydralazine Allergy RASH Verified 09/29/17 14:38 vancomycin Allergy SHORTNESS Verified 09/29/17 14:[address] dye Allergy RASH Uncoded 09/29/17 14:38 - Medications Medications: Current Medications Acetaminophen (Tylenol 325mg Tab) 650 mg PO Q4 PRN PRN Reason: Pain, Mild (1-3) Albuterol Sulfate (Albuterol 0.083% Inhal Yaneli (2.5 Mg/3 Ml) Ud) 2.5 mg IH RQ6 ANDRES Amlodipine Besylate (Norvasc) 10 mg PO DAILY ANDRES Atorvastatin Calcium (Lipitor) 20 mg PO HS ANDRES Last Admin: 09/29/17 22:26 Dose: 20 mg Carvedilol (Coreg) 12.5 mg PO BID [facility] Clonidine HCl (Catapres) 0.1 mg PO Q12H ANDRES Hydromorphone HCl (Dilaudid) 0.5 mg IVP Q4 PRN PRN Reason: Pain, severe (8-10) Last Admin: 09/29/17 22:12 Dose: 0.5 mg Levetiracetam (Keppra) 500 mg PO BID [facility] Levothyroxine Sodium (Synthroid) 75 mcg PO DAILY@0630 [facility] Ondansetron HCl (Zofran Inj) 4 mg IVP Q6 PRN PRN Reason: Nausea/Vomiting Oxycodone HCl (Oxycodone Immediate Release Tab) 2.5 mg PO Q6 PRN PRN Reason: Pain, severe (8-10) Pantoprazole Sodium (Protonix Ec Tab) 40 mg PO DAILY [facility] Tramadol HCl (Ultram) 50 mg PO Q4 PRN PRN Reason: Pain, moderate (4-7) Last Admin: 09/29/17 20:48 Dose: 50 mg Physical Exam - Constitutional Appears: Non-toxic, No Acute Distress - Eye Exam Eye Exam: Normal appearance - ENT Exam ENT Exam: Mucous Membranes Moist - Respiratory Exam Respiratory Exam: Clear to Auscultation Bilateral. absent: Respiratory Distress - Cardiovascular Exam Cardiovascular Exam: RRR, +S1, +S2. absent: Gallop, Rubs - GI/Abdominal Exam GI & Abdominal Exam: Soft. absent: Distended - Exam Exam: absent: Bladder Distension - Extremities Exam Additional comments: no leg edema; - Neurological Exam Additional comments: sedated; - Psychiatric Exam Additional comments: not agitated; - Skin Skin Exam: Normal Color, Warm Results - Vital Signs Recent Vital Signs: Last Vital Signs Temp 98.8 F 09/29/17 19:45 Pulse 88 09/29/17 22:27 Resp 48 H 09/29/17 19:45 BP 174/71 H 09/29/17 22:27 Pulse Ox 100 09/29/17 19:45 - Labs Labs: Laboratory Results - last 24 hr 09/29/17 09/29/17 09/29/17 12:55 18:48 22:10 POC Glucose (mg/dL) 111 H 84 Blood Type O POSITIVE Antibody Screen Negative Crossmatch See Detail BBK History Checked Patient has bt - Impressions Impression: Labs earlier today reviewed; H/H 9.1/30.8; K 4.0; CO2 30; Assessment & Plan (1) ESRD on hemodialysis Assessment and Plan: Stable volume and electrolyte status; last HD yesterday per routine; has had little PO intake lately; continuing with HD on TTS schedule, next for tomorrow per routine; will aim for 2L UF goal, will await morning labs to decide on dialysate potassium; Status: Chronic (2) Hypertensive CKD, ESRD on dialysis Assessment and Plan: BP fluctuating but has been overall lower than usual; BP meds were decreased during rehab stay, will continue with the same doses: -clonidine 0.1 mg q12h -coreg 12.5 mg q12h -amlodipine 10 mg daily; -holding lisinopril for now; Status: Acute (3) Anemia in CKD (chronic kidney disease) Assessment and Plan: Hgb relatively stable, still below goal of 10-11g; recent ferritin very high; will continue with EPO on qHD (20,000u); Status: Chronic (4) Chronic kidney disease-mineral and bone disorder Assessment and Plan: PTH elevated; will keep on calcitriol 0.5 mcg qTTS; hold phos binders until level > 5.0, then start sevelamer 1 tab w/ meals; Status: Chronic (5) Peripheral vascular disease Assessment and Plan: Severe complications; worsened by ESRD status; monitor for increasing calcium level with patient on calcitriol for secondary hyperparathyroidism; should avoid morphine for pain control due to issue with metabolites accumulating in ESRD (tramadol, percocet, dilaudid are safer in this regard); Status: Chronic (6) Failure to thrive Assessment and Plan: Decreased PO intake; hypoalbuminemia; will keep on nepro supplements; Status: Acute
[2017-09-30] MEDS: Albuterol 0.083% Inhal Sol (2.5 mg/3 mL) UD IH SCH ×4 (01:29→19:07)
[2017-09-30] MEDS: HYDROmorphone 1 mg/ml ISec IVP PRN ×5 (01:34→19:14)
--- NOTE | 2017-09-30 05:29 | OP ---
Copied To: Bette Harper DO Attending MD: Juan Pablo Grajeda MD PROCEDURE DATE: 09/29/2017 SURGEON: Juan Pablo Grajeda MD ASSISTANTS: Jose Enrique Hutson DO, PGY-4 and Bette Harper DO, PGY-2 ANESTHESIOLOGIST: Dr. Chely Hou ANESTHESIA: IV sedation and local nerve blocks. PREOPERATIVE DIAGNOSIS: Ischemic necrosis of right lower extremity [id number] amputation stump. POSTOPERATIVE DIAGNOSIS: Ischemic necrosis of right lower extremity [id number] amputation stump. FINDINGS: Ischemic necrosis of right lower extremity cxzvy-[id number]-maxu amputation. SPECIMEN: Right knee. BLOOD LOSS: 20 mL. DRAINS: None. COMPLICATIONS: None. DESCRIPTION OF PROCEDURE: Cheryl Jennings is a 56-year-old female with past medical history significant for end-stage renal disease, type 2 diabetes, hypertension, severe peripheral arterial disease, status post right [id number] amputation several months prior who was transferred to [facility] with a chronic non healing wound over right below-the- knee amputation site. Upon evaluation, the patient was found to have skin changes consistent with ischemic necrosis of the right lower extremity [id number] amputation site. It was determined that the patient would benefit from an enkcw-[id number]-tfky amputation. The patient was consented for the same. All surgical risks and benefits were discussed extensively with the patient and her family. The patient elected to undergo surgical intervention. In the pre-op holding area, the right lower extremity was marked. The patient was then taken into the operating room. Local anesthetic was administered by Anesthesia to the lateral cutaneous femoral, the femoral and the sciatic nerves. The patient was then placed supine and the dressing was removed. A tourniquet was applied to the proximal aspect of the right lower extremity. The right lower extremity was then prepped and draped in the usual sterile fashion. An occlusive dressing was applied to the right leg from the level of the knee and proximally. The tourniquet was then insufflated. The occlusive dressing was removed. Anterior and posterior skin flaps were outlined with the marking pen from approximately 5 to 10 cm proximal to the knee joint in the configuration of a fish mouth. A skin incision was then performed along the outline, deepened through the subcutaneous tissues using a scalpel and then electrocautery until the muscular fascia was identified. The greater saphenous vein was identified and ligated with suture ligature and then divided. The muscle groups of the anterior and medial side were divided with the electrocautery at the same level of the skin incision. The neurovascular bundle was identified on the medial aspect of the thigh. The popliteal artery and veins were isolated, doubly suture ligated and divided. The sciatic nerve was pulled, doubly ligated and divided. The posterior thigh muscles were then divided with electrocautery. Hemostasis was achieved with a combination of electrocautery and suture ligation and division for remaining larger vessels. Once the muscle groups were circumferentially divided, the periosteum was incised and elevated approximately 5 cm proximally off the femur. The femur was divided with an electric saw. The anterior aspect of the femur was bevelled, and all edges were rasped with good results. The amputation stump was irrigated copiously with saline. The stump was then inspected for hemostasis, which was achieved with electrocautery. The muscles and ligaments were approximated and sutured with a simple interrupted 0 Vicryl suture. The skin was then brought together and approximated with 2-0 Vicryl. Ophiem were then applied to the skin after approximation. A dressing was placed with 4x4 gauze, Kerlix, and an Hammad bandage. All sutures and instrument counts were declared to be correct at the end of the procedure. The patient tolerated the procedure well and was taken to the postanesthesia care unit in stable condition. Bette Harper DO Juan Pablo Grajeda MD L[facility]
--- NOTE | 2017-09-30 06:28 | OP ---
Copied To: Bette Harper DO Attending MD: Juan Pablo Grajeda MD PROCEDURE DATE: 09/29/2017 SURGEON: Juan Pablo Grajeda MD PARKING ENFORCEMENT TECHNICIAN: Jose Enrique Hutson DO, PGY-4; and Bette Harper DO, PGY-2 ANESTHESIOLOGIST: ____ Ameya. PREOPERATIVE DIAGNOSIS: Ischemic necrosis of right sieef-orn-adkc amputation stump. POSTOPERATIVE DIAGNOSIS: Ischemic necrosis of right bbrpl-eis-ydfw amputation stump. FINDINGS: Ischemic necrosis and necrotic tissue of right gswtg-iyi-miah amputation stump. SPECIMEN: Right knee. ESTIMATED BLOOD LOSS: 20 mL. DRAINS: None. COMPLICATIONS: None. DESCRIPTION OF PROCEDURE: Cheryl Jennings is a 56-year-old female with a past medical history significant for end-stage renal, diabetes, hypertension, and severe peripheral arterial disease, status post right hxsxc-skd-ahby amputation in 06/2017. The patient was transferred to [facility] with reevaluation of right xqscm-ppg-ctin amputation findings significant for ischemic necrosis of right lower extremity stump. It was determined that the patient would benefit from rvnqm-qln-dvsy amputation. The patient agreed to right kwntv-yad-vnsf amputation and was consented for the same. The patient's right lower extremity was marked preoperatively. The patient was taken into the operating room where anesthesia administered nerve blocks to the femoral nerve, sciatic nerve, and lateral cutaneous femoral nerve with good results. The patient was then given IV sedation to make her more comfortable. Preoperative antibiotics were administered. The right lower extremity was prepped and draped circumferentially in the usual sterile fashion. A timeout was completed verifying correct patient, procedure, my trip, site, and positioning prior to start of the procedure. The expected incision was then marked in a fish-mouth configuration, starting two fingerbreadths above the superior aspect of the patella. The markings were then incised. The subcutaneous tissues were carefully dissected using electrocautery. Flaps were raised from the skin edges deep to the Jason's fascia to the adductor longus and sartorius muscles. The saphenous vein was identified at the junction of sartorius and adductor muscles inferior, clamped, divided, and suture ligated. Bette Harper DO Juan Pablo Grajeda MD
[2017-09-30] MEDS: Levothyroxine 75 MCG TAB PO SCH (07:03)
[2017-09-30 07:22] LABS: HEMOGLOBIN 8.9 g/dL (12.0-16.0); MEAN CELL VOLUME 92.9 fl (81.0-99.0); MEAN CORPUSCULAR HEMOGLOBIN 26.7 pg (27.0-31.0); MEAN CORPUSCULAR HGB CONC 28.8 g/dL (33.0-37.0); RBC 3.34 Mil/uL (3.80-5.20); WHITE BLOOD COUNT 16.1 K/uL (4.8-10.8)
--- NOTE | 2017-09-30 08:15 | CP.PCM.PN ---
Subjective - Date & Time of Evaluation Date of Evaluation: 09/30/17 Time of Evaluation: 08:17 - Subjective Subjective: General surgery progress note for Dr. Eduardo Harper, PGY-2 Pt S & E at bedside 0635 Pt reports severe pain at proximal leg overnight, intermittent, with diaphoresis. Tolerating liquids. Denies N & V, F & C. Pt was screaming in pain overnight per nursing. Objective - Vital Signs/Intake and Output Vital Signs (last 24 hours): Temp Pulse Resp BP Pulse Ox 99.1 F 98 H 17 150/68 99 09/30/17 03:34 09/30/17 03:34 09/30/17 03:34 09/30/17 03:34 09/30/17 03:34 - Medications Medications: Current Medications Acetaminophen (Tylenol 325mg Tab) 650 mg PO Q4 PRN PRN Reason: Pain, Mild (1-3) Albuterol Sulfate (Albuterol 0.083% Inhal Yaneli (2.5 Mg/3 Ml) Ud) 2.5 mg IH RQ6 [facility] Last Admin: 09/30/17 07:51 Dose: 2.5 mg Amlodipine Besylate (Norvasc) 10 mg PO DAILY [facility] Atorvastatin Calcium (Lipitor) 20 mg PO HS [facility] Last Admin: 09/29/17 22:26 Dose: 20 mg Calcitriol (Rocaltrol) 0.5 mcg PO TTS [facility] Carvedilol (Coreg) 12.5 mg PO BID [facility] Clonidine HCl (Catapres) 0.1 mg PO Q12H [facility] Epoetin Tobin (Procrit) 20,000 unit IV TTS [facility] Heparin Sodium (Porcine) (Heparin) 5,000 units SC Q12 [facility] PRN Reason: Protocol Hydromorphone HCl (Dilaudid) 0.5 mg IVP Q4 PRN PRN Reason: Pain, severe (8-10) Last Admin: 09/30/17 05:42 Dose: 0.5 mg Levetiracetam (Keppra) 500 mg PO BID [facility] Levothyroxine Sodium (Synthroid) 75 mcg PO DAILY@0630 [facility] Last Admin: 09/30/17 07:03 Dose: 75 mcg Ondansetron HCl (Zofran Inj) 4 mg IVP Q6 PRN PRN Reason: Nausea/Vomiting Oxycodone HCl (Oxycodone Immediate Release Tab) 2.5 mg PO Q6 PRN PRN Reason: Pain, severe (8-10) Pantoprazole Sodium (Protonix Ec Tab) 40 mg PO DAILY [facility] Pregabalin (Lyrica) 25 mg PO BID [facility] Tramadol HCl (Ultram) 50 mg PO Q4 PRN PRN Reason: Pain, moderate (4-7) Last Admin: 09/30/17 04:15 Dose: 50 mg - Labs Labs: 09/30/17 05:30 - Constitutional Appears: Non-toxic, No Acute Distress - Head Exam Head Exam: ATRAUMATIC, NORMAL INSPECTION, NORMOCEPHALIC - Eye Exam Eye Exam: EOMI, Normal appearance - ENT Exam ENT Exam: Mucous Membranes Moist, Normal Exam - Neck Exam Neck Exam: Full ROM, Normal Inspection - Respiratory Exam Respiratory Exam: NORMAL BREATHING PATTERN. absent: Respiratory Distress Additional comments: right chest wall with port in place - Cardiovascular Exam Cardiovascular Exam: REGULAR RHYTHM, +S1, +S2 - GI/Abdominal Exam GI & Abdominal Exam: Soft. absent: Tenderness - Extremities Exam Additional comments: right AKA stump dressing in place, clean/dry/intact Sensation intact over proximal right thigh No obvious ecchymoses of hematomas over proximal right thigh - Neurological Exam Neurological Exam: Alert, Awake, CN II-XII Intact, Oriented x3 - Psychiatric Exam Psychiatric exam: Anxious, Normal Affect - Skin Skin Exam: Diaphoretic, Intact, Warm Assessment and Plan - Assessment and Plan (Free Text) Assessment: 56F POD#1 s/p Right AKA Plan: Ok to resume renal/diabetic diet Pain control PRN Added Lyrica to pain meds Wound changes as per surgery team OK for OOBTC OK for PT/OT Encourage IS use Will DW Dr. Taras Harper, PGY-2
[2017-09-30 08:19] LABS: CALCIUM 8.8 mg/dL (8.4-10.2)
[2017-09-30] MEDS: Pantoprazole 40 mg EC Tab PO SCH (08:36)
[2017-09-30] MEDS ORDERED: Epoetin Alfa 20000 UNIT/ML Inj IV SCH (09:00)
[2017-09-30] MEDS ORDERED: NIFEdipine 30 mg ER Tab PO SCH (09:00)
--- NOTE | 2017-09-30 14:23 | CP.PCM.PN ---
Subjective - Date & Time of Evaluation Date of Evaluation: 09/30/17 Time of Evaluation: 11:00 - Subjective Subjective: Patient seen and examined. Continuously moaning with pain on her phantom right leg which was amputated. Objective - Vital Signs/Intake and Output Vital Signs (last 24 hours): Temp Pulse Resp BP Pulse Ox 98.9 F 86 20 164/69 H 100 09/30/17 09:00 09/30/17 09:00 09/30/17 09:00 09/30/17 09:00 09/30/17 09:00 - Medications Medications: Current Medications Acetaminophen (Tylenol 325mg Tab) 650 mg PO Q4 PRN PRN Reason: Pain, Mild (1-3) Albuterol Sulfate (Albuterol 0.083% Inhal Yaneli (2.5 Mg/3 Ml) Ud) 2.5 mg IH RQ6 [facility] Last Admin: 09/30/17 14:17 Dose: 2.5 mg Amlodipine Besylate (Norvasc) 10 mg PO DAILY [facility] Last Admin: 09/30/17 08:54 Dose: Not Given Atorvastatin Calcium (Lipitor) 20 mg PO HS [facility] Last Admin: 09/29/17 22:26 Dose: 20 mg Calcitriol (Rocaltrol) 0.5 mcg PO TTS [facility] Last Admin: 09/30/17 08:36 Dose: 0.5 mcg Carvedilol (Coreg) 12.5 mg PO BID [facility] Last Admin: 09/30/17 08:53 Dose: Not Given Clonidine HCl (Catapres) 0.1 mg PO Q12H [facility] Last Admin: 09/30/17 08:53 Dose: Not Given Epoetin Tobin (Procrit) 20,000 unit IV TTS [facility] Heparin Sodium (Porcine) (Heparin) 5,000 units SC Q12 [facility] PRN Reason: Protocol Last Admin: 09/30/17 08:41 Dose: 5,000 units Hydromorphone HCl (Dilaudid) 0.5 mg IVP Q4 PRN PRN Reason: Pain, severe (8-10) Last Admin: 09/30/17 11:05 Dose: 0.5 mg Levetiracetam (Keppra) 500 mg PO BID [facility] Last Admin: 09/30/17 08:35 Dose: 500 mg Levothyroxine Sodium (Synthroid) 75 mcg PO DAILY@0630 [facility] Last Admin: 09/30/17 07:03 Dose: 75 mcg Ondansetron HCl (Zofran Inj) 4 mg IVP Q6 PRN PRN Reason: Nausea/Vomiting Oxycodone HCl (Oxycodone Immediate Release Tab) 2.5 mg PO Q6 PRN PRN Reason: Pain, severe (8-10) Pantoprazole Sodium (Protonix Ec Tab) 40 mg PO DAILY [facility] Last Admin: 09/30/17 08:36 Dose: 40 mg Pregabalin (Lyrica) 25 mg PO BID [facility] Last Admin: 09/30/17 08:44 Dose: 25 mg Tramadol HCl (Ultram) 50 mg PO Q4 PRN PRN Reason: Pain, moderate (4-7) Last Admin: 09/30/17 13:21 Dose: 50 mg - Labs Labs: 09/30/17 05:30 09/30/17 05:30 - Constitutional Appears: Chronically Ill (in mild distress because of phantom pain) - Head Exam Head Exam: ATRAUMATIC - Eye Exam Eye Exam: absent: Scleral icterus - ENT Exam ENT Exam: Mucous Membranes Moist - Neck Exam Neck Exam: absent: Meningismus - Respiratory Exam Respiratory Exam: absent: Rales, Rhonchi, Wheezes, Respiratory Distress - Cardiovascular Exam Cardiovascular Exam: REGULAR RHYTHM, +S1, +S2 - GI/Abdominal Exam GI & Abdominal Exam: Soft. absent: Tenderness - Rectal Exam Rectal Exam: Deferred - Extremities Exam Extremities Exam: absent: Normal Inspection (right AKA stump) - Neurological Exam Neurological Exam: Awake - Psychiatric Exam Psychiatric exam: Normal Affect - Skin Skin Exam: Dry, Intact ( ) Assessment and Plan - Assessment and Plan (Free Text) Assessment: 56 yo female with history of ESRD, DM2, HTN and PAD had right BKA at [facility] on because of non-healing wound on the right leg. She was transferred to [facility] and admitted to TCU for continued management and therapy. Right BK stump did not heal and developed ischemic necrosis. She was then discharged to [facility] and had right AKA. 1. PAD Post right AKA daily dressing and wound care management pain management 2. ESRD HD on TThS Dr Hirsch on renal consult 3. Anemia of Chronic Disease continue Procrit 20,000 units IV TThS 4. Anxiety on Ativan PRN 5. Hypothyroidism continue Levothyroxine 75 mcg PO daily TSH: 2.16 6. HTN BP stable continue Zestril/Coreg/Norvasc/Catapress 7. Seizure Keppra 500mg PO q 12hrs 8. CAD s/p coronary stent placement continue Coreg/ASA/Lipitor 9. DVT Prophylaxis Heparin 5000 units q 12hrs
[2017-09-30] MEDS ORDERED: oxyCODONE 5 mg Immediate Release Tab PO STA (16:46)
[2017-10-01] MEDS: Albuterol 0.083% Inhal Sol (2.5 mg/3 mL) UD IH SCH ×4 (01:06→19:37)
[2017-10-01] MEDS: HYDROmorphone 1 mg/ml ISec IVP PRN ×3 (03:56→12:44)
--- NOTE | 2017-10-01 08:01 | CP.PCM.PN ---
Subjective - Date & Time of Evaluation Date of Evaluation: 10/01/17 Time of Evaluation: 07:59 - Subjective Subjective: General Surgery - Dr. Grajeda Pt S&E. YI. Pt states her pain is now much better controlled but still complaining of intermittent sharp cramping pains. She denies any fevers/ chills. Leg elevated. Objective - Vital Signs/Intake and Output Vital Signs (last 24 hours): Temp Pulse Resp BP Pulse Ox 99 F 101 H 18 147/70 100 10/01/17 00:34 10/01/17 00:34 10/01/17 00:34 10/01/17 00:34 10/01/17 00:34 - Medications Medications: Current Medications Acetaminophen (Tylenol 325mg Tab) 650 mg PO Q4 PRN PRN Reason: Pain, Mild (1-3) Albuterol Sulfate (Albuterol 0.083% Inhal Yaneli (2.5 Mg/3 Ml) Ud) 2.5 mg IH RQ6 [facility] Last Admin: 10/01/17 07:13 Dose: 2.5 mg Amlodipine Besylate (Norvasc) 10 mg PO DAILY [facility] Last Admin: 09/30/17 08:54 Dose: Not Given Atorvastatin Calcium (Lipitor) 20 mg PO HS [facility] Last Admin: 09/30/17 21:57 Dose: 20 mg Calcitriol (Rocaltrol) 0.5 mcg PO TTS [facility] Last Admin: 09/30/17 08:36 Dose: 0.5 mcg Carvedilol (Coreg) 12.5 mg PO BID [facility] Last Admin: 09/30/17 17:41 Dose: Not Given Clonidine HCl (Catapres) 0.1 mg PO Q12H [facility] Last Admin: 09/30/17 21:57 Dose: 0.1 mg Epoetin Tobin (Procrit) 20,000 unit IV TTS [facility] Last Admin: 09/30/17 17:40 Dose: 20,000 unit Heparin Sodium (Porcine) (Heparin) 5,000 units SC Q12 [facility] PRN Reason: Protocol Last Admin: 09/30/17 21:57 Dose: 5,000 units Hydromorphone HCl (Dilaudid) 0.5 mg IVP Q4 PRN PRN Reason: Pain, severe (8-10) Last Admin: 10/01/17 03:56 Dose: 0.5 mg Levetiracetam (Keppra) 500 mg PO BID [facility] Last Admin: 09/30/17 17:41 Dose: 500 mg Levothyroxine Sodium (Synthroid) 75 mcg PO DAILY@0630 [facility] Last Admin: 09/30/17 07:03 Dose: 75 mcg Ondansetron HCl (Zofran Inj) 4 mg IVP Q6 PRN PRN Reason: Nausea/Vomiting Pantoprazole Sodium (Protonix Ec Tab) 40 mg PO DAILY [facility] Last Admin: 09/30/17 08:36 Dose: 40 mg Pregabalin (Lyrica) 25 mg PO BID [facility] Last Admin: 09/30/17 17:40 Dose: 25 mg Tramadol HCl (Ultram) 50 mg PO Q4 PRN PRN Reason: Pain, moderate (4-7) Last Admin: 09/30/17 13:21 Dose: 50 mg - Labs Labs: 09/30/17 05:30 09/30/17 05:30 - Constitutional Appears: No Acute Distress - Head Exam Head Exam: ATRAUMATIC, NORMAL INSPECTION, NORMOCEPHALIC - Respiratory Exam Respiratory Exam: NORMAL BREATHING PATTERN. absent: Respiratory Distress - Cardiovascular Exam Cardiovascular Exam: REGULAR RHYTHM - Extremities Exam Additional comments: R AKA dressing c/d/i - Neurological Exam Neurological Exam: Alert, Oriented x3 - Psychiatric Exam Psychiatric exam: Normal Affect, Normal Mood - Skin Skin Exam: Dry, Intact Assessment and Plan - Assessment and Plan (Free Text) Assessment: 56F POD#2 s/p Right AKA Plan: -Cont renal/diabetic diet -Pain control PRN, Cont. Lyrica -Will add muscle relaxant -Dressing changes per surgical team -OOBTC and PT/OT -Encourage IS DW Dr. Taras Canela PGY4
[2017-10-01] MEDS: Levothyroxine 75 MCG TAB PO SCH (08:21)
[2017-10-01] MEDS: Pantoprazole 40 mg EC Tab PO SCH (08:22)
--- NOTE | 2017-10-01 11:07 | CP.PCM.PN ---
Subjective - Date & Time of Evaluation Date of Evaluation: 10/01/17 Time of Evaluation: 10:00 - Subjective Subjective: Patient was seen and examined today at bedside. She is continuing to complain of pain to the right leg stump as well as phantom pain of the right leg. no other complaints currently. Objective - Vital Signs/Intake and Output Vital Signs (last 24 hours): Temp Pulse Resp BP Pulse Ox 98.6 F 104 H 20 176/73 H 96 10/01/17 08:59 10/01/17 08:59 10/01/17 08:59 10/01/17 08:59 10/01/17 08:59 - Medications Medications: Current Medications Acetaminophen (Tylenol 325mg Tab) 650 mg PO Q4 PRN PRN Reason: Pain, Mild (1-3) Albuterol Sulfate (Albuterol 0.083% Inhal Yaneli (2.5 Mg/3 Ml) Ud) 2.5 mg IH RQ6 [facility] Last Admin: 10/01/17 07:13 Dose: 2.5 mg Amlodipine Besylate (Norvasc) 10 mg PO DAILY [facility] Last Admin: 10/01/17 08:24 Dose: 10 mg Atorvastatin Calcium (Lipitor) 20 mg PO HS [facility] Last Admin: 09/30/17 21:57 Dose: 20 mg Calcitriol (Rocaltrol) 0.5 mcg PO TTS [facility] Last Admin: 09/30/17 08:36 Dose: 0.5 mcg Carvedilol (Coreg) 12.5 mg PO BID [facility] Last Admin: 10/01/17 08:24 Dose: 12.5 mg Clonidine HCl (Catapres) 0.1 mg PO Q12H [facility] Last Admin: 10/01/17 08:23 Dose: 0.1 mg Epoetin Tobin (Procrit) 20,000 unit IV TTS [facility] Last Admin: 09/30/17 17:40 Dose: 20,000 unit Heparin Sodium (Porcine) (Heparin) 5,000 units SC Q12 [facility] PRN Reason: Protocol Last Admin: 10/01/17 08:24 Dose: 5,000 units Hydromorphone HCl (Dilaudid) 0.5 mg IVP Q4 PRN PRN Reason: Pain, severe (8-10) Last Admin: 10/01/17 08:51 Dose: 0.5 mg Levetiracetam (Keppra) 500 mg PO BID [facility] Last Admin: 10/01/17 08:22 Dose: 500 mg Levothyroxine Sodium (Synthroid) 75 mcg PO DAILY@0630 [facility] Last Admin: 10/01/17 08:21 Dose: 75 mcg Ondansetron HCl (Zofran Inj) 4 mg IVP Q6 PRN PRN Reason: Nausea/Vomiting Pantoprazole Sodium (Protonix Ec Tab) 40 mg PO DAILY [facility] Last Admin: 10/01/17 08:22 Dose: 40 mg Pregabalin (Lyrica) 25 mg PO BID [facility] Last Admin: 10/01/17 08:35 Dose: 25 mg Tramadol HCl (Ultram) 50 mg PO Q4 PRN PRN Reason: Pain, moderate (4-7) Last Admin: 09/30/17 13:21 Dose: 50 mg - Labs Labs: 09/30/17 05:30 09/30/17 05:30 - Additional Findings Additional findings: Physical exam: Constitutional- cooperative, awake, alert, c/o pain Head- NCAT, PERRL Eye- PERRL, EOMI ENT- normal exam, MMM. Neck- normal inspection, supple, no JVD Respiratory- CTAB, no wheezes rales rhonchi Cardiovascular- RRR, +S1, +S2 no MRG GI/Abdominal- normal bowel sounds, soft, no mass, no hsm Skin- warm, dry Extremities Exam- Right leg stump dressing c/d/i. Other extremities with normal exam. Neurological Exam- alert, awake, oriented Psych- normal mood, normal affect Assessment and Plan - Assessment and Plan (Free Text) Plan: 56 yo female with history of ESRD, DM2, HTN and PAD had right BKA at [facility] on because of non-healing wound on the right leg. She was transferred to [facility] and admitted to TCU for continued management and therapy. Right BK stump did not heal and developed ischemic necrosis. She was then discharged to [facility] and had right AKA. 1. PAD Post right AKA daily dressing and wound care management as per Dr. Grajeda pain management, surgery added muscle relaxant 2. ESRD HD on TThS Dr Hirsch on renal consult 3. Anemia of Chronic Disease continue Procrit 20,000 units IV TThS 4. Anxiety on Ativan PRN 5. Hypothyroidism continue Levothyroxine 75 mcg PO daily TSH: 2.16 6. HTN BP stable continue Zestril/Coreg/Norvasc/Catapress 7. Seizure Keppra 500mg PO q 12hrs 8. CAD s/p coronary stent placement continue Coreg/ASA/Lipitor 9. DVT Prophylaxis Heparin 5000 units q 12hrs
[2017-10-01 17:29] VITALS: O2SAT 100
[2017-10-02] MEDS: Albuterol 0.083% Inhal Sol (2.5 mg/3 mL) UD IH SCH ×3 (01:03→13:06)
[2017-10-02] MEDS: Levothyroxine 75 MCG TAB PO SCH (05:56)
[2017-10-02 06:21] LABS: HEMOGLOBIN 10.5 g/dL (12.0-16.0); MEAN CELL VOLUME 89.5 fl (81.0-99.0); MEAN CORPUSCULAR HEMOGLOBIN 27.2 pg (27.0-31.0); MEAN CORPUSCULAR HGB CONC 30.4 g/dL (33.0-37.0); RBC 3.86 Mil/uL (3.80-5.20); RED CELL DISTRIBUTION WIDTH 19.7 % (11.5-14.5)
[2017-10-02 06:30] LABS: CALCIUM 8.8 mg/dL (8.4-10.2)
--- NOTE | 2017-10-02 07:43 | CP.PCM.PN ---
Subjective - Date & Time of Evaluation Date of Evaluation: 10/02/17 Time of Evaluation: 07:40 - Subjective Subjective: General surgery progress note for Dr. Eduardo Harper, PGY-2 Pt S & E at bedside Pt reports continued pain of right lower extremity, very uncomfortable overnight. Reports diarrhea- has decreased PO intake due to diarrhea. Denies N & V, F & C. Objective - Vital Signs/Intake and Output Vital Signs (last 24 hours): Temp Pulse Resp BP Pulse Ox 98.5 F 101 H 18 141/75 100 10/01/17 23:58 10/01/17 23:58 10/01/17 23:58 10/01/17 23:58 10/01/17 23:58 - Medications Medications: Current Medications Acetaminophen (Tylenol 325mg Tab) 650 mg PO Q4 PRN PRN Reason: Pain, Mild (1-3) Albuterol Sulfate (Albuterol 0.083% Inhal Yaneli (2.5 Mg/3 Ml) Ud) 2.5 mg IH RQ6 [facility] Last Admin: 10/02/17 07:29 Dose: 2.5 mg Amlodipine Besylate (Norvasc) 10 mg PO DAILY [facility] Last Admin: 10/01/17 08:24 Dose: 10 mg Atorvastatin Calcium (Lipitor) 20 mg PO HS [facility] Last Admin: 10/01/17 21:09 Dose: 20 mg Calcitriol (Rocaltrol) 0.5 mcg PO TTS [facility] Last Admin: 09/30/17 08:36 Dose: 0.5 mcg Carvedilol (Coreg) 12.5 mg PO BID [facility] Last Admin: 10/01/17 17:10 Dose: 12.5 mg Clonidine HCl (Catapres) 0.1 mg PO Q12H [facility] Last Admin: 10/01/17 21:10 Dose: 0.1 mg Cyclobenzaprine HCl (Flexeril) 5 mg PO TID [facility] Epoetin Tobin (Procrit) 20,000 unit IV TTS [facility] Last Admin: 09/30/17 17:40 Dose: 20,000 unit Heparin Sodium (Porcine) (Heparin) 5,000 units SC Q12 [facility] PRN Reason: Protocol Last Admin: 10/01/17 21:11 Dose: 5,000 units Hydromorphone HCl (Dilaudid) 0.5 mg IVP Q4 PRN PRN Reason: Pain, severe (8-10) Last Admin: 10/02/17 05:46 Dose: 0.5 mg Levetiracetam (Keppra) 500 mg PO BID [facility] Last Admin: 10/01/17 17:10 Dose: 500 mg Levothyroxine Sodium (Synthroid) 75 mcg PO DAILY@0630 [facility] Last Admin: 10/02/17 05:56 Dose: 75 mcg Ondansetron HCl (Zofran Inj) 4 mg IVP Q6 PRN PRN Reason: Nausea/Vomiting Last Admin: 10/01/17 12:54 Dose: 4 mg Pantoprazole Sodium (Protonix Ec Tab) 40 mg PO DAILY [facility] Last Admin: 10/01/17 08:22 Dose: 40 mg Pregabalin (Lyrica) 25 mg PO BID [facility] Last Admin: 10/01/17 17:10 Dose: 25 mg - Labs Labs: 10/02/17 05:35 10/02/17 05:35 - Constitutional Appears: Non-toxic, No Acute Distress - Head Exam Head Exam: ATRAUMATIC, NORMAL INSPECTION, NORMOCEPHALIC - Eye Exam Eye Exam: EOMI, Normal appearance - ENT Exam ENT Exam: Mucous Membranes Moist, Normal Exam - Neck Exam Neck Exam: Full ROM, Normal Inspection - Respiratory Exam Respiratory Exam: NORMAL BREATHING PATTERN - Cardiovascular Exam Cardiovascular Exam: REGULAR RHYTHM, +S1, +S2 - GI/Abdominal Exam GI & Abdominal Exam: Soft. absent: Tenderness - Extremities Exam Additional comments: Right AKA dressing -clean/dry/intact - Neurological Exam Neurological Exam: Alert, Awake, CN II-XII Intact, Oriented x3 - Psychiatric Exam Psychiatric exam: Anxious, Normal Affect - Skin Skin Exam: Dry, Intact, Normal Color, Warm Assessment and Plan - Assessment and Plan (Free Text) Assessment: 56F POD#3 s/p right AKA Plan: Flexeril D/c'd ultram Cont Dilaudid, tylenol, Lyrica OOBTC Encourage IS use Activity as tolerated Will DW attending Meredith, PGY-2
[2017-10-02 08:10] VITALS: RESP 20
--- NOTE | 2017-10-02 09:24 | PN ---
Copied To: Juan Pablo Grajeda MD Attending MD: Juan Pablo Grajeda MD DATE: 10/01/2017 SUBJECTIVE: is doing well. The vital signs are stable. She is doing much better. Juan Pablo Grajeda MD
[2017-10-02] MEDS: Pantoprazole 40 mg EC Tab PO SCH (10:00)
--- NOTE | 2017-10-02 11:31 | CP.PCM.PN ---
Subjective - Date & Time of Evaluation Date of Evaluation: 10/02/17 Time of Evaluation: 11:30 - Subjective Subjective: Patient seen and examined at bedside. She is still c/o significant amount of phantom pain to the amputated right leg. C/o some loose stools overnight. Denies n/v/f/c/headache. Objective - Vital Signs/Intake and Output Vital Signs (last 24 hours): Temp Pulse Resp BP Pulse Ox 99.0 F 99 H 20 150/85 100 10/02/17 08:09 10/02/17 08:09 10/02/17 08:09 10/02/17 08:09 10/02/17 08:09 - Medications Medications: Current Medications Acetaminophen (Tylenol 325mg Tab) 650 mg PO Q4 PRN PRN Reason: Pain, Mild (1-3) Albuterol Sulfate (Albuterol 0.083% Inhal Yaneli (2.5 Mg/3 Ml) Ud) 2.5 mg IH RQ6 [facility] Last Admin: 10/02/17 07:29 Dose: 2.5 mg Amlodipine Besylate (Norvasc) 10 mg PO DAILY [facility] Last Admin: 10/01/17 08:24 Dose: 10 mg Atorvastatin Calcium (Lipitor) 20 mg PO HS [facility] Last Admin: 10/01/17 21:09 Dose: 20 mg Calcitriol (Rocaltrol) 0.5 mcg PO TTS [facility] Last Admin: 09/30/17 08:36 Dose: 0.5 mcg Carvedilol (Coreg) 12.5 mg PO BID [facility] Last Admin: 10/01/17 17:10 Dose: 12.5 mg Clonidine HCl (Catapres) 0.2 mg PO Q12H [facility] Cyclobenzaprine HCl (Flexeril) 5 mg PO TID [facility] Epoetin Tobin (Procrit) 20,000 unit IV TTS [facility] Last Admin: 09/30/17 17:40 Dose: 20,000 unit Heparin Sodium (Porcine) (Heparin) 5,000 units SC Q12 [facility] PRN Reason: Protocol Last Admin: 10/01/17 21:11 Dose: 5,000 units Hydromorphone HCl (Dilaudid) 0.5 mg IVP Q4 PRN PRN Reason: Pain, severe (8-10) Last Admin: 10/02/17 05:46 Dose: 0.5 mg Levetiracetam (Keppra) 500 mg PO BID [facility] Last Admin: 10/01/17 17:10 Dose: 500 mg Levothyroxine Sodium (Synthroid) 75 mcg PO DAILY@0630 [facility] Last Admin: 10/02/17 05:56 Dose: 75 mcg Ondansetron HCl (Zofran Inj) 4 mg IVP Q6 PRN PRN Reason: Nausea/Vomiting Last Admin: 10/01/17 12:54 Dose: 4 mg Pantoprazole Sodium (Protonix Ec Tab) 40 mg PO DAILY [facility] Last Admin: 10/01/17 08:22 Dose: 40 mg Pregabalin (Lyrica) 50 mg PO BID [facility] - Labs Labs: 10/02/17 05:35 10/02/17 05:35 - Additional Findings Additional findings: Physical exam: Constitutional- cooperative, awake, alert, c/o pain, mildly diaphoretic this morning Head- NCAT, PERRL Eye- PERRL, EOMI ENT- normal exam, MMM. Neck- normal inspection, supple, no JVD Respiratory- CTAB, no wheezes rales rhonchi Cardiovascular- RRR, +S1, +S2 no MRG GI/Abdominal- normal bowel sounds, soft, no mass, no hsm Skin- warm, dry Extremities Exam- Right leg stump dressing c/d/i. Other extremities with normal exam. Neurological Exam- alert, awake, oriented Psych- normal mood, normal affect Assessment and Plan - Assessment and Plan (Free Text) Plan: 56 yo female with history of ESRD, DM2, HTN and PAD had right BKA at [facility] on because of non-healing wound on the right leg. She was transferred to [facility] and admitted to TCU for continued management and therapy. Right BK stump did not heal and developed ischemic necrosis. She was then discharged to [facility] and had right AKA. 1. PAD Post right AKA post op day #3 daily dressing and wound care management as per Dr. Taras Mathis Lyrica increased to 50 mg po BID Dilaudid prn Encourage incentive spirometer use 2. ESRD HD on TThS Dr Hirsch on renal consult 3. Anemia of Chronic Disease continue Procrit 20,000 units IV TThS 4. Anxiety on Ativan PRN 5. Hypothyroidism continue Levothyroxine 75 mcg PO daily TSH: 2.16 6. HTN BP stable continue Zestril/Coreg/Norvasc/Catapress 7. Seizure Keppra 500mg PO q 12hrs 8. CAD s/p coronary stent placement continue Coreg/ASA/Lipitor 9. DVT Prophylaxis Heparin 5000 units q 12hrs Disposition: likely acute rehab once improved
--- NOTE | 2017-10-02 15:02 | CP.PCM.DIS ---
Provider - Provider Date of Admission: 09/29/17 19:10 Attending physician: Herbert Santamaria MD Primary care physician: Jose Lanza MD Consults: Dr. Grajeda- General surgery Dr. Hirsch- nephrology Wound care Time Spent in preparation of Discharge (in minutes): 15 Hospital Course - Lab Results Lab Results: Most Recent Lab Values WBC 14.0 K/uL (4.8-10.8) H 10/02/17 05:35 RBC 3.86 Mil/uL (3.80-5.20) 10/02/17 05:35 Hgb 10.5 g/dL (12.0-16.0) L 10/02/17 05:35 Hct 34.6 % (34.0-47.0) 10/02/17 05:35 MCV 89.5 fl (81.0-99.0) D 10/02/17 05:35 MCH 27.2 pg (27.0-31.0) 10/02/17 05:35 MCHC 30.4 g/dL (33.0-37.0) L 10/02/17 05:35 RDW 19.7 % (11.5-14.5) H 10/02/17 05:35 Plt Count 472 K/uL (130-400) H 10/02/17 05:35 Sodium 138 mmol/l (132-148) 10/02/17 05:35 Potassium 4.0 MMOL/L (3.6-5.0) 10/02/17 05:35 Chloride 96 mmol/L (98-107) L 10/02/17 05:35 Carbon Dioxide 27 mmol/L (22-30) 10/02/17 05:35 Anion Gap 19 (10-20) 10/02/17 05:35 BUN 62 mg/dl (7-17) H 10/02/17 05:35 Creatinine 4.8 mg/dl (0.7-1.2) H 10/02/17 05:35 Est GFR ( Amer) 11 10/02/17 05:35 Est GFR (Non-Af Amer) 9 10/02/17 05:35 POC Glucose (mg/dL) 84 mg/dL (65-110) 09/29/17 22:10 Random Glucose 145 mg/dL (65-105) H 10/02/17 05:35 Calcium 8.8 mg/dL (8.4-10.2) 10/02/17 05:35 Blood Type O POSITIVE 09/29/17 12:55 Antibody Screen Negative 09/29/17 12:55 Crossmatch See Detail 09/29/17 12:55 BBK History Checked Patient has bt 09/29/17 12:55 - Hospital Course Hospital Course: 56 yo female with history of ESRD, DM2, HTN and PAD had right BKA at [facility] on because of non-healing wound on the right leg. She was transferred to [facility] and admitted to TCU for continued management and therapy. Right BK stump did not heal and developed ischemic necrosis. She was then discharged to [facility] and had right AKA. Subsequently admitted to med/surg for post operative care and monitoring. Now being discharged to acute rehab for further PT/OT. 1. PAD Post right AKA post op day #3 daily dressing and wound care management as per Dr. Grajeda Flexeril Lyrica increased to 50 mg po BID Dilaudid prn Encourage incentive spirometer use D/c to acute rehab today 2. ESRD HD on TThS Dr Hirsch on renal consult 3. Anemia of Chronic Disease continue Procrit 20,000 units IV TThS 4. Anxiety on Ativan PRN 5. Hypothyroidism continue Levothyroxine 75 mcg PO daily TSH: 2.16 6. HTN BP stable continue Zestril/Coreg/Norvasc/Catapress 7. Seizure Keppra 500mg PO q 12hrs 8. CAD s/p coronary stent placement continue Coreg/ASA/Lipitor 9. DVT Prophylaxis Heparin 5000 units q 12hrs Discharge Exam - Head Exam Head Exam: ATRAUMATIC, NORMAL INSPECTION, NORMOCEPHALIC - Additional Findings Additional findings: Physical exam: Constitutional- cooperative, awake, alert, c/o pain, mildly diaphoretic this morning Head- NCAT, PERRL Eye- PERRL, EOMI ENT- normal exam, MMM. Neck- normal inspection, supple, no JVD Respiratory- CTAB, no wheezes rales rhonchi Cardiovascular- RRR, +S1, +S2 no MRG GI/Abdominal- normal bowel sounds, soft, no mass, no hsm Skin- warm, dry Extremities Exam- Right leg stump dressing c/d/i. Other extremities with normal exam. Neurological Exam- alert, awake, oriented Psych- normal mood, normal affect Discharge Plan - Follow Up Plan Condition: GOOD Disposition: REHAB FACILITY/REHAB UNIT Referrals: Jose Lanza MD [Primary Care Provider] -
[2017-10-02 15:45] VITALS: BP 117/64; PULSE 84; TEMP 97.6
--- NOTE | 2017-10-02 16:32 | PQF ---
PROVIDER RESPONSE TEXT: Patient has had stage II decubitus ulcer present since admission. REVIEWER QUERY TEXT: Pressure Ulcer Type 3 queries: Pressure ulcer is documented in the Medical Record. Please specify (1) location,(2) present on admi ssion status and (3) stage: if in agreement -POA status of each pressure ulcer: -- Not present on admission -- Present on admission -- Other -- Clinically unable to determine -- Unknown OR: Disagree 09/29 Nursing Pressure Ulcer Assessment: Sacrum: Partial thickness loss of dermis presenting as a sha llow open ulcer 10/01 Wound RN: Stage 2 PI on sacrum H and P: Decubitus Ulcer Present: No Stage of each pressure ulcer (National Pressure Ulcer Advisory Panel definitions): -- Stage I: Intact skin with non-blanchable redness of a localized area -- Stage II: Partial thickness skin loss involving dermis with a shallow open ulcer or an open serum -filled blister -- Stage III: Full thickness skin loss involving damage or necrosis of subcutaneous tissue -- Stage IV: Full thickness skin loss with exposed bone, tendon or muscle -- Unstageable: Full thickness tissue loss in which the base of the ulcer is covered by slough and/o r eschar in the wound bed The patient's Clinical Indicators include: XX Query created by: Anna Marie Palomo on 10/02/2017 1:11 PM Electronically signed by: Xavier Shine MD 10/02/2017 4:29 PM
--- NOTE | 2017-10-02 23:09 | CP.PCM.PN ---
Objective - Vital Signs/Intake and Output Vital Signs (last 24 hours): Temp Pulse Resp BP Pulse Ox 97.6 F 84 20 117/64 100 10/02/17 15:44 10/02/17 15:44 10/02/17 15:44 10/02/17 15:44 10/02/17 15:44 - Labs Labs: 10/02/17 05:35 10/02/17 05:35 Assessment and Plan (1) ESRD on hemodialysis Status: Chronic (2) Hypertensive CKD, ESRD on dialysis Status: Acute (3) Anemia in CKD (chronic kidney disease) Status: Chronic (4) Chronic kidney disease-mineral and bone disorder Status: Chronic (5) Peripheral vascular disease Status: Chronic (6) Failure to thrive Status: Acute
== END 2017-10-02 18:50 | DRG 474 ==
LOC: H.OPSURG 10:54 → H.MEDSURG1 19:10
PROC: 0Y6C0Z1 Detachment at Right Upper Leg, High, Open Approach (ICD-10-PCS; principal; 2017-09-29 13:00)
PROC: 3E0T3BZ Introduction of Anesthetic Agent into Peripheral Nerves and Plexi, Percutaneous Approach (ICD-10-PCS; 2017-09-29 13:00)
PROC: 3E0T3BZ Introduction of Anesthetic Agent into Peripheral Nerves and Plexi, Percutaneous Approach (ICD-10-PCS; 2017-09-29 13:00)
DX: T87.53 Necrosis of amputation stump, right lower extremity (principal); N18.6 End stage renal disease; I13.2 Hypertensive heart and chronic kidney disease with heart failure and with stage 5 chronic kidney disease, or end stage renal disease; N25.81 Secondary hyperparathyroidism of renal origin; I50.32 Chronic diastolic (congestive) heart failure; R62.7 Adult failure to thrive; Y83.5 Amputation of limb(s) as the cause of abnormal reaction of the patient, or of later complication, without mention of misadventure at the time of the procedure; Z86.73 Personal history of transient ischemic attack (TIA), and cerebral infarction without residual deficits; D63.1 Anemia in chronic kidney disease; Z88.1 Allergy status to other antibiotic agents; Z88.3 Allergy status to other anti-infective agents; Z91.041 Radiographic dye allergy status; E11.22 Type 2 diabetes mellitus with diabetic chronic kidney disease; E11.51 Type 2 diabetes mellitus with diabetic peripheral angiopathy without gangrene; E78.00 Pure hypercholesterolemia, unspecified; M89.9 Disorder of bone, unspecified; J43.9 Emphysema, unspecified; I25.10 Atherosclerotic heart disease of native coronary artery without angina pectoris; E88.09 Other disorders of plasma-protein metabolism, not elsewhere classified; Z87.891 Personal history of nicotine dependence; E03.9 Hypothyroidism, unspecified; F41.9 Anxiety disorder, unspecified; Z95.5 Presence of coronary angioplasty implant and graft; G54.6 Phantom limb syndrome with pain; I25.2 Old myocardial infarction; Z99.2 Dependence on renal dialysis; L89.152 Pressure ulcer of sacral region, stage 2; R56.9 Unspecified convulsions; R19.7 Diarrhea, unspecified

== ENCOUNTER 2017-10-02 17:53 | Inpatient (IN) | payer MEDICARE ==
[2017-10-02 19:22] VITALS: BMI 19.5
[2017-10-02] MEDS: Albuterol 0.083% Inhal Sol (2.5 mg/3 mL) UD IH SCH (21:49)
[2017-10-03] MEDS: Albuterol 0.083% Inhal Sol (2.5 mg/3 mL) UD IH SCH ×4 (01:14→19:58)
[2017-10-03] MEDS: Levothyroxine 75 MCG TAB PO SCH (06:00)
[2017-10-03 06:44] LABS: HEMOGLOBIN 9.5 g/dL (12.0-16.0); MEAN CORPUSCULAR HGB CONC 30.3 g/dL (33.0-37.0); RBC 3.54 Mil/uL (3.80-5.20); RED CELL DISTRIBUTION WIDTH 20.2 % (11.5-14.5)
[2017-10-03 07:01] LABS: CALCIUM 8.4 mg/dL (8.4-10.2)
[2017-10-03] MEDS: Pantoprazole 40 mg EC Tab PO SCH (08:08)
--- NOTE | 2017-10-03 08:16 | CP.PCM.PN ---
Subjective - Date & Time of Evaluation Date of Evaluation: 10/03/17 Time of Evaluation: 08:14 - Subjective Subjective: General surgery progress note for Dr. Eduardo Harper, PGY-2 Pt S & E at bedside at 0700 Pt sleeping at bedside, arousable. Reports pain of R AKA site. Continues with poor PO intake due to Diarrhea. Denies F & C. Objective - Vital Signs/Intake and Output Vital Signs (last 24 hours): Temp Pulse Resp BP Pulse Ox 97 F L 98 H 20 147/67 100 10/02/17 19:10 10/03/17 08:06 10/02/17 23:00 10/03/17 08:08 10/02/17 23:00 - Medications Medications: Current Medications Acetaminophen (Tylenol 325mg Tab) 650 mg PO Q4 PRN PRN Reason: Pain, Mild (1-3) Albuterol Sulfate (Albuterol 0.083% Inhal Yaneli (2.5 Mg/3 Ml) Ud) 2.5 mg IH RQ6 [facility] Last Admin: 10/03/17 07:07 Dose: 2.5 mg Amlodipine Besylate (Norvasc) 10 mg PO DAILY [facility] Last Admin: 10/03/17 08:07 Dose: 10 mg Atorvastatin Calcium (Lipitor) 20 mg PO HS [facility] Last Admin: 10/02/17 21:39 Dose: 20 mg Calcitriol (Rocaltrol) 0.5 mcg PO TTS [facility] Last Admin: 10/03/17 08:08 Dose: 0.5 mcg Carvedilol (Coreg) 12.5 mg PO BID [facility] Last Admin: 10/03/17 08:06 Dose: 12.5 mg Clonidine HCl (Catapres) 0.2 mg PO Q12 [facility] Last Admin: 10/03/17 08:08 Dose: 0.2 mg Cyclobenzaprine HCl (Flexeril) 5 mg PO TID [facility] Last Admin: 10/03/17 08:05 Dose: 5 mg Epoetin Tobin (Procrit) 20,000 unit IV TTS [facility] Heparin Sodium (Porcine) (Heparin) 5,000 units SC Q12 [facility] PRN Reason: Protocol Last Admin: 10/03/17 08:08 Dose: 5,000 units Hydromorphone HCl (Dilaudid) 2 mg PO Q6 PRN PRN Reason: Pain, severe (8-10) Levetiracetam (Keppra) 500 mg PO BID [facility] Last Admin: 10/03/17 08:07 Dose: 500 mg Levothyroxine Sodium (Synthroid) 75 mcg PO DAILY@0630 [facility] Last Admin: 10/03/17 06:00 Dose: 75 mcg Ondansetron HCl (Zofran Inj) 4 mg IVP Q6 PRN PRN Reason: Nausea/Vomiting Pantoprazole Sodium (Protonix Ec Tab) 40 mg PO DAILY [facility] Last Admin: 10/03/17 08:08 Dose: 40 mg Pregabalin (Lyrica) 50 mg PO BID [facility] Last Admin: 10/03/17 08:05 Dose: 50 mg Tramadol HCl (Ultram) 50 mg PO Q6 PRN PRN Reason: Pain, moderate (4-7) Last Admin: 10/03/17 08:03 Dose: 50 mg - Labs Labs: 10/03/17 05:20 10/03/17 05:20 - Constitutional Appears: Non-toxic, No Acute Distress - Head Exam Head Exam: ATRAUMATIC, NORMAL INSPECTION, NORMOCEPHALIC - Eye Exam Eye Exam: EOMI, Normal appearance - ENT Exam ENT Exam: Mucous Membranes Moist, Normal Exam - Neck Exam Neck Exam: Full ROM, Normal Inspection - Respiratory Exam Respiratory Exam: NORMAL BREATHING PATTERN - Cardiovascular Exam Cardiovascular Exam: REGULAR RHYTHM, +S1, +S2 - GI/Abdominal Exam GI & Abdominal Exam: Soft. absent: Tenderness - Extremities Exam Extremities Exam: Tenderness (Right thigh). absent: Normal Inspection (Right AKA with dressing in place- clean/dry/intact) - Neurological Exam Neurological Exam: absent: Awake (arousable to verbal stimuli) - Psychiatric Exam Psychiatric exam: Normal Affect, Normal Mood - Skin Skin Exam: Dry, Intact, Normal Color, Warm Assessment and Plan - Assessment and Plan (Free Text) Assessment: 56F POD#4 s/p R AKA with uncontrolled pain Plan: Recommend pain specialty consult for on going pain needs Pain control PRN Encourage IS use OOBTC Activity as tolerated PT/OT Do not remove surgical dressing Will DW attending Meredith, PGY-2
--- NOTE | 2017-10-03 12:26 | CP.PCM.CON ---
History of Present Illness - History of Present Illness History of Present Illness: 56 year old female with pmh pf ESRD, CAD, PVD, HTN, hypothyroidism, seizure disorder POD #4 s/p R AKA. Pain service consulted for management of poorly controlled post-op and phantom limb pain. When evaluated in AM patient was noted to be lethargic with slurred speech and intermittently closed her eyes throughout the interview. She reports feeling tired however experiencing 10/10 pain despite her fatigue. Her pain is located in her right groin and amputation stump. In addition she complains of right distal limb phantom like pain which she describes as feeling as if there pressure/tightness around her toes and heal. The only treatment that relieves her pain is dilaudid. Patient has history of taking high doses of dilaudid at home prior to her first R BKA at [facility]. For 1 year she reports taking PO dilaudid 4 mg q4h. About one week before her first amputation she increased the dose to 8 mg q4h which she reports she did independent of her doctor's recommendation. Upon consult request I was also informed by the RN that the patient was transferred from [facility] on high doses of dilaudid. Due lethargy she previously required administration of narcan. Patient was noted to receive a right popliteal block in OR 09/29 on the day of her R AKA however she denies that she received any pain control from the block. Case discussed with pain anesthesiologist Dr Siegel, he will follow up with additional recommendations. Past Patient History - Infectious Disease Hx of Infectious Diseases: None - Tetanus Immunizations Tetanus Immunization: Unknown - Past Medical History & Family History Past Medical History?: Yes - Past Social History Smoking Status: Former Smoker - CARDIAC Hx Cardiac Disorders: Yes Hx Congestive Heart Failure: Yes Hx Hypertension: Yes Hx Peripheral Vascular Disease: Yes Other/Comment: - PAD. - Right carotid angioplasty + stent placement. - Hyperlipidemia - PULMONARY Hx Chronic Obstructive Pulmonary Disease (COPD): Yes (On O2 3L at home) - NEUROLOGICAL HX Cerebrovascular Accident: Yes (Multiple CVA's) Hx Seizures: Yes - HEENT Hx HEENT Problems: Yes Hx Deafness: Yes - RENAL Hx Chronic Kidney Disease: Yes (ESRD) Hx Dialysis: Yes Type of Dialysis Access: Right subclavian hemodialysis catheter Date of Last Dialysis Treatment: 09/30/17 Other/Comment: - Hemodialysis -[place] [facility] - ENDOCRINE/METABOLIC Hx Endocrine Disorders: (Patient denies being Diabetic) Hx Hypothyroidism: Yes - HEMATOLOGICAL/ONCOLOGICAL Hx AIDS: No Hx Anemia: Yes (Anemia of chronic kidney disease) Hx Blood Transfusions: Yes Hx Blood Transfusion Reaction: No Hx Human Immunodeficiency Virus (HIV): No - INTEGUMENTARY Hx Dermatological Problems: Yes (dark discoloration on sacral area) - MUSCULOSKELETAL/RHEUMATOLOGICAL Hx Falls: Yes - GASTROINTESTINAL Hx Gastrointestinal Disorders: Yes Hx Constipation: Yes ("Old condition for 10 years") Hx Gastritis: Yes Hx Gastroesophageal Reflux: Yes Other/Comment: - Diverticulosis - GENITOURINARY/GYNECOLOGICAL Hx Genitourinary Disorders: No Hx Hematuria: No Hx Incontinence: No Hx Reproductive Disorders: No Hx Sexually Transmitted Disorders: No Hx Urinary Tract Infection: No Other/Comment: pt voids - PSYCHIATRIC Hx Anxiety: Yes Hx Depression: Yes Hx Hallucinations: Yes Hx Substance Use: No - SURGICAL HISTORY Hx Surgeries: Yes Hx Amputation: Yes (Right BKA (09/14/17), Right AKA (09/29/17)) Hx Angioplasty: Yes (R external Iiiac with stent, R profunda femoral angioplasty (08/2016)) Hx Appendectomy: Yes Hx Arteriovenous Shunt: Yes (Right) Hx Cardiac Catheterization: Yes Hx Section: Yes Hx Coronary Stent: Yes Hx Herniorrhaphy: Yes Hx Tonsillectomy: Yes Hx Vascular Surgery: Yes Hx Vascular Access Device: Yes Other/Comment: - AV graft / bilateral leg arterial bypass - ANESTHESIA Hx Anesthesia: Yes Hx Anesthesia Reactions: No Hx Malignant Hyperthermia: No Has any member of the family had a problem w/ anesthesia?: No Meds Allergies/Adverse Reactions: Allergies Allergy/AdvReac Type Severity Reaction Status Date / Time ciprofloxacin Allergy RASH Verified 10/02/17 19:21 hydralazine Allergy RASH Verified 10/02/17 19:21 vancomycin Allergy SHORTNESS Verified 10/02/17 19:[address] dye Allergy RASH Uncoded 10/02/17 19:21 - Medications Medications: Current Medications Acetaminophen (Tylenol 325mg Tab) 650 mg PO Q4 PRN PRN Reason: Pain, Mild (1-3) Albuterol Sulfate (Albuterol 0.083% Inhal Yaneli (2.5 Mg/3 Ml) Ud) 2.5 mg IH RQ6 [facility] Last Admin: 10/03/17 07:07 Dose: 2.5 mg Amlodipine Besylate (Norvasc) 10 mg PO DAILY [facility] Last Admin: 10/03/17 08:07 Dose: 10 mg Atorvastatin Calcium (Lipitor) 20 mg PO HS [facility] Last Admin: 10/02/17 21:39 Dose: 20 mg Calcitriol (Rocaltrol) 0.5 mcg PO TTS [facility] Last Admin: 10/03/17 08:08 Dose: 0.5 mcg Carvedilol (Coreg) 12.5 mg PO BID [facility] Last Admin: 10/03/17 08:06 Dose: 12.5 mg Clonidine HCl (Catapres) 0.2 mg PO Q12 [facility] Last Admin: 10/03/17 08:08 Dose: 0.2 mg Cyclobenzaprine HCl (Flexeril) 5 mg PO TID [facility] Last Admin: 10/03/17 08:05 Dose: 5 mg Epoetin Tobin (Procrit) 20,000 unit IV TTS [facility] Heparin Sodium (Porcine) (Heparin) 5,000 units SC Q12 [facility] PRN Reason: Protocol Last Admin: 10/03/17 08:08 Dose: 5,000 units Hydromorphone HCl (Dilaudid) 2 mg PO Q6 PRN PRN Reason: Pain, severe (8-10) Levetiracetam (Keppra) 500 mg PO BID [facility] Last Admin: 10/03/17 08:07 Dose: 500 mg Levothyroxine Sodium (Synthroid) 75 mcg PO DAILY@0630 [facility] Last Admin: 10/03/17 06:00 Dose: 75 mcg Ondansetron HCl (Zofran Inj) 4 mg IVP Q6 PRN PRN Reason: Nausea/Vomiting Pantoprazole Sodium (Protonix Ec Tab) 40 mg PO DAILY [facility] Last Admin: 10/03/17 08:08 Dose: 40 mg Pregabalin (Lyrica) 50 mg PO BID [facility] Last Admin: 10/03/17 08:05 Dose: 50 mg Tramadol HCl (Ultram) 50 mg PO Q6 PRN PRN Reason: Pain, moderate (4-7) Last Admin: 10/03/17 08:03 Dose: 50 mg Results - Vital Signs Recent Vital Signs: Last Vital Signs Temp 98.0 F 10/03/17 08:15 Pulse 98 H 10/03/17 08:15 Resp 19 10/03/17 08:15 BP 147/67 10/03/17 08:15 Pulse Ox 97 10/03/17 08:15 - Labs Result Diagrams: 10/03/17 05:20 10/03/17 05:20 Labs: Laboratory Results - last 24 hr 10/03/17 10/03/17 05:20 05:20 WBC 15.0 H RBC 3.54 L Hgb 9.5 L Hct 31.5 L MCV 89.0 MCH 27.0 MCHC 30.3 L RDW 20.2 H Plt Count 468 H Sodium 135 Potassium 4.6 Chloride 97 L Carbon Dioxide 19 L Anion Gap 24 H BUN 83 H Creatinine 6.1 H Est GFR ( Amer) 9 Est GFR (Non-Af Amer) 7 Random Glucose 97 Calcium 8.4
--- NOTE | 2017-10-03 15:01 | CP.PCM.HP ---
History of Present Illness - History of Present Illness History of Present Illness: 56 yo female with history of ESRD, DM2, HTN and PAD had right BKA at [facility] [place] because of non-healing wound on the right leg. She was transferred to [facility] and admitted to TCU for continued management and therapy. Right BK stump did not heal and developed ischemic necrosis. She was discharged to [facility] and had right AKA on 09/29/17. Patient tolerated procedure but had difficulty tolerating phantom pain of the right leg. On 10/02/17 she was transferred back to Acute Rehab to continue her therapy and further management of her condition. Present on Admission - Present on Admission Any Indicators Present on Admission: No History of DVT/PE: No History of Uncontrolled Diabetes: No Urinary Catheter: No Decubitus Ulcer Present: No Review of Systems - Review of Systems All systems: reviewed and no additional remarkable complaints except (aside from those mentioned above, 12 point system review were negative by me) Past Patient History - Infectious Disease Hx of Infectious Diseases: None - Tetanus Immunizations Tetanus Immunization: Unknown - Past Medical History & Family History Past Medical History?: Yes - Past Social History Smoking Status: Former Smoker Chewing Tobacco Use: No Cigar Use: No Alcohol: None - CARDIAC Hx Cardiac Disorders: Yes Hx Congestive Heart Failure: Yes Hx Hypercholesterolemia: Yes Hx Hypertension: Yes - PULMONARY Hx Chronic Obstructive Pulmonary Disease (COPD): Yes - NEUROLOGICAL HX Cerebrovascular Accident: Yes - HEENT Hx HEENT Problems: Yes Hx Deafness: Yes - RENAL Hx Renal Failure: Yes - ENDOCRINE/METABOLIC Hx Diabetes Mellitus Type 2: Yes - HEMATOLOGICAL/ONCOLOGICAL Hx AIDS: No Hx Anemia: Yes (Anemia of chronic kidney disease) Hx Blood Transfusions: Yes Hx Blood Transfusion Reaction: No Hx Human Immunodeficiency Virus (HIV): No - INTEGUMENTARY Hx Dermatological Problems: Yes (dark discoloration on sacral area) - MUSCULOSKELETAL/RHEUMATOLOGICAL Hx Falls: Yes - GASTROINTESTINAL Hx Gastrointestinal Disorders: Yes Hx Constipation: Yes ("Old condition for 10 years") Hx Gastritis: Yes Hx Gastroesophageal Reflux: Yes Other/Comment: - Diverticulosis - GENITOURINARY/GYNECOLOGICAL Hx Genitourinary Disorders: No Hx Hematuria: No Hx Incontinence: No Hx Reproductive Disorders: No Hx Sexually Transmitted Disorders: No Hx Urinary Tract Infection: No Other/Comment: pt voids - PSYCHIATRIC Hx Anxiety: Yes Hx Depression: Yes Hx Hallucinations: Yes Hx Substance Use: No - SURGICAL HISTORY Hx Surgeries: Yes Hx Amputation: Yes (Right BKA (09/14/17), Right AKA (09/29/17)) Hx Angioplasty: Yes (R external Iiiac with stent, R profunda femoral angioplasty (08/2016)) Hx Appendectomy: Yes Hx Arteriovenous Shunt: Yes (Right) Hx Cardiac Catheterization: Yes Hx Section: Yes Hx Coronary Stent: Yes Hx Herniorrhaphy: Yes Hx Tonsillectomy: Yes Hx Vascular Surgery: Yes Hx Vascular Access Device: Yes Other/Comment: - AV graft / bilateral leg arterial bypass - ANESTHESIA Hx Anesthesia: Yes Hx Anesthesia Reactions: No Hx Malignant Hyperthermia: No Has any member of the family had a problem w/ anesthesia?: No Meds Allergies/Adverse Reactions: Allergies Allergy/AdvReac Type Severity Reaction Status Date / Time ciprofloxacin Allergy RASH Verified 10/02/17 19:21 hydralazine Allergy RASH Verified 10/02/17 19:21 vancomycin Allergy SHORTNESS Verified 10/02/17 19:[address] dye Allergy RASH Uncoded 10/02/17 19:21 Physical Exam - Constitutional Appears: No Acute Distress - Head Exam Head Exam: ATRAUMATIC - Eye Exam Eye Exam: absent: Scleral icterus - ENT Exam ENT Exam: Mucous Membranes Moist - Neck Exam Neck exam: Negative for: Meningismus - Respiratory Exam Respiratory Exam: absent: Rales, Rhonchi, Wheezes, Respiratory Distress - Cardiovascular Exam Cardiovascular Exam: REGULAR RHYTHM, +S1, +S2 - GI/Abdominal Exam GI & Abdominal Exam: Soft. absent: Tenderness - Rectal Exam Rectal Exam: Deferred - Extremities Exam Extremities exam: Negative for: normal inspection (right AKA dressing clean and intact) - Neurological Exam Neurological exam: Alert, Oriented x3 - Psychiatric Exam Psychiatric exam: Normal Affect - Skin Skin Exam: Dry, Intact Results - Vital Signs Recent Vital Signs: Last Vital Signs Temp 98.0 F 10/03/17 08:15 Pulse 98 H 10/03/17 08:15 Resp 19 10/03/17 08:15 BP 147/67 10/03/17 08:15 Pulse Ox 97 10/03/17 08:15 - Labs Result Diagrams: 10/03/17 05:20 10/03/17 05:20 Labs: Laboratory Results - last 24 hr 10/03/17 10/03/17 05:20 05:20 WBC 15.0 H RBC 3.54 L Hgb 9.5 L Hct 31.5 L MCV 89.0 MCH 27.0 MCHC 30.3 L RDW 20.2 H Plt Count 468 H Sodium 135 Potassium 4.6 Chloride 97 L Carbon Dioxide 19 L Anion Gap 24 H BUN 83 H Creatinine 6.1 H Est GFR ( Amer) 9 Est GFR (Non-Af Amer) 7 Random Glucose 97 Calcium 8.4 Assessment & Plan - Assessment and Plan (Free Text) Assessment: 56 yo female with history of ESRD, DM2, HTN and PAD had right BKA at [facility] on because of non-healing wound on the right leg. She was transferred to [facility] and admitted to TCU for continued management and therapy. Right BK stump did not heal and developed ischemic necrosis. She was then discharged to [facility] and had right AKA. 1. PAD Post right AKA daily dressing and wound care management constantly complaining of pain without relief pain specialist consult 2. ESRD HD on TThS Dr Hirsch on renal consult 3. Anemia of Chronic Disease continue Procrit 20,000 units IV TThS 4. Anxiety on Ativan PRN 5. Hypothyroidism continue Levothyroxine 75 mcg PO daily TSH: 2.16 6. HTN BP stable continue Zestril/Coreg/Norvasc/Catapress 7. Seizure Keppra 500mg PO q 12hrs 8. CAD s/p coronary stent placement continue Coreg/ASA/Lipitor 9. DVT Prophylaxis Heparin 5000 units q 12hrs
--- NOTE | 2017-10-03 17:23 | CP.PCM.CON ---
History of Present Illness - History of Present Illness History of Present Illness: 56 year female readmitted to acute rehab with now a Right AKA, previously a Right BKa, status post infection and gangrene. Other PMH of HTN .DM Review of Systems - Musculoskeletal Musculoskeletal: Muscle Weakness - Integumentary Integumentary: Non-Healing Lesions, Wounds - Neurological Neurological: Weakness Past Patient History - Infectious Disease Hx of Infectious Diseases: None - Tetanus Immunizations Tetanus Immunization: Unknown - Past Medical History & Family History Past Medical History?: Yes - Past Social History Smoking Status: Former Smoker Chewing Tobacco Use: No Cigar Use: No Alcohol: None - CARDIAC Hx Cardiac Disorders: Yes Hx Congestive Heart Failure: Yes Hx Hypercholesterolemia: Yes Hx Hypertension: Yes - PULMONARY Hx Chronic Obstructive Pulmonary Disease (COPD): Yes - NEUROLOGICAL HX Cerebrovascular Accident: Yes - HEENT Hx HEENT Problems: Yes Hx Deafness: Yes - RENAL Hx Renal Failure: Yes - ENDOCRINE/METABOLIC Hx Diabetes Mellitus Type 2: Yes - HEMATOLOGICAL/ONCOLOGICAL Hx AIDS: No Hx Anemia: Yes (Anemia of chronic kidney disease) Hx Blood Transfusions: Yes Hx Blood Transfusion Reaction: No Hx Human Immunodeficiency Virus (HIV): No - INTEGUMENTARY Hx Dermatological Problems: Yes (dark discoloration on sacral area) - MUSCULOSKELETAL/RHEUMATOLOGICAL Hx Falls: Yes - GASTROINTESTINAL Hx Gastrointestinal Disorders: Yes Hx Constipation: Yes ("Old condition for 10 years") Hx Gastritis: Yes Hx Gastroesophageal Reflux: Yes Other/Comment: - Diverticulosis - GENITOURINARY/GYNECOLOGICAL Hx Genitourinary Disorders: No Hx Hematuria: No Hx Incontinence: No Hx Reproductive Disorders: No Hx Sexually Transmitted Disorders: No Hx Urinary Tract Infection: No Other/Comment: pt voids - PSYCHIATRIC Hx Anxiety: Yes Hx Depression: Yes Hx Hallucinations: Yes Hx Substance Use: No - SURGICAL HISTORY Hx Surgeries: Yes Hx Amputation: Yes (Right BKA (09/14/17), Right AKA (09/29/17)) Hx Angioplasty: Yes (R external Iiiac with stent, R profunda femoral angioplasty (08/2016)) Hx Appendectomy: Yes Hx Arteriovenous Shunt: Yes (Right) Hx Cardiac Catheterization: Yes Hx Section: Yes Hx Coronary Stent: Yes Hx Herniorrhaphy: Yes Hx Tonsillectomy: Yes Hx Vascular Surgery: Yes Hx Vascular Access Device: Yes Other/Comment: - AV graft / bilateral leg arterial bypass - ANESTHESIA Hx Anesthesia: Yes Hx Anesthesia Reactions: No Hx Malignant Hyperthermia: No Has any member of the family had a problem w/ anesthesia?: No Meds Allergies/Adverse Reactions: Allergies Allergy/AdvReac Type Severity Reaction Status Date / Time ciprofloxacin Allergy RASH Verified 10/02/17 19:21 hydralazine Allergy RASH Verified 10/02/17 19:21 vancomycin Allergy SHORTNESS Verified 10/02/17 19:[address] dye Allergy RASH Uncoded 10/02/17 19:21 - Medications Medications: Current Medications Acetaminophen (Tylenol 325mg Tab) 650 mg PO Q4 PRN PRN Reason: Pain, Mild (1-3) Albuterol Sulfate (Albuterol 0.083% Inhal Yaneli (2.5 Mg/3 Ml) Ud) 2.5 mg IH RQ6 [facility] Last Admin: 10/03/17 13:31 Dose: Not Given Amlodipine Besylate (Norvasc) 10 mg PO DAILY [facility] Last Admin: 10/03/17 08:07 Dose: 10 mg Atorvastatin Calcium (Lipitor) 20 mg PO HS [facility] Last Admin: 10/02/17 21:39 Dose: 20 mg Calcitriol (Rocaltrol) 0.5 mcg PO TTS [facility] Last Admin: 10/03/17 08:08 Dose: 0.5 mcg Carvedilol (Coreg) 12.5 mg PO Q12 [facility] Clonidine HCl (Catapres) 0.2 mg PO Q12 [facility] Last Admin: 10/03/17 08:08 Dose: 0.2 mg Cyclobenzaprine HCl (Flexeril) 5 mg PO Q8 [facility] Last Admin: 10/03/17 14:24 Dose: 5 mg Duloxetine HCl (Cymbalta) 20 mg PO DAILY [facility] Epoetin Tobin (Procrit) 20,000 unit IV TTS [facility] Heparin Sodium (Porcine) (Heparin) 5,000 units SC Q12 [facility] PRN Reason: Protocol Last Admin: 10/03/17 08:08 Dose: 5,000 units Hydromorphone HCl (Dilaudid) 2 mg PO Q6 PRN PRN Reason: Pain, severe (8-10) Levetiracetam (Keppra) 500 mg PO Q12 [facility] Levothyroxine Sodium (Synthroid) 75 mcg PO DAILY@0630 [facility] Last Admin: 10/03/17 06:00 Dose: 75 mcg Ondansetron HCl (Zofran Inj) 4 mg IVP Q6 PRN PRN Reason: Nausea/Vomiting Pantoprazole Sodium (Protonix Ec Tab) 40 mg PO DAILY [facility] Last Admin: 10/03/17 08:08 Dose: 40 mg Pregabalin (Lyrica) 50 mg PO Q12 [facility] Tramadol HCl (Ultram) 50 mg PO Q6 PRN PRN Reason: Pain, moderate (4-7) Last Admin: 10/03/17 08:03 Dose: 50 mg Physical Exam - Head Exam Head Exam: ATRAUMATIC, NORMAL INSPECTION, NORMOCEPHALIC - Eye Exam Eye Exam: EOMI, Normal appearance Pupil Exam: NORMAL ACCOMODATION, PERRL - ENT Exam ENT Exam: Mucous Membranes Moist, Normal Exam - Neck Exam Neck exam: Positive for: Normal Inspection - Respiratory Exam Respiratory Exam: Clear to Auscultation Bilateral, NORMAL BREATHING PATTERN - Cardiovascular Exam Cardiovascular Exam: REGULAR RHYTHM - GI/Abdominal Exam GI & Abdominal Exam: Normal Bowel Sounds - Rectal Exam Rectal Exam: NORMAL INSPECTION - Exam External exam: NORMAL EXTERNAL EXAM - Extremities Exam Extremities exam: Positive for: normal inspection Additional comments: Right AKA with dressing - Back Exam Back exam: NORMAL INSPECTION - Neurological Exam Neurological exam: Alert, CN II-XII Intact - Psychiatric Exam Psychiatric exam: Normal Mood - Skin Skin Exam: Normal Color Results - Vital Signs Recent Vital Signs: Last Vital Signs Temp 98.0 F 10/03/17 08:15 Pulse 85 10/03/17 08:38 Resp 19 10/03/17 08:15 BP 127/74 10/03/17 08:38 Pulse Ox 100 10/03/17 08:38 - Labs Result Diagrams: 10/03/17 05:20 10/03/17 05:20 Labs: Laboratory Results - last 24 hr 10/03/17 10/03/17 05:20 05:20 WBC 15.0 H RBC 3.54 L Hgb 9.5 L Hct 31.5 L MCV 89.0 MCH 27.0 MCHC 30.3 L RDW 20.2 H Plt Count 468 H Sodium 135 Potassium 4.6 Chloride 97 L Carbon Dioxide 19 L Anion Gap 24 H BUN 83 H Creatinine 6.1 H Est GFR ( Amer) 9 Est GFR (Non-Af Amer) 7 Random Glucose 97 Calcium 8.4 Assessment & Plan (1) Above knee amputation of right lower extremity Assessment and Plan: plan for stump shaping, wraping, desensitization, range of motion, strengthening , transfers and gait training, physical, occupational therapy rec therapy, wound care and surgical follow up, pain treatment Status: Acute
--- NOTE | 2017-10-03 17:29 | PCM.OPOC ---
Physiatry Overall Plan of Care - Overall Plan of Care Estimated Length of Stay in Weeks: 3 Rehab Impairment: Mobility, Gait, Balance, Coordination Etiologic Diagnosis: Amputee Rehab/Medical Prognosis: Fair - Anticipated Interventions Physical Therapy:: Yes Occupational Therapy:: Yes Recreational Therapy:: Yes - Therapy Goals Bed Mobility: Independent Ambulation: Contact Guard Functional Positional Changes:: Supervision - Functional Outcomes Functional Outcomes: fair - Discharge Plan Identification of Barriers to Discharge: Cognition Discharge Destination: Home
--- NOTE | 2017-10-03 19:42 | CP.PCM.CON ---
Past Patient History - Infectious Disease Hx of Infectious Diseases: None - Tetanus Immunizations Tetanus Immunization: Unknown - Past Medical History & Family History Past Medical History?: Yes - Past Social History Smoking Status: Former Smoker Chewing Tobacco Use: No Cigar Use: No Alcohol: None - CARDIAC Hx Cardiac Disorders: Yes Hx Congestive Heart Failure: Yes Hx Hypercholesterolemia: Yes Hx Hypertension: Yes - PULMONARY Hx Chronic Obstructive Pulmonary Disease (COPD): Yes - NEUROLOGICAL HX Cerebrovascular Accident: Yes - HEENT Hx HEENT Problems: Yes Hx Deafness: Yes - RENAL Hx Renal Failure: Yes - ENDOCRINE/METABOLIC Hx Diabetes Mellitus Type 2: Yes - HEMATOLOGICAL/ONCOLOGICAL Hx AIDS: No Hx Anemia: Yes (Anemia of chronic kidney disease) Hx Blood Transfusions: Yes Hx Blood Transfusion Reaction: No Hx Human Immunodeficiency Virus (HIV): No - INTEGUMENTARY Hx Dermatological Problems: Yes (dark discoloration on sacral area) - MUSCULOSKELETAL/RHEUMATOLOGICAL Hx Falls: Yes - GASTROINTESTINAL Hx Gastrointestinal Disorders: Yes Hx Constipation: Yes ("Old condition for 10 years") Hx Gastritis: Yes Hx Gastroesophageal Reflux: Yes Other/Comment: - Diverticulosis - GENITOURINARY/GYNECOLOGICAL Hx Genitourinary Disorders: No Hx Hematuria: No Hx Incontinence: No Hx Reproductive Disorders: No Hx Sexually Transmitted Disorders: No Hx Urinary Tract Infection: No Other/Comment: pt voids - PSYCHIATRIC Hx Anxiety: Yes Hx Depression: Yes Hx Hallucinations: Yes Hx Substance Use: No - SURGICAL HISTORY Hx Surgeries: Yes Hx Amputation: Yes (Right BKA (09/14/17), Right AKA (09/29/17)) Hx Angioplasty: Yes (R external Iiiac with stent, R profunda femoral angioplasty (08/2016)) Hx Appendectomy: Yes Hx Arteriovenous Shunt: Yes (Right) Hx Cardiac Catheterization: Yes Hx Section: Yes Hx Coronary Stent: Yes Hx Herniorrhaphy: Yes Hx Tonsillectomy: Yes Hx Vascular Surgery: Yes Hx Vascular Access Device: Yes Other/Comment: - AV graft / bilateral leg arterial bypass - ANESTHESIA Hx Anesthesia: Yes Hx Anesthesia Reactions: No Hx Malignant Hyperthermia: No Has any member of the family had a problem w/ anesthesia?: No Meds Allergies/Adverse Reactions: Allergies Allergy/AdvReac Type Severity Reaction Status Date / Time ciprofloxacin Allergy RASH Verified 10/02/17 19:21 hydralazine Allergy RASH Verified 10/02/17 19:21 vancomycin Allergy SHORTNESS Verified 10/02/17 19:[address] dye Allergy RASH Uncoded 10/02/17 19:21 - Medications Medications: Current Medications Acetaminophen (Tylenol 325mg Tab) 650 mg PO Q4 PRN PRN Reason: Pain, Mild (1-3) Albuterol Sulfate (Albuterol 0.083% Inhal Yaneli (2.5 Mg/3 Ml) Ud) 2.5 mg IH RQ6 [facility] Last Admin: 10/03/17 13:31 Dose: Not Given Amlodipine Besylate (Norvasc) 10 mg PO DAILY [facility] Last Admin: 10/03/17 08:07 Dose: 10 mg Atorvastatin Calcium (Lipitor) 20 mg PO HS [facility] Last Admin: 10/02/17 21:39 Dose: 20 mg Calcitriol (Rocaltrol) 0.5 mcg PO TTS [facility] Last Admin: 10/03/17 08:08 Dose: 0.5 mcg Carvedilol (Coreg) 12.5 mg PO Q12 [facility] Clonidine HCl (Catapres) 0.2 mg PO Q12 [facility] Last Admin: 10/03/17 08:08 Dose: 0.2 mg Cyclobenzaprine HCl (Flexeril) 5 mg PO Q8 [facility] Last Admin: 10/03/17 14:24 Dose: 5 mg Duloxetine HCl (Cymbalta) 20 mg PO DAILY [facility] Epoetin Tobin (Procrit) 20,000 unit IV TTS [facility] Heparin Sodium (Porcine) (Heparin) 5,000 units SC Q12 [facility] PRN Reason: Protocol Last Admin: 10/03/17 08:08 Dose: 5,000 units Hydromorphone HCl (Dilaudid) 2 mg PO Q6 PRN PRN Reason: Pain, severe (8-10) Levetiracetam (Keppra) 500 mg PO Q12 [facility] Levothyroxine Sodium (Synthroid) 75 mcg PO DAILY@0630 [facility] Last Admin: 10/03/17 06:00 Dose: 75 mcg Ondansetron HCl (Zofran Inj) 4 mg IVP Q6 PRN PRN Reason: Nausea/Vomiting Pantoprazole Sodium (Protonix Ec Tab) 40 mg PO DAILY [facility] Last Admin: 10/03/17 08:08 Dose: 40 mg Pregabalin (Lyrica) 50 mg PO Q12 [facility] Tramadol HCl (Ultram) 50 mg PO Q6 PRN PRN Reason: Pain, moderate (4-7) Last Admin: 10/03/17 08:03 Dose: 50 mg Results - Vital Signs Recent Vital Signs: Last Vital Signs Temp 98.0 F 10/03/17 08:15 Pulse 85 10/03/17 08:38 Resp 19 10/03/17 08:15 BP 127/74 10/03/17 08:38 Pulse Ox 100 10/03/17 08:38 - Labs Result Diagrams: 10/03/17 05:20 10/03/17 05:20 Labs: Laboratory Results - last 24 hr 10/03/17 10/03/17 05:20 05:20 WBC 15.0 H RBC 3.54 L Hgb 9.5 L Hct 31.5 L MCV 89.0 MCH 27.0 MCHC 30.3 L RDW 20.2 H Plt Count 468 H Sodium 135 Potassium 4.6 Chloride 97 L Carbon Dioxide 19 L Anion Gap 24 H BUN 83 H Creatinine 6.1 H Est GFR ( Amer) 9 Est GFR (Non-Af Amer) 7 Random Glucose 97 Calcium 8.4
[2017-10-04] MEDS: Albuterol 0.083% Inhal Sol (2.5 mg/3 mL) UD IH SCH ×4 (01:01→19:31)
[2017-10-04] MEDS: Levothyroxine 75 MCG TAB PO SCH (06:39)
[2017-10-04 07:10] LABS: CALCIUM 8.6 mg/dL (8.4-10.2)
--- NOTE | 2017-10-04 07:55 | CON ---
Copied To: Rakesh Hirsch MD Attending MD: Rakesh Hirsch MD DATE: 10/03/2017 NEPHROLOGY CONSULTATION LOCATION: [facility]. HISTORY OF PRESENT ILLNESS: A 56-year-old female with past medical history of hypertension, diabetes, CAD, status post stent, CHF with diastolic dysfunction, PAD, status post right AKA, COPD, and ESRD on hemodialysis (Monday, , Monday at [facility], [facility] Dr. Gina Hamilton) to rehab unit yesterday. Nephrology being consulted for ESRD care. The patient is status post right AKA procedure four days ago due to ischemic necrosis of right BKA stump site; was subsequently admitted to Med-Surg floor. The patient had right BKA done earlier this month at [facility] in the setting of nonhealing right lower extremity ulcer with severe intractable pain of affected limb. She was subsequently discharged to subacute rehab at [facility] before requiring right AKA procedure. The patient has been having decreased p.o. intake; complaining of nausea, but no vomiting. Has been having loose bowel movements; is tolerating Nepro Shake three times a day; otherwise denies any shortness of breath or difficulty breathing or cough. Main complaint is pain of AKA limb. PAST MEDICAL HISTORY: As above. SOCIAL HISTORY: Previous smoker. FAMILY HISTORY: Brain aneurysm (brother and father). Mother with heart disease. REVIEW OF SYSTEMS: CONSTITUTIONAL: Decreased appetite. HEENT: Denies any dysphagia or difficulty swallowing, odynophagia, or sore throat. RESPIRATORY: No cough. No dyspnea. CARDIOVASCULAR: No chest pain or palpitations. GI: As per HPI. : Anuric. MUSCULOSKELETAL: Pain of the right AKA limb. PSYCHIATRIC: Denies any anxiety issues. SKIN: Recent nonhealing of right BKA stump site. PHYSICAL EXAMINATION: VITAL SIGNS: This afternoon, blood pressure 125/93, heart rate 97. Rest of vitals: Temperature 98 this morning, O2 sat 97% on room air. GENERAL: No distress. Conversing coherently in full sentences. HEENT: Moist mucous membranes. Nonicteric. No cervical lymphadenopathy. No elevated JVD. RESPIRATORY: Lungs clear to auscultation bilaterally. No rales. No rhonchi. No wheezes. CARDIOVASCULAR: Soft systolic murmur. No gallops. No rubs. Regular rate and rhythm. GASTROINTESTINAL: Abdomen is soft, mildly distended, mild lower quadrant tenderness. GENITOURINARY: No overt bladder distention. SKIN: Warm. No cyanosis. EXTREMITIES: No lower leg edema. NEUROLOGIC: No resting tremor. PSYCHIATRIC: Not agitated. ASSESSMENT AND PLAN: 1. End-stage renal disease on hemodialysis. The patient due for hemodialysis today; however, due to the logistical reasons dialysis is being delayed till tomorrow. The patient with stable status on exam; does have mild metabolic acidosis, but otherwise with stable potassium. No urgency for regularly scheduled dialysis to be done today. We will check labs in the morning and expedite dialysis as needed. 2. Hypertensive end-stage renal disease. Blood pressure has been difficult to control at times. Currently on carvedilol 12.5 mg every 12 hours, clonidine 0.2 mg every 12 hours, amlodipine 10 mg daily. Continue the same. 3. Anemia of chronic kidney disease. Hemoglobin is below goal. Ferritin has been high. We will continue with Epogen 20,000 units on hemodialysis. 4. Chronic kidney disease, mineral and bone disorder. The patient with PTH that has been elevated, most recently was 823, currently on calcitriol 0.5 mcg every Monday, , and Monday. Continue the same. Phos has been low. We will continue to hold phos binders. 5. Pain, the patient is currently on Lyrica being dosed as 50 mg every 12 hours, is a little higher than the recommended dose for hemodialysis patient. Recommend to monitor mental status hopefully. Thank you for this referral. We will be following up closely. Rakesh Hirsch MD
[2017-10-04] MEDS: Pantoprazole 40 mg EC Tab PO SCH (08:18)
--- NOTE | 2017-10-04 12:10 | PSY.TMCNF ---
Nursing - Vital Signs Vital Signs (Last 8 hours): Vital Signs 10/04/17 10/04/17 10/04/17 08:18 08:19 08:26 Temperature 97.6 F Pulse Rate 96 H 94 H Respiratory 19 Rate Blood Pressure 145/70 145/70 145/70 O2 Sat by Pulse 96 Oximetry Pain: 2 - Medications/Other Issues Comment: Pt at high nutritional risk. goals: 1. Pt to consume 75-100% of meals. 2. K+ WNL. 3. Blood glucoses to be between 70-180 mg/dl. Follow-up due on 10/08/2017 - Skin Incision Site: Right AKA Stump Dressing Status: Clean, Dry, Intact Incision: Rick Intact Incision Line Treatment: Right stump with dressing and Hammad wrap intact. Keep dressing intact till further order per ortho. - Wound Sacrum Wound Type: Pressure Ulcer Wound Stage: STAGE II Wound Bed Greatest Portion: Red (Granulation) Wound Bed Lesser Portion: Red (Granulation) Wound Drainage Amount: Minimal Wound Drainage Description: Serosanguineous Wound Drainage Odor: None/Absent Wound General Appearance: Clean/Dry Wound Dressing Status: Dry & Intact Wound Primary Dressing Type: Allevyn - Bladder Management Bladder Management: Moderate Assistance - Bowel Management Bowel Pattern: Incontinent - Goals/Time Frame Comments: Pt was seen at bedside agreeable to evaluation visit. Pt known to recreation therapy and known to unit 2' pt admission prior to AKA. Pt presented with increase alertness and arousal level than prior admission. Pt expressed that she was in pain and at times was closing her eyes unable to attend to discussion. Allowed pt to rest. Pt was not ambulating in community or at home prior to hospital admission. Pt will benefit from participating in recreation therapy sessions to improve arousal level, activity tolerance level, Physical Therapy - Bed Mobility Bed Mobility: Verbal Cues, Moderate Assistance - Transfers Wheelchair to Mat: Verbal Cues, Moderate Assistance Sit to Stand: Verbal Cues, Moderate Assistance - Ambulation Level of Assistance: Verbal Cues, Moderate Assistance Distance (ft.): 6 Comment: // bars - Stair Negotiation Stairs: Level of Assistance: Not Tested - Standing Balance Static Stand: Minimal Assistance Dynamic Stand: Unable to assess/perform - Pain Management Techniques: Position Change, Distraction, Inactivity - Insight/Carryover Insight/Carryover: Fair - Patient/Family Education Comment: -rehab/OT goals and plan of care. -adls, transfers & mobility using adaptive strategies & devices. -w/c propulsion/management. -bed & w/c positioning - Assessment/Plan Assessment: Pt is a 56 year old female with dx: R AKA, Precautions: falls, cardiac, O2 via nasal cannula at all times @ 2L. Pt limited by R stump pain, impaired BUE strength, impaired stanidng/sitting balance, impaired endurance/ activity tolerance, impaired knowledge of adaptive/compensatory strategies-- which impact on self care, functional transfers/mobility . Pt will benefit continue to benefit from skilled OT to address impairment area to maxmize function in self care, transfers/mobility using adaptive device/strategies, + caregiver ed, DME needs assessment. Pt will need ongoing education on safety adls/rehab goals and plan of care. *Goal: Supervision w/c level for adls, transfers/mobility, caregiver to be I assisting pt with self care, transfers/ mobility - Goals Timeframe: 1 week Goals: -FEEDING: I/setup. -GROOMING: Supervsion/setup seated. -UPPER BODY DRESSING: Min assist and verbal cues. -LOWER BODY DRESSING: Min assist and verbal cues. -TOILETING: Moderate assist and verbal cues. -TRANSFERS: <->bed, commode, chair and other surfaces with Min assist and verbal cues for SPT. -W/ C MANAGEMENT: pt to propel w/c ~150 feet with Supervision and verbal cues; pt manages B brakes with Supervision and verbal cues - Provider Therapist: c License Number: [id number] Occupational Therapy - Arousal/Attention/Orientation Patient Orientation: Person, Place - ADL/IADL Self Feeding: Supervision, Verbal Cues, Set-up Help Grooming: Verbal Cues, Set-up Help, Minimal Assistance Dressing-Upper Extremity: Moderate Assistance Dressing-Lower Extremity: Maximum Assistance - Transfers Wheelchair to Bed Transfers: Verbal Cues, Set-up Help, Moderate Assistance Toilet Transfers: Verbal Cues, Set-up Help, Moderate Assistance, Maximum Assistance - Wheelchair Management Level of Assistance: Supervision - Upper Extremity Status Right Upper Extremity Comment: AROM WFLS Left Upper Extremity Comment: AROM WFLS - Pain Alleviating Techniques: Position Change, Distraction, Inactivity - Insight/Carryover Insight/Carryover: Fair - Patient/Family Education Comment: -rehab/OT goals and plan of care. -adls, transfers & mobility using adaptive strategies & devices. -w/c propulsion/management. -bed & w/c positioning - Assessment/Plan Assessment: Pt is a 56 year old female with dx: R AKA, Precautions: falls, cardiac, O2 via nasal cannula at all times @ 2L. Pt limited by R stump pain, impaired BUE strength, impaired stanidng/sitting balance, impaired endurance/ activity tolerance, impaired knowledge of adaptive/compensatory strategies-- which impact on self care, functional transfers/mobility . Pt will benefit continue to benefit from skilled OT to address impairment area to maxmize function in self care, transfers/mobility using adaptive device/strategies, + caregiver ed, DME needs assessment. Pt will need ongoing education on safety adls/rehab goals and plan of care. *Goal: Supervision w/c level for adls, transfers/mobility, caregiver to be I assisting pt with self care, transfers/ mobility - Goals Timeframe: 1 week Goals: -FEEDING: I/setup. -GROOMING: Supervsion/setup seated. -UPPER BODY DRESSING: Min assist and verbal cues. -LOWER BODY DRESSING: Min assist and verbal cues. -TOILETING: Moderate assist and verbal cues. -TRANSFERS: <->bed, commode, chair and other surfaces with Min assist and verbal cues for SPT. -W/ C MANAGEMENT: pt to propel w/c ~150 feet with Supervision and verbal cues; pt manages B brakes with Supervision and verbal cues - Provider Therapist: Viridiana Bradshaw, OTR/L License Number: [id number] Speech Therapy - Plan Assessment: Pt is a 56 year old female with dx: R AKA, Precautions: falls, cardiac, O2 via nasal cannula at all times @ 2L. Pt limited by R stump pain, impaired BUE strength, impaired stanidng/sitting balance, impaired endurance/ activity tolerance, impaired knowledge of adaptive/compensatory strategies-- which impact on self care, functional transfers/mobility . Pt will benefit continue to benefit from skilled OT to address impairment area to maxmize function in self care, transfers/mobility using adaptive device/strategies, + caregiver ed, DME needs assessment. Pt will need ongoing education on safety adls/rehab goals and plan of care. *Goal: Supervision w/c level for adls, transfers/mobility, caregiver to be I assisting pt with self care, transfers/ mobility Recreational Therapy - Participation Participation: Participates in Individual and/or Group Sessions - Attendance Attendance: 3-5 times per week - Activities Leisure Activities: Television - Socialization Level of Socialization: Initiates/interacts freely with care givers and peer - Assessment Assessment/Plan: Pt is a 56 year old female with dx: R AKA, Precautions: falls, cardiac, O2 via nasal cannula at all times @ 2L. Pt limited by R stump pain, impaired BUE strength, impaired stanidng/sitting balance, impaired endurance/ activity tolerance, impaired knowledge of adaptive/compensatory strategies-- which impact on self care, functional transfers/mobility . Pt will benefit continue to benefit from skilled OT to address impairment area to maxmize function in self care, transfers/mobility using adaptive device/strategies, + caregiver ed, DME needs assessment. Pt will need ongoing education on safety adls/rehab goals and plan of care. *Goal: Supervision w/c level for adls, transfers/mobility, caregiver to be I assisting pt with self care, transfers/ mobility - Provider Therapist: Donna Cespedes, [employer]MER #[id number] Nutrition - Current Diet Current Diet/ Supplement/ Feedings: Heart healthy renal dialysis Nepro 8 ounces 3 per dy - Appetite Percent Meal Consumed: 25-49% - Assessment/Goals/Time Frame Assessment/Goals/Time Frame: Pt at high nutritional risk. goals: 1. Pt to consume 75-100% of meals. 2. K+ WNL. 3. Blood glucoses to be between 70-180 mg/dl. Follow-up due on 10/08/2017 - Provider Provider: Anya Wills RD Case Management - Discharge Plan Discharge Plan: Home with significant other/family Rehabilitation Plan - Treatment Plan Treatment Plan: Physical Therapy, Occupational Therapy, Speech, Dietary, Patient /Family Education - Recommendation Recommendation: Physical Therapy, Occupational Therapy, Speech, Dietary, Patient /Family Education [X]: Wound Care, Pain Management - Discharge Plan Discharge to: Home
--- NOTE | 2017-10-04 14:23 | CP.PCM.PN ---
Subjective - Date & Time of Evaluation Date of Evaluation: 10/04/17 Time of Evaluation: 12:20 - Subjective Subjective: no acute complaints, generalized weakness Objective - Vital Signs/Intake and Output Vital Signs (last 24 hours): Temp Pulse Resp BP Pulse Ox 97.6 F 94 H 19 145/70 96 10/04/17 08:26 10/04/17 08:26 10/04/17 08:26 10/04/17 08:26 10/04/17 08:26 - Medications Medications: Current Medications Acetaminophen (Tylenol 325mg Tab) 650 mg PO Q4 PRN PRN Reason: Pain, Mild (1-3) Albuterol Sulfate (Albuterol 0.083% Inhal Yaneli (2.5 Mg/3 Ml) Ud) 2.5 mg IH RQ6 [facility] Last Admin: 10/04/17 13:36 Dose: Not Given Amlodipine Besylate (Norvasc) 10 mg PO DAILY [facility] Last Admin: 10/04/17 08:18 Dose: 10 mg Atorvastatin Calcium (Lipitor) 20 mg PO HS [facility] Last Admin: 10/03/17 21:11 Dose: 20 mg Calcitriol (Rocaltrol) 0.5 mcg PO TTS [facility] Last Admin: 10/03/17 08:08 Dose: 0.5 mcg Carvedilol (Coreg) 12.5 mg PO Q12 [facility] Last Admin: 10/04/17 08:19 Dose: 12.5 mg Clonidine HCl (Catapres) 0.2 mg PO Q12 [facility] Last Admin: 10/04/17 08:18 Dose: 0.2 mg Cyclobenzaprine HCl (Flexeril) 5 mg PO Q8 [facility] Last Admin: 10/04/17 13:52 Dose: 5 mg Duloxetine HCl (Cymbalta) 20 mg PO DAILY [facility] Last Admin: 10/04/17 08:19 Dose: 20 mg Epoetin Tobin (Procrit) 20,000 unit IV TTS [facility] Heparin Sodium (Porcine) (Heparin) 5,000 units SC Q12 [facility] PRN Reason: Protocol Last Admin: 10/04/17 08:15 Dose: 5,000 units Hydromorphone HCl (Dilaudid) 2 mg PO Q6 PRN PRN Reason: Pain, severe (8-10) Levetiracetam (Keppra) 500 mg PO Q12 [facility] Last Admin: 10/04/17 08:19 Dose: 500 mg Levothyroxine Sodium (Synthroid) 75 mcg PO DAILY@0630 [facility] Last Admin: 10/04/17 06:39 Dose: 75 mcg Ondansetron HCl (Zofran Inj) 4 mg IVP Q6 PRN PRN Reason: Nausea/Vomiting Pantoprazole Sodium (Protonix Ec Tab) 40 mg PO DAILY [facility] Last Admin: 10/04/17 08:18 Dose: 40 mg Pregabalin (Lyrica) 50 mg PO Q12 [facility] Last Admin: 10/04/17 08:14 Dose: 50 mg Tramadol HCl (Ultram) 50 mg PO Q6 PRN PRN Reason: Pain, moderate (4-7) Last Admin: 10/04/17 08:13 Dose: 50 mg - Labs Labs: 10/03/17 05:20 10/04/17 05:20 - Head Exam Head Exam: ATRAUMATIC, NORMAL INSPECTION, NORMOCEPHALIC - Eye Exam Eye Exam: EOMI, Normal appearance, PERRL Pupil Exam: NORMAL ACCOMODATION - ENT Exam ENT Exam: Mucous Membranes Moist, Normal Exam - Neck Exam Neck Exam: Full ROM, Normal Inspection - Respiratory Exam Respiratory Exam: Clear to Ausculation Bilateral, NORMAL BREATHING PATTERN - Cardiovascular Exam Cardiovascular Exam: REGULAR RHYTHM - GI/Abdominal Exam GI & Abdominal Exam: Soft, Normal Bowel Sounds - Rectal Exam Rectal Exam: NORMAL INSPECTION - Exam External exam: NORMAL EXTERNAL EXAM - Extremities Exam Extremities Exam: Full ROM, Normal Capillary Refill, Normal Inspection - Back Exam Back Exam: NORMAL INSPECTION - Neurological Exam Neurological Exam: Alert, Awake Neuro motor strength exam: Left Upper Extremity: 3, Right Upper Extremity: 3, Left Lower Extremity: 3, Right Lower Extremity: 3 - Psychiatric Exam Psychiatric exam: Normal Affect, Normal Mood - Skin Skin Exam: Dry, Intact, Normal Color Assessment and Plan (1) Above knee amputation of right lower extremity Assessment & Plan: status post team conference pt ot rec therapy Status: Acute
--- NOTE | 2017-10-04 15:08 | CP.PCM.CON ---
History of Present Illness - History of Present Illness History of Present Illness: pt is 56 yo female without previous formal psychiatric diagnosis or treatment , consult requested for depression pt with history of ESRD, DM2, HTN and PAD had right BKA at [facility] on 09/14/17 because of non-healing wound on the right leg. She was transferred to [facility] and admitted to TCU for continued management and therapy. Right BK stump did not heal and developed ischemic necrosis. She was discharged to [facility] and had right AKA on 09/29/17. Patient tolerated procedure but had difficulty tolerating phantom pain of the right leg. pt on evaluation reported feeling down and sad due to her current medical condition, stated frequent crying spells, poor sleep , with early insomnia, poor appetite loosing about 30lb in past few months, low energy and low motivation pt denied any current suicidal ideation, stating she has two children very supportive and she would love to live for them , denied perceptual disturbances, Past Patient History - Infectious Disease Hx of Infectious Diseases: None - Tetanus Immunizations Tetanus Immunization: Unknown - Past Medical History & Family History Past Medical History?: Yes - Past Social History Smoking Status: Former Smoker Chewing Tobacco Use: No Cigar Use: No Alcohol: None - CARDIAC Hx Cardiac Disorders: Yes Hx Congestive Heart Failure: Yes Hx Hypercholesterolemia: Yes Hx Hypertension: Yes - PULMONARY Hx Chronic Obstructive Pulmonary Disease (COPD): Yes - NEUROLOGICAL HX Cerebrovascular Accident: Yes - HEENT Hx HEENT Problems: Yes Hx Deafness: Yes - RENAL Hx Renal Failure: Yes - ENDOCRINE/METABOLIC Hx Diabetes Mellitus Type 2: Yes - HEMATOLOGICAL/ONCOLOGICAL Hx AIDS: No Hx Anemia: Yes (Anemia of chronic kidney disease) Hx Blood Transfusions: Yes Hx Blood Transfusion Reaction: No Hx Human Immunodeficiency Virus (HIV): No - INTEGUMENTARY Hx Dermatological Problems: Yes (dark discoloration on sacral area) - MUSCULOSKELETAL/RHEUMATOLOGICAL Hx Falls: Yes - GASTROINTESTINAL Hx Gastrointestinal Disorders: Yes Hx Constipation: Yes ("Old condition for 10 years") Hx Gastritis: Yes Hx Gastroesophageal Reflux: Yes Other/Comment: - Diverticulosis - GENITOURINARY/GYNECOLOGICAL Hx Genitourinary Disorders: No Hx Hematuria: No Hx Incontinence: No Hx Reproductive Disorders: No Hx Sexually Transmitted Disorders: No Hx Urinary Tract Infection: No Other/Comment: pt voids - PSYCHIATRIC Hx Anxiety: Yes Hx Depression: Yes Hx Hallucinations: Yes Hx Substance Use: No - SURGICAL HISTORY Hx Surgeries: Yes Hx Amputation: Yes (Right BKA (09/14/17), Right AKA (09/29/17)) Hx Angioplasty: Yes (R external Iiiac with stent, R profunda femoral angioplasty (08/2016)) Hx Appendectomy: Yes Hx Arteriovenous Shunt: Yes (Right) Hx Cardiac Catheterization: Yes Hx Section: Yes Hx Coronary Stent: Yes Hx Herniorrhaphy: Yes Hx Tonsillectomy: Yes Hx Vascular Surgery: Yes Hx Vascular Access Device: Yes Other/Comment: - AV graft / bilateral leg arterial bypass - ANESTHESIA Hx Anesthesia: Yes Hx Anesthesia Reactions: No Hx Malignant Hyperthermia: No Has any member of the family had a problem w/ anesthesia?: No Meds Allergies/Adverse Reactions: Allergies Allergy/AdvReac Type Severity Reaction Status Date / Time ciprofloxacin Allergy RASH Verified 10/02/17 19:21 hydralazine Allergy RASH Verified 10/02/17 19:21 vancomycin Allergy SHORTNESS Verified 10/02/17 19:[address] dye Allergy RASH Uncoded 10/02/17 19:21 - Medications Medications: Current Medications Acetaminophen (Tylenol 325mg Tab) 650 mg PO Q4 PRN PRN Reason: Pain, Mild (1-3) Albuterol Sulfate (Albuterol 0.083% Inhal Yaneli (2.5 Mg/3 Ml) Ud) 2.5 mg IH RQ6 [facility] Last Admin: 10/04/17 13:36 Dose: Not Given Amlodipine Besylate (Norvasc) 10 mg PO DAILY [facility] Last Admin: 10/04/17 08:18 Dose: 10 mg Atorvastatin Calcium (Lipitor) 20 mg PO HS [facility] Last Admin: 10/03/17 21:11 Dose: 20 mg Calcitriol (Rocaltrol) 0.5 mcg PO TTS [facility] Last Admin: 10/03/17 08:08 Dose: 0.5 mcg Carvedilol (Coreg) 12.5 mg PO Q12 [facility] Last Admin: 10/04/17 08:19 Dose: 12.5 mg Clonidine HCl (Catapres) 0.2 mg PO Q12 [facility] Last Admin: 10/04/17 08:18 Dose: 0.2 mg Cyclobenzaprine HCl (Flexeril) 5 mg PO Q8 [facility] Last Admin: 10/04/17 13:52 Dose: 5 mg Duloxetine HCl (Cymbalta) 20 mg PO DAILY [facility] Last Admin: 10/04/17 08:19 Dose: 20 mg Epoetin Tobin (Procrit) 20,000 unit IV TTS [facility] Heparin Sodium (Porcine) (Heparin) 5,000 units SC Q12 [facility] PRN Reason: Protocol Last Admin: 10/04/17 08:15 Dose: 5,000 units Hydromorphone HCl (Dilaudid) 2 mg PO Q6 PRN PRN Reason: Pain, severe (8-10) Levetiracetam (Keppra) 500 mg PO Q12 [facility] Last Admin: 10/04/17 08:19 Dose: 500 mg Levothyroxine Sodium (Synthroid) 75 mcg PO DAILY@0630 [facility] Last Admin: 10/04/17 06:39 Dose: 75 mcg Ondansetron HCl (Zofran Inj) 4 mg IVP Q6 PRN PRN Reason: Nausea/Vomiting Pantoprazole Sodium (Protonix Ec Tab) 40 mg PO DAILY [facility] Last Admin: 10/04/17 08:18 Dose: 40 mg Pregabalin (Lyrica) 50 mg PO Q12 [facility] Last Admin: 10/04/17 08:14 Dose: 50 mg Tramadol HCl (Ultram) 50 mg PO Q6 PRN PRN Reason: Pain, moderate (4-7) Last Admin: 10/04/17 08:13 Dose: 50 mg Physical Exam - Psychiatric Exam Additional comments: pt seen in wheel chair, cooperative, good eye contact, speech soft and slow, mood depressed, affect depressed, thought form coherent denied any current suicidal or homicidal ideations denied perceptual disturbances , alert awake oriented x3 Results - Vital Signs Recent Vital Signs: Last Vital Signs Temp 97.6 F 10/04/17 08:26 Pulse 94 H 10/04/17 08:26 Resp 19 10/04/17 08:26 BP 145/70 10/04/17 08:26 Pulse Ox 96 10/04/17 08:26 - Labs Result Diagrams: 10/03/17 05:20 10/04/17 05:20 Labs: Laboratory Results - last 24 hr 10/04/17 05:20 Sodium 134 Potassium 4.5 Chloride 93 L Carbon Dioxide 20 L Anion Gap 26 H BUN 106 H* D Creatinine 7.1 H Est GFR ( Amer) 7 Est GFR (Non-Af Amer) 6 Random Glucose 89 Calcium 8.6 Assessment & Plan - Assessment and Plan (Free Text) Assessment: mood disorder due to medical condition with depressive features Plan: pt presenting with depressed mood poor sleep and poor appetite recommend to discontinue cymbalta 20mg as pt already on pain medication, start remeron 7.5mg qhs
[2017-10-04] MEDS: Epoetin Alfa 20000 UNIT/ML Inj IV SCH (16:14)
--- NOTE | 2017-10-04 16:29 | CP.PCM.PN ---
Subjective - Date & Time of Evaluation Date of Evaluation: 10/04/17 Time of Evaluation: 13:45 - Subjective Subjective: Patient seen and examined. Admitted pain has been more tolerable. Patient appeared more alert than before Objective - Vital Signs/Intake and Output Vital Signs (last 24 hours): Temp Pulse Resp BP Pulse Ox 97.6 F 94 H 19 145/70 96 10/04/17 08:26 10/04/17 08:26 10/04/17 08:26 10/04/17 08:26 10/04/17 08:26 - Medications Medications: Current Medications Acetaminophen (Tylenol 325mg Tab) 650 mg PO Q4 PRN PRN Reason: Pain, Mild (1-3) Albuterol Sulfate (Albuterol 0.083% Inhal Yaneli (2.5 Mg/3 Ml) Ud) 2.5 mg IH RQ6 [facility] Last Admin: 10/04/17 13:36 Dose: Not Given Amlodipine Besylate (Norvasc) 10 mg PO DAILY [facility] Last Admin: 10/04/17 08:18 Dose: 10 mg Atorvastatin Calcium (Lipitor) 20 mg PO HS [facility] Last Admin: 10/03/17 21:11 Dose: 20 mg Calcitriol (Rocaltrol) 0.5 mcg PO TTS [facility] Last Admin: 10/03/17 08:08 Dose: 0.5 mcg Carvedilol (Coreg) 12.5 mg PO Q12 [facility] Last Admin: 10/04/17 08:19 Dose: 12.5 mg Clonidine HCl (Catapres) 0.2 mg PO Q12 [facility] Last Admin: 10/04/17 08:18 Dose: 0.2 mg Cyclobenzaprine HCl (Flexeril) 5 mg PO Q8 [facility] Last Admin: 10/04/17 13:52 Dose: 5 mg Duloxetine HCl (Cymbalta) 20 mg PO DAILY [facility] Last Admin: 10/04/17 08:19 Dose: 20 mg Epoetin Tobin (Procrit) 20,000 unit IV TTS [facility] Last Admin: 10/04/17 16:14 Dose: 20,000 unit Heparin Sodium (Porcine) (Heparin) 5,000 units SC Q12 [facility] PRN Reason: Protocol Last Admin: 10/04/17 08:15 Dose: 5,000 units Hydromorphone HCl (Dilaudid) 2 mg PO Q6 PRN PRN Reason: Pain, severe (8-10) Levetiracetam (Keppra) 500 mg PO Q12 [facility] Last Admin: 10/04/17 08:19 Dose: 500 mg Levothyroxine Sodium (Synthroid) 75 mcg PO DAILY@0630 [facility] Last Admin: 10/04/17 06:39 Dose: 75 mcg Ondansetron HCl (Zofran Inj) 4 mg IVP Q6 PRN PRN Reason: Nausea/Vomiting Pantoprazole Sodium (Protonix Ec Tab) 40 mg PO DAILY [facility] Last Admin: 10/04/17 08:18 Dose: 40 mg Pregabalin (Lyrica) 50 mg PO Q12 [facility] Last Admin: 10/04/17 08:14 Dose: 50 mg Tramadol HCl (Ultram) 50 mg PO Q6 PRN PRN Reason: Pain, moderate (4-7) Last Admin: 10/04/17 08:13 Dose: 50 mg - Labs Labs: 10/03/17 05:20 10/04/17 05:20 - Constitutional Appears: No Acute Distress - Head Exam Head Exam: ATRAUMATIC - Eye Exam Eye Exam: absent: Scleral icterus - ENT Exam ENT Exam: Mucous Membranes Moist - Neck Exam Neck Exam: absent: Meningismus - Respiratory Exam Respiratory Exam: absent: Rales, Rhonchi, Wheezes, Respiratory Distress - Cardiovascular Exam Cardiovascular Exam: REGULAR RHYTHM, +S1, +S2 - GI/Abdominal Exam GI & Abdominal Exam: Soft. absent: Tenderness - Rectal Exam Rectal Exam: Deferred - Extremities Exam Extremities Exam: absent: Normal Inspection (right AK stump with clean and dry dressing) - Neurological Exam Neurological Exam: Alert, Oriented x3 - Psychiatric Exam Psychiatric exam: Normal Affect - Skin Skin Exam: Dry, Intact Assessment and Plan - Assessment and Plan (Free Text) Assessment: 56 yo female with history of ESRD, DM2, HTN and PAD had right BKA at [facility] on because of non-healing wound on the right leg. She was transferred to [facility] and admitted to TCU for continued management and therapy. Right BK stump did not heal and became necrotic. On 09/29/17 patient had AKA of the right leg. 1. PAD Post right AKA daily dressing and wound care management pain more tolerable continue pain management patient still with leukocytosis, probably reactive because of pain repeat CBC in am 2. ESRD HD on TTh[facility] Dr Hirsch on renal consult 3. Anemia of Chronic Disease Hgb: 9.5 continue Procrit 20,000 units IV TThS 4. Anxiety on Ativan PRN 5. Hypothyroidism continue Levothyroxine 75 mcg PO daily TSH: 2.16 6. HTN BP stable continue Zestril/Coreg/Norvasc/Catapress 7. Seizure Keppra 500mg PO q 12hrs 8. CAD s/p coronary stent placement continue Coreg/ASA/Lipitor 9. DVT Prophylaxis Heparin 5000 units q 12hrs
[2017-10-04] MEDS: Simethicone 80 mg Chewtab PO PRN (20:19)
[2017-10-04] MEDS ORDERED: Atropine-Diphenoxylate 0.025-2.5mg/5 mL Oral Liq (60 ml) PO PRN (20:55)
--- NOTE | 2017-10-04 23:25 | CP.PCM.PN ---
Subjective - Date & Time of Evaluation Date of Evaluation: 10/04/17 Time of Evaluation: 13:00 - Subjective Subjective: Patient seen after PT today, before HD session; reported feeling tired; denying any difficulty breathing; consuming more of her meals today per nursing staff; subsequently called by HD nurse 1.5 hrs into HD session to inform me that patient would like to stop the treatment, finally agreed to do 1 more hour; Objective - Vital Signs/Intake and Output Vital Signs (last 24 hours): Temp Pulse Resp BP Pulse Ox 98.9 F 121 H 20 190/95 H 100 10/04/17 20:01 10/04/17 22:42 10/04/17 22:42 10/04/17 22:42 10/04/17 22:42 - Medications Medications: Current Medications Acetaminophen (Tylenol 325mg Tab) 650 mg PO Q4 PRN PRN Reason: Pain, Mild (1-3) Albuterol Sulfate (Albuterol 0.083% Inhal Yaneli (2.5 Mg/3 Ml) Ud) 2.5 mg IH RQ6 [facility] Last Admin: 10/04/17 19:31 Dose: Not Given Amlodipine Besylate (Norvasc) 10 mg PO DAILY [facility] Last Admin: 10/04/17 08:18 Dose: 10 mg Atorvastatin Calcium (Lipitor) 20 mg PO HS [facility] Last Admin: 10/04/17 21:54 Dose: 20 mg Calcitriol (Rocaltrol) 0.5 mcg PO TTS [facility] Last Admin: 10/03/17 08:08 Dose: 0.5 mcg Carvedilol (Coreg) 12.5 mg PO Q12 [facility] Last Admin: 10/04/17 21:36 Dose: 12.5 mg Clonidine HCl (Catapres) 0.2 mg PO Q12 [facility] Last Admin: 10/04/17 21:34 Dose: 0.2 mg Cyclobenzaprine HCl (Flexeril) 5 mg PO Q8 [facility] Last Admin: 10/04/17 21:53 Dose: 5 mg Diphenoxylate HCl/Atropine (Lomotil) 5 ml PO QID PRN PRN Reason: Diarrhea Duloxetine HCl (Cymbalta) 20 mg PO DAILY [facility] Last Admin: 10/04/17 08:19 Dose: 20 mg Epoetin Tobin (Procrit) 20,000 unit IV TTS [facility] Last Admin: 10/04/17 16:14 Dose: 20,000 unit Heparin Sodium (Porcine) (Heparin) 5,000 units SC Q12 [facility] PRN Reason: Protocol Last Admin: 10/04/17 21:52 Dose: 5,000 units Hydromorphone HCl (Dilaudid) 2 mg PO Q6 PRN PRN Reason: Pain, severe (8-10) Last Admin: 10/04/17 17:51 Dose: 2 mg Levetiracetam (Keppra) 500 mg PO Q12 [facility] Last Admin: 10/04/17 21:53 Dose: 500 mg Levothyroxine Sodium (Synthroid) 75 mcg PO DAILY@0630 [facility] Last Admin: 10/04/17 06:39 Dose: 75 mcg Ondansetron HCl (Zofran Inj) 4 mg IVP Q6 PRN PRN Reason: Nausea/Vomiting Last Admin: 10/04/17 16:48 Dose: 4 mg Pantoprazole Sodium (Protonix Ec Tab) 40 mg PO DAILY [facility] Last Admin: 10/04/17 08:18 Dose: 40 mg Pregabalin (Lyrica) 50 mg PO Q12 [facility] Last Admin: 10/04/17 21:55 Dose: 50 mg Simethicone (Mylicon Chew Tab) 80 mg PO Q6H PRN PRN Reason: .gas or abominal pain Last Admin: 10/04/17 20:19 Dose: 80 mg Tramadol HCl (Ultram) 50 mg PO Q6 PRN PRN Reason: Pain, moderate (4-7) Last Admin: 10/04/17 08:13 Dose: 50 mg - Labs Labs: 10/03/17 05:20 10/04/17 05:20 - Constitutional Appears: Non-toxic, No Acute Distress - Eye Exam Eye Exam: Normal appearance - ENT Exam ENT Exam: Mucous Membranes Moist - Respiratory Exam Respiratory Exam: Clear to Ausculation Bilateral. absent: Respiratory Distress - Cardiovascular Exam Cardiovascular Exam: RRR, Murmur. absent: Gallop, Rubs - GI/Abdominal Exam GI & Abdominal Exam: Soft. absent: Distended, Tenderness - Extremities Exam Additional comments: no leg edema; - Neurological Exam Neurological Exam: Alert, Awake - Psychiatric Exam Psychiatric exam: Normal Mood. absent: Agitated - Skin Skin Exam: Cyanosis, Warm Assessment and Plan (1) ESRD on hemodialysis Assessment & Plan: Relatively stable electrolyte status despite missing HD yesterday; stable volume status; had HD today for 2.5 hrs, next for tomorrow to put patient back on routine; Status: Chronic (2) CHF (congestive heart failure) Assessment & Plan: Diastolic dysfunction per previous echo; currently euvolemic, will continue with UF on HD per routine; Status: Chronic (3) Hypertensive CKD, ESRD on dialysis Assessment & Plan: BP fluctuating; had been well controlled lately; continue current meds; Status: Acute (4) Anemia in CKD (chronic kidney disease) Assessment & Plan: Hgb just below goal; continue EPO 20,000 u on HD; continue to hold IV iron ( ferritin too high); Status: Chronic (5) Chronic kidney disease-mineral and bone disorder Assessment & Plan: PTH elevated; continue calcitriol 0.5 mcg on TTS; continue to hold phos binders for now; Status: Chronic
[2017-10-04] MEDS ORDERED: Atropine-Diphenoxylate 0.025-2.5 mg Tab PO ONE (23:32)
--- NOTE | 2017-10-04 23:34 | CP.PCM.PCO ---
Physician Communication Note - Physician Communication Note Physician Communication Note: BP 190/95mmHg. HR 120/min. Metoprolol 25mg PO given
[2017-10-05] MEDS: Albuterol 0.083% Inhal Sol (2.5 mg/3 mL) UD IH SCH ×5 (01:00→19:42)
[2017-10-05] MEDS: Levothyroxine 75 MCG TAB PO SCH (06:20)
[2017-10-05 07:06] LABS: BASO % 0.1 % (0.0-2.0); HEMOGLOBIN 11.5 g/dL (12.0-16.0); LYMPH # 0.7 K/uL (1.0-4.3); LYMPH % 3.3 % (20.0-40.0); MEAN CELL VOLUME 87.9 fl (81.0-99.0); MEAN CORPUSCULAR HEMOGLOBIN 26.6 pg (27.0-31.0); MEAN CORPUSCULAR HGB CONC 30.2 g/dL (33.0-37.0); MEAN PLATELET VOLUME 8.6 fl (7.2-11.7); MONO # 0.5 K/uL (0.0-0.8); MONO % 2.3 % (0.0-10.0); NEUT # 19.4 K/uL (1.8-7.0); NEUT % 94.3 % (50.0-75.0); NRBC % 0.1 % (0.0-0.0); PLATELET COUNT 418 K/uL (130-400); RBC 4.34 Mil/uL (3.80-5.20); RED CELL DISTRIBUTION WIDTH 20.4 % (11.5-14.5); WHITE BLOOD COUNT 20.6 K/uL (4.8-10.8)
[2017-10-05] MEDS: Pantoprazole 40 mg EC Tab PO SCH (08:49)
--- NOTE | 2017-10-05 08:49 | CARD ---
APPROVED REPORT Date of service: 10/04/2017 <Conclusion> Sinus tachycardia Biatrial enlargement Left ventricular hypertrophy with repolarization abnormality Abnormal ECG
[2017-10-05 12:40] LABS: ANISOCYTOSIS MODERATE; BANDS 2 % (0-2); HYPOCHROMIC SLIGHT; LYMPHOCYTE 4 % (20-50); MONOCYTE 2 % (0-10); NEUTROPHIL 92 % (42-75); PLATELET ESTIMATE SLIGHTLY INCREASED (NORMAL); TOTAL CELLS COUNTED 100
[2017-10-05 12:41] LABS: OVALOCYTES SLIGHT; SCHISTOCYTES SLIGHT; TEARDROP CELLS SLIGHT; TOXIC GRANULATION PRESENT
[2017-10-05] MEDS: Simethicone 80 mg Chewtab PO PRN ×2 (14:15→23:02)
[2017-10-05] MEDS: Epoetin Alfa 20000 UNIT/ML Inj IV SCH (16:36)
--- NOTE | 2017-10-05 19:49 | CP.PCM.PN ---
Subjective - Date & Time of Evaluation Date of Evaluation: 10/05/17 Time of Evaluation: 19:47 - Subjective Subjective: Patient seen on HD; hallucinating; reports being in excruciating pain but only when specifically asked; not consuming much PO intake per nursing staff, only nepro; didn't get PT today due to high BP and patient reportedly claiming that she would collapse; Objective - Vital Signs/Intake and Output Vital Signs (last 24 hours): Temp Pulse Resp BP Pulse Ox 98.2 F 105 H 19 160/61 H 105 H 10/05/17 08:02 10/05/17 14:07 10/05/17 08:02 10/05/17 15:00 10/05/17 14:05 - Medications Medications: Current Medications Acetaminophen (Tylenol 325mg Tab) 650 mg PO Q4 PRN PRN Reason: Pain, Mild (1-3) Albuterol Sulfate (Albuterol 0.083% Inhal Yaneli (2.5 Mg/3 Ml) Ud) 2.5 mg IH RQ6 [facility] Last Admin: 10/05/17 19:42 Dose: 2.5 mg Amlodipine Besylate (Norvasc) 10 mg PO DAILY [facility] Last Admin: 10/05/17 10:00 Dose: 10 mg Atorvastatin Calcium (Lipitor) 20 mg PO HS [facility] Last Admin: 10/04/17 21:54 Dose: 20 mg Calcitriol (Rocaltrol) 0.5 mcg PO TTS [facility] Last Admin: 10/05/17 09:00 Dose: 0.5 mcg Carvedilol (Coreg) 25 mg PO Q12 [facility] Last Admin: 10/05/17 08:30 Dose: Not Given Clonidine HCl (Catapres) 0.2 mg PO Q8H [facility] Cyclobenzaprine HCl (Flexeril) 5 mg PO Q8 [facility] Last Admin: 10/05/17 14:09 Dose: 5 mg Duloxetine HCl (Cymbalta) 20 mg PO DAILY [facility] Last Admin: 10/05/17 08:45 Dose: 20 mg Heparin Sodium (Porcine) (Heparin) 5,000 units SC Q12 [facility] PRN Reason: Protocol Last Admin: 10/05/17 08:45 Dose: 5,000 units Hydromorphone HCl (Dilaudid) 2 mg PO Q6 PRN PRN Reason: Pain, severe (8-10) Last Admin: 10/04/17 17:51 Dose: 2 mg Levetiracetam (Keppra) 500 mg PO Q12 [facility] Last Admin: 10/05/17 08:46 Dose: 500 mg Levothyroxine Sodium (Synthroid) 75 mcg PO DAILY@0630 [facility] Last Admin: 10/05/17 06:20 Dose: 75 mcg Minoxidil (Minoxidil) 2.5 mg PO DAILY [facility] Ondansetron HCl (Zofran Inj) 4 mg IVP Q6 PRN PRN Reason: Nausea/Vomiting Last Admin: 10/05/17 00:01 Dose: 4 mg Pantoprazole Sodium (Protonix Ec Tab) 40 mg PO DAILY [facility] Last Admin: 10/05/17 08:49 Dose: 40 mg Pregabalin (Lyrica) 50 mg PO Q12 [facility] Last Admin: 10/05/17 08:49 Dose: 50 mg Simethicone (Mylicon Chew Tab) 80 mg PO Q6H PRN PRN Reason: .gas or abominal pain Last Admin: 10/05/17 14:15 Dose: 80 mg Tramadol HCl (Ultram) 50 mg PO Q6 PRN PRN Reason: Pain, moderate (4-7) Last Admin: 10/05/17 17:27 Dose: 50 mg - Labs Labs: 10/05/17 05:25 10/04/17 05:20 - Constitutional Appears: Non-toxic, No Acute Distress, Confused - Eye Exam Eye Exam: Normal appearance - Respiratory Exam Respiratory Exam: Clear to Ausculation Bilateral. absent: Respiratory Distress - Cardiovascular Exam Cardiovascular Exam: RRR, Murmur. absent: Gallop, Rubs - GI/Abdominal Exam GI & Abdominal Exam: Soft Additional comments: lower quadrant tenderness; - Extremities Exam Additional comments: no edema; cool to touch; - Neurological Exam Neurological Exam: Alert, Awake - Psychiatric Exam Psychiatric exam: absent: Agitated Additional comments: confused; - Skin Skin Exam: absent: Cyanosis Assessment and Plan (1) ESRD on hemodialysis Assessment & Plan: Stable volume and electrolyte status; very little PO intake; UF goal cut to just 500 cc today; next HD for Monday per routine; Status: Chronic (2) Hypertensive CKD, ESRD on dialysis Assessment & Plan: Episodic spikes in BP; unclear why BP so high since yesterday evening; given multiple doses of clonidine and coreg increased to 25 mg q12h by primary team; minoxidil added for tomorrow, recommend to observe BP closely before starting minoxidil; patient previously on lisinopril 40 as well, will hold off on restarting for now; Status: Acute (3) CHF (congestive heart failure) Assessment & Plan: Currently euvolemic; diastolic dysfunction; continue adequate BP control; Status: Chronic (4) Anemia in CKD (chronic kidney disease) Assessment & Plan: Hgb now above goal, holding EPO for now; Status: Chronic (5) Chronic kidney disease-mineral and bone disorder Assessment & Plan: PTH elevated, continue calcitriol 0.5 mcg qTTS; Status: Chronic
[2017-10-05 22:08] VITALS: RESP 20; TEMP 96.5; O2SAT 99
[2017-10-05 23:05] VITALS: PULSE 110
[2017-10-05 23:49] VITALS: BP 159/93
[2017-10-06] MEDS: Albuterol 0.083% Inhal Sol (2.5 mg/3 mL) UD IH SCH (01:02)
[2017-10-06] MEDS ORDERED: Rocuronium 10 mg/ml (5 ml) IV ONE (04:45)
[2017-10-06] MEDS ORDERED: Etomidate 20 mg/10ml Inj IV ONE (04:45)
--- NOTE | 2017-10-06 05:27 | CP.PCM.PRO ---
Pronouncement of Note - Clinical Findings Physical Exam: No Response Verbal/Painful Stimuli, Absent Peripheral Pulses{ Carotid & Femoral}, Absent Heart & Breath Sounds, No Pupillary Light Reflex, Absence of Vital Signs - Pronouncement Time Time of Pronouncement of : 05:09 - Notifications Pronouncement Notifications: Family Notified Regional Climate Change Analyst Notified: No - Autopsy Autopsy Requested: No - [place]: [id number]
--- NOTE | 2017-10-06 05:31 | CP.PCM.DIS ---
Provider - Provider Date of Admission: 10/02/17 19:21 Attending physician: Celestine Shine DO Primary care physician: Jose Lanza MD Time Spent in preparation of Discharge (in minutes): 30 Diagnosis - Discharge Diagnosis (1) Cardiopulmonary arrest Status: Acute Priority: High Onset Date: ~10/06/17 Hospital Course - Lab Results Lab Results: Most Recent Lab Values WBC 20.6 K/uL (4.8-10.8) H 10/05/17 05:25 RBC 4.34 Mil/uL (3.80-5.20) 10/05/17 05:25 Hgb 11.5 g/dL (12.0-16.0) L D 10/05/17 05:25 Hct 38.2 % (34.0-47.0) 10/05/17 05:25 MCV 87.9 fl (81.0-99.0) 10/05/17 05:25 MCH 26.6 pg (27.0-31.0) L 10/05/17 05:25 MCHC 30.2 g/dL (33.0-37.0) L 10/05/17 05:25 RDW 20.4 % (11.5-14.5) H 10/05/17 05:25 Plt Count 418 K/uL (130-400) H 10/05/17 05:25 MPV 8.6 fl (7.2-11.7) 10/05/17 05:25 Neut % (Auto) 94.3 % (50.0-75.0) H 10/05/17 05:25 Lymph % (Auto) 3.3 % (20.0-40.0) L 10/05/17 05:25 [place] % (Auto) 2.3 % (0.0-10.0) 10/05/17 05:25 Eos % (Auto) 0.0 % (0.0-4.0) 10/05/17 05:25 Baso % (Auto) 0.1 % (0.0-2.0) 10/05/17 05:25 Neut # (Auto) 19.4 K/uL (1.8-7.0) H 10/05/17 05:25 Lymph # (Auto) 0.7 K/uL (1.0-4.3) L 10/05/17 05:25 [place] # (Auto) 0.5 K/uL (0.0-0.8) 10/05/17 05:25 Eos # (Auto) 0.0 K/uL (0.0-0.7) 10/05/17 05:25 Baso # (Auto) 0.0 K/uL (0.0-0.2) 10/05/17 05:25 Neutrophils % (Manual) 92 % (42-75) H 10/05/17 05:25 Band Neutrophils % 2 % (0-2) 10/05/17 05:25 Lymphocytes % (Manual) 4 % (20-50) L 10/05/17 05:25 Monocytes % (Manual) 2 % (0-10) 10/05/17 05:25 Toxic Granulation Present 10/05/17 05:25 Platelet Estimate Slightly increased (NORMAL) H 10/05/17 05:25 Hypochromasia (manual) Slight 10/05/17 05:25 Anisocytosis (manual) Moderate 10/05/17 05:25 Tear Drop Cells Slight 10/05/17 05:25 Ovalocytes Slight 10/05/17 05:25 Schistocytes Slight 10/05/17 05:25 Sodium 134 mmol/l (132-148) 10/04/17 05:20 Potassium 4.5 MMOL/L (3.6-5.0) 10/04/17 05:20 Chloride 93 mmol/L (98-107) L 10/04/17 05:20 Carbon Dioxide 20 mmol/L (22-30) L 10/04/17 05:20 Anion Gap 26 (10-20) H 10/04/17 05:20 BUN 106 mg/dl (7-17) H* D 10/04/17 05:20 Creatinine 7.1 mg/dl (0.7-1.2) H 10/04/17 05:20 Est GFR ( Amer) 7 10/04/17 05:20 Est GFR (Non-Af Amer) 6 10/04/17 05:20 POC Glucose (mg/dL) 125 mg/dL (65-110) H 10/04/17 17:19 Random Glucose 89 mg/dL (65-105) 10/04/17 05:20 Calcium 8.6 mg/dL (8.4-10.2) 10/04/17 05:20 - Hospital Course Hospital Course: 56 yo female with history of ESRD, DM2, HTN and PAD had right BKA at [facility] on because of non-healing wound on the right leg. She was transferred to [facility] and admitted to TCU for continued management and therapy. Right BK stump did not heal and became necrotic. On 09/29/17 patient had AKA of the right leg. On AM of 10/06/2017, patient became unresponsive and a code blue was called. Patient was noted to have significant amount of fluid in airway when intubation was being performed, thus code blue may have been initiated by aspiration event. Attempts were made to resuscitate patient, but were unsuccessful, and time of was declared at 509 AM. Family was notified. Discharge Exam - Head Exam Head Exam: ATRAUMATIC Discharge Plan - Follow Up Plan Condition: Instructions: Non-pharmacological Pain Management Therapies for Adults (GEN) Referrals: Jose Lanza MD [Primary Care Provider] -
[2017-10-06] MEDS ORDERED: Sodium Bicarbonate 7.5% (0.9 MEQ/ML) 50ML INJ IV ONE (06:57)
[2017-10-06] MEDS ORDERED: Amiodarone 150mg/3 ml vial IV ONE (06:57)
== END 2017-10-06 09:21 | DRG 559 ==
PROVIDERS: ADMIT Internal Medicine; ATTEND Internal Medicine
PROC: F07Z9FZ Gait Training/Functional Ambulation Treatment using Assistive, Adaptive, Supportive or Protective Equipment (ICD-10-PCS; principal; 2017-10-02)
PROC: F08Z4FZ Home Management Treatment using Assistive, Adaptive, Supportive or Protective Equipment (ICD-10-PCS; 2017-10-02)
PROC: 5A1D70Z Performance of Urinary Filtration, Intermittent, Less than 6 Hours Per Day (ICD-10-PCS; 2017-10-04)
PROC: 0BH17EZ Insertion of Endotracheal Airway into Trachea, Via Natural or Artificial Opening (ICD-10-PCS; 2017-10-06)
PROC: 5A12012 Performance of Cardiac Output, Single, Manual (ICD-10-PCS; 2017-10-06)
DX: Z47.81 Encounter for orthopedic aftercare following surgical amputation (principal); N18.6 End stage renal disease; I13.2 Hypertensive heart and chronic kidney disease with heart failure and with stage 5 chronic kidney disease, or end stage renal disease; I50.32 Chronic diastolic (congestive) heart failure; Z89.611 Acquired absence of right leg above knee; I46.9 Cardiac arrest, cause unspecified; G54.6 Phantom limb syndrome with pain; F06.31 Mood disorder due to known physiological condition with depressive features; I25.10 Atherosclerotic heart disease of native coronary artery without angina pectoris; G40.909 Epilepsy, unspecified, not intractable, without status epilepticus; D63.1 Anemia in chronic kidney disease; E11.22 Type 2 diabetes mellitus with diabetic chronic kidney disease; E11.51 Type 2 diabetes mellitus with diabetic peripheral angiopathy without gangrene; D72.828 Other elevated white blood cell count; J44.9 Chronic obstructive pulmonary disease, unspecified; E03.9 Hypothyroidism, unspecified; E78.5 Hyperlipidemia, unspecified; E78.00 Pure hypercholesterolemia, unspecified; K21.9 Gastro-esophageal reflux disease without esophagitis; E83.89 Other disorders of mineral metabolism; F41.9 Anxiety disorder, unspecified; Z99.2 Dependence on renal dialysis; Z86.73 Personal history of transient ischemic attack (TIA), and cerebral infarction without residual deficits; Z87.891 Personal history of nicotine dependence; Z95.5 Presence of coronary angioplasty implant and graft; Z88.1 Allergy status to other antibiotic agents